=== PATIENT | female | born 1940 | race Caucasian/White ===

== ENCOUNTER 2016-07-09 13:35 | Emergency (ER) | payer MEDICARE, OTHER ==
--- NOTE | 2016-07-09 14:11 | ERPHSYRPT ---
- History of Present Illness Time Seen by Provider: 07/09/16 14:10 Source: patient, family Exam Limitations: no limitations Patient Subjective Stated Complaint: PT REPORTS HAVING THE FLU THIS WEEK-STATES IT HAS WENT INTO HER LUNGS-REPORTS PRODUCTIVE COUGH WITH WHITE SPUTUM-REPORTS FEVER AT HOME A FEW DAYS AGO Triage Nursing Assessment: PT PALE WARM ET [id number] IN COMPLETE SENTENCES WITHE ASE-NO RETRACTIONS NOTED-PERSISTANT COUGH NOTED DURING TRIAGE- LUNGS DIMINISHED Physician History: The patient is 76-year-old female with family complaining that one week ago she had flulike symptoms that included a sore throat cough and fever. Now for the last 2 days her cough has increased especially at night. She states that every time she has a problem with a flulike illness it ends up settling in her lungs. Her past medical history is significant for asthma, COPD, hypertension, and diabetes. Timing/Duration: week(s) (1) Cough Quality/Degree: moderate, productive cough, sputum Possible Cause: frequent episodes Modifying Factors: Improves With: albuterol inhaler, albuterol nebulizer, coughing Associated Symptoms: cough, shortness of breath Allergies/Adverse Reactions: Iodinated Contrast Media - Oral and Allergy (Intermediate, Verified 07/09/16 13: 48) Hives hives, rash, diff breathing belladonna alkaloids [From B & O 16-A Supprette] Allergy (Mild, Verified 13:48) CHILD ALLERGY cephalexin monohydrate [From Keflex] Allergy (Mild, Verified 07/09/16 13:48) Hives furosemide [From Lasix] Allergy (Mild, Verified 07/09/16 13:48) HEART ARTHYM prochlorperazine edisylate [From Compazine] Allergy (Mild, Verified 07/09/16 13: 48) HALLUCINATIONS prochlorperazine maleate [From Compazine] Allergy (Mild, Verified 07/09/16 13:48 ) HALLUCINATIONS Sulfa (Sulfonamide Antibiotics) [Sulfa(Sulfonamide Antibiotics)] Allergy (Mild, Verified 07/09/16 13:48) Hives codeine [Codeine] Adverse Reaction (Mild, Verified 07/09/16 13:48) Headache hydrocodone bitartrate [From Vicodin] Adverse Reaction (Mild, Verified 07/09/16 13:48) Headache ketorolac tromethamine [From Toradol] Adverse Reaction (Mild, Verified 07/09/16 13:48) Vomiting metformin HCl [From Glucophage] Adverse Reaction (Mild, Verified 07/09/16 13:48) Vomiting naproxen [From Naprosyn] Adverse Reaction (Mild, Verified 07/09/16 13:48) Headache opium *RETIRED-06/05/12 [From B & O 16-A Supprette] Adverse Reaction (Mild, Verified 07/09/16 13:48) DON'T LIKE THEM phenytoin sodium [From Dilantin] Adverse Reaction (Mild, Verified 07/09/16 13:48 ) FEEL DRUNK phenytoin sodium extended [From Dilantin] Adverse Reaction (Mild, Verified 07/09 13:48) FEEL DRUNK fluoxetine HCl [From Prozac] Adverse Reaction (Verified 07/09/16 13:48) Lactobacillus acidophilus [From Acidophilus] Adverse Reaction (Verified 13:48) diuretics Allergy (Intermediate, Uncoded 07/09/16 13:48) HEART ARRHYTHMIAS pt states she is allergic to all diuretics. pt has cardiac arrhythmias influenza vaccine Adverse Reaction (Uncoded 07/09/16 13:48) Home Medications: Levothyroxine Sodium 50 Mcg [Synthroid 50 Mcg] 25 mcg PO DAILY 09/03/11 [ History] Lisinopril 5 mg PO DAILY 09/03/11 [History] Omeprazole 20 MG [Prilosec 20 mg] 20 mg PO DAILY 09/03/11 [History] Insulin Detemir [Levemir] 45 unit SQ 1900 10/20/11 [History] Carvedilol 6.25 mg [Coreg 6.25 MG] 12.5 mg PO BID 09/30/13 [History] Potassium Chloride [K-Dur] 10 meq PO QID 09/30/13 [History] Albuterol Sulfate [Proair Hfa] 0 gm IH UD 06/27/15 [History] Hx Tetanus, Diphtheria Vaccination/Date Given: No Hx Influenza Vaccination/Date Given: No Hx Pneumococcal Vaccination/Date Given: No Immunizations Up to Date: Yes - Review of Systems Constitutional: No Fever, No Chills Eyes: No Symptoms Ears, Nose, & Throat: No Symptoms Respiratory: Cough, Dyspnea on Exertion (VILLEGAS), Wheezing Cardiac: No Chest Pain, No Edema, No Syncope Abdominal/Gastrointestinal: No Abdominal Pain, No Nausea, No Vomiting, No Diarrhea Genitourinary Symptoms: No Dysuria Musculoskeletal: No Back Pain, No Neck Pain Skin: No Rash Neurological: No Dizziness, No Focal Weakness, No Sensory Changes Psychological: No Symptoms Endocrine: No Symptoms Hematologic/Lymphatic: No Symptoms Immunological/Allergic: No Symptoms All Other Systems: Reviewed and Negative - Past Medical History Pertinent Past Medical History: Yes Neurological History: No Pertinent History ENT History: No Pertinent History Cardiac History: Congestive Heart Failure, Hypertension Respiratory History: Asthma, Bronchitis, Emphysema Endocrine Medical History: Diabetes Type II, Hypothyroidism Musculoskeletal History: Arthritis, Osteoarthritis GI Medical History: GERD History: No Pertinent History Psycho-Social History: Depression Female Reproductive Disorders: Breast Cancer, Cervical Cancer Other Medical History: CANCERS ALL IN REMISSION - Past Surgical History Past Surgical History: Yes Neuro Surgical History: No Pertinent History Cardiac: Cardiac Catheterization Respiratory: Lobectomy Gastrointestinal: Appendectomy, Cholecystectomy, Hemorrhoidectomy Genitourinary: No Pertinent History Musculoskeletal: Orthopedic Surgery Female Surgical History: Hysterectomy, Tubal Ligation, Other Other Surgical History: MASTECTOMY RT BREAST,BREAST CA,LUNG RT MIDDLE LOBE REMOVED,NISSON FLUNDOPLASTY,KNEE BACL SURG, shoulder surgery - Social History Smoking Status: Former smoker How long have you smoked: 5 Exposure to second hand smoke: No Drug Use: none Patient Lives Alone: Yes - Female History Hx Now: No - Nursing Vital Signs Nursing Vital Signs: Initial Vital Signs Temperature 97.7 F Temperature Source Oral Pulse Rate 89 Respiratory Rate 20 Blood Pressure [Left Arm] 137/82 Pain Intensity 0 - Physical Exam General Appearance: no apparent distress, alert Eye Exam: PERRL/EOMI, eyes nml inspection Ears, Nose, Throat Exam: normal ENT inspection Neck Exam: normal inspection, non-tender, supple, full range of motion Respiratory Exam: normal breath sounds, lungs clear, No respiratory distress, No prolonged expirations, No rhonchi, No wheezing Cardiovascular Exam: regular rate/rhythm, normal heart sounds Gastrointestinal/Abdomen Exam: soft, No tenderness Pelvic Exam: not done Rectal Exam: not done Back Exam: normal inspection, No CVA tenderness, No vertebral tenderness Extremity Exam: normal inspection, normal range of motion Neurologic Exam: alert, oriented x 3, cooperative, normal mood/affect, sensation nml, No motor deficits Skin Exam: normal color, warm, dry, No rash Lymphatic Exam: No adenopathy SpO2 Interpretation: normal SpO2: 98 Oxygen Delivery: Room Air - Radiology Exams Chest X-ray Interpretation: Interpreted by me, Negative (non acute CXR, unchanged comp CXR 06/27/15) Ordered Tests: Active Orders 24 hr Category Date Time Status CHEST 2 VIEWS (PA AND LAT) Stat Exams 07/09/16 14:14 Taken - Progress Progress: unchanged Blood Culture(s) Obtained: No Antibiotics given: Yes Counseled pt/family regarding: diagnosis, rad results - Departure Time of Disposition: 15:01 Departure Disposition: Home Clinical Impression: Bronchitis Condition: Stable Critical Care Time: No Additional Instructions: You have bronchitis. The chest x-ray did not show pneumonia. Take prednisone 60 mg daily for 5 days. Take levofloxacin 500 mg for 7 days. Continue to take your breathing treatments as needed. Follow-up in one to 2 days. Prescriptions: Levofloxacin [Levofloxacin 500 MG Tablet] 500 mg PO QAM #7 tablet Prednisone 10 mg [Deltasone 10 mg] 60 mg PO UD #30 tablet
[2016-07-09 14:51] VITALS: BP 137/82; PULSE 89
[2016-07-09 15:08] VITALS: O2SAT 98
--- NOTE | 2016-07-09 22:36 | XRAY ---
Indication: Cough. Comparison: June 27, 2015. PA/lateral chest again hyperinflated with right base pleural thickening and postsurgical changes in the right chest and epigastrium. Remaining lungs clear. Heart is not enlarged. Bony thorax intact again with mild osteopenia, degenerative changes, and scoliosis. Impression: Stable nonacute chest with chronic features.
== END 2016-07-09 15:17 | disposition home or self-care (01) ==
LOC: ED 13:35
DX: J40 Bronchitis, not specified as acute or chronic (principal); R05 Cough; R06.09 Other forms of dyspnea; R06.2 Wheezing; J45.909 Unspecified asthma, uncomplicated; J43.9 Emphysema, unspecified; Z79.899 Other long term (current) drug therapy
CPT/HCPCS: 71020; 99284

== ENCOUNTER 2016-10-14 15:24 | Emergency (ER) | payer MEDICARE, OTHER ==
[2016-10-14] MEDS ORDERED: ATARAX 25 MG PO ONE (15:51)
[2016-10-14] MEDS ORDERED: ATARAX 25 MG ONE (15:54)
--- NOTE | 2016-10-14 16:05 | ERPHSYRPT ---
- History of Present Illness Time Seen by Provider: 10/14/16 15:39 Source: patient, family (son) Patient Subjective Stated Complaint: PT REPORTS BP IS HIGH-STATES THAT DR PATEL RECENTLY CHANGED HER BP MED-DENIES HEADACHE-DENIES NUMBNESS OR TINLGING- REPORTS RECENT SURGERY TO SHOULDER Triage Nursing Assessment: PT PINK WARM ET [id number] REACTIVE-ANSWERING ALL QUESTIONS CORRECTLY-NO UNUSUAL PAIN OR SENSATION Physician History: CC: high blood pressure Hx: 76 y/o patient of Dr Escobar/Manjeet/Tj. She had left shoulder surgery 10 days ago. Has done very well. She is taking ultracet and meperidine for post op pain as she has several other allergies. She noted higher BP yesterday. Called Dr Patel and was told to increase amlodipine from 2.5mg to 5mg daily. She has had some headache. Some increased shoulder pain. No fever or chills. She called [facility] and was told to come to ER for BP check. No chest or abd pain. No swelling. No N/T/W. Timing/Duration: yesterday Severity: moderate Allergies/Adverse Reactions: doxycycline Allergy (Intermediate, Verified 10/14/16 15:37) Swelling Iodinated Contrast- Oral and IV Dye Allergy (Intermediate, Verified 10/14/16 15: 37) Hives hives, rash, diff breathing belladonna alkaloids [From B & O 16-A Supprette] Allergy (Mild, Verified 15:37) CHILD ALLERGY cephalexin monohydrate [From Keflex] Allergy (Mild, Verified 10/14/16 15:37) Hives furosemide [From Lasix] Allergy (Mild, Verified 10/14/16 15:37) HEART ARTHYM prochlorperazine edisylate [From Compazine] Allergy (Mild, Verified 10/14/16 15: 37) HALLUCINATIONS prochlorperazine maleate [From Compazine] Allergy (Mild, Verified 10/14/16 15:37 ) HALLUCINATIONS Sulfa (Sulfonamide Antibiotics) [Sulfa(Sulfonamide Antibiotics)] Allergy (Mild, Verified 10/14/16 15:37) Hives codeine [Codeine] Adverse Reaction (Mild, Verified 10/14/16 15:37) Headache hydrocodone bitartrate [From Vicodin] Adverse Reaction (Mild, Verified 10/14/16 15:37) Headache ketorolac tromethamine [From Toradol] Adverse Reaction (Mild, Verified 10/14/16 15:37) Vomiting metformin HCl [From Glucophage] Adverse Reaction (Mild, Verified 10/14/16 15:37) Vomiting naproxen [From Naprosyn] Adverse Reaction (Mild, Verified 10/14/16 15:37) Headache opium *RETIRED-06/05/12 [From B & O 16-A Supprette] Adverse Reaction (Mild, Verified 10/14/16 15:37) DON'T LIKE THEM phenytoin sodium [From Dilantin] Adverse Reaction (Mild, Verified 10/14/16 15:37 ) FEEL DRUNK phenytoin sodium extended [From Dilantin] Adverse Reaction (Mild, Verified 10/14 15:37) FEEL DRUNK fluoxetine HCl [From Prozac] Adverse Reaction (Verified 10/14/16 15:37) Lactobacillus acidophilus [From Acidophilus] Adverse Reaction (Verified 15:37) diuretics Allergy (Intermediate, Uncoded 10/14/16 15:37) HEART ARRHYTHMIAS pt states she is allergic to all diuretics. pt has cardiac arrhythmias influenza vaccine Adverse Reaction (Uncoded 10/14/16 15:37) Home Medications: Albuterol Sulfate [Ventolin Hfa] 8 gm IH UD 10/14/16 [History] Amlodipine Besylate 5 mg [Norvasc 5 mg] 5 mg PO DAILY 10/14/16 [History] Carvedilol 12.5 mg [Coreg 12.5 mg] 12.5 mg PO DAILY 10/14/16 [History] Fluoxetine HCl 20 mg [Prozac 20 MG] 20 mg PO DAILY 10/14/16 [History] Fluticasone/Salmeterol [Advair 250-50 Diskus] 1 each IH BID 10/14/16 [History] Glimepiride 2 mg [Amaryl 2 MG] 2 mg PO DAILY 10/14/16 [History] Insulin Detemir [Levemir] 45 unit SQ UD 10/14/16 [History] Levothyroxine Sodium 25 Mcg [Synthroid 25 Mcg] 25 mcg PO DAILY 10/14/16 [ History] Lisinopril 10 mg [Zestril 10 MG] 10 mg PO BID 10/14/16 [History] Loratadine 10 mg [Claritin 10 mg] 10 mg PO DAILY 10/14/16 [History] Lutein 10 mg PO DAILY 10/14/16 [History] Meperidine HCl 50 mg [Demerol 50 MG] 50 mg PO UD 10/14/16 [History] Metolazone 2.5 mg [Zaroxolyn 2.5 MG] 2.5 mg PO UD 10/14/16 [History] Omeprazole 20 MG [Prilosec 20 mg] 20 mg PO DAILY 10/14/16 [History] Potassium Chloride 10 Meq Tab* [Klor Con 10 MEQ] 10 meq PO BID 10/14/16 [ History] Tramadol HCl/Acetaminophen [Tramadol-Acetaminophn 37.5-325] 1 each PO UD [History] Hx Tetanus, Diphtheria Vaccination/Date Given: No Hx Influenza Vaccination/Date Given: No Hx Pneumococcal Vaccination/Date Given: No Immunizations Up to Date: Yes - Review of Systems Constitutional: No Fever, No Chills Eyes: No Symptoms Ears, Nose, & Throat: No Symptoms Respiratory: No Cough, No Dyspnea Cardiac: No Chest Pain Abdominal/Gastrointestinal: No Abdominal Pain, No Nausea, No Vomiting Skin: No Rash Neurological: Headache, No Focal Weakness, No Parasthesia All Other Systems: Reviewed and Negative - Past Medical History Pertinent Past Medical History: Yes Neurological History: No Pertinent History ENT History: No Pertinent History Cardiac History: Congestive Heart Failure, Hypertension Respiratory History: Asthma, Bronchitis, Emphysema Endocrine Medical History: Diabetes Type II, Hypothyroidism Musculoskeletal History: Arthritis, Osteoarthritis GI Medical History: GERD History: No Pertinent History Psycho-Social History: Depression Female Reproductive Disorders: Breast Cancer, Cervical Cancer Other Medical History: CANCERS ALL IN REMISSION - Past Surgical History Past Surgical History: Yes Neuro Surgical History: No Pertinent History Cardiac: Cardiac Catheterization Respiratory: Lobectomy Gastrointestinal: Appendectomy, Cholecystectomy, Hemorrhoidectomy Genitourinary: No Pertinent History Musculoskeletal: Orthopedic Surgery Female Surgical History: Hysterectomy, Tubal Ligation, Other Other Surgical History: MASTECTOMY RT BREAST,BREAST CA,LUNG RT MIDDLE LOBE REMOVED,NISSON FLUNDOPLASTY,KNEE BACL SURG, shoulder surgery - Social History Smoking Status: Former smoker How long have you smoked: 5 Exposure to second hand smoke: No Drug Use: none Patient Lives Alone: Yes - Female History Hx Now: No - Nursing Vital Signs Nursing Vital Signs: Initial Vital Signs Temperature 97.2 F 10/14/16 15:38 Pulse Rate 69 10/14/16 15:38 Respiratory Rate 18 10/14/16 15:38 Blood Pressure 188/82 10/14/16 15:38 O2 Sat by Pulse Oximetry 96 10/14/16 15:38 Pain Scale Pain Intensity 7 - Physical Exam General Appearance: alert Eye Exam: PERRL/EOMI Ears, Nose, Throat Exam: moist mucous membranes Neck Exam: normal inspection, non-tender, supple Respiratory Exam: normal breath sounds Cardiovascular Exam: regular rate/rhythm Gastrointestinal/Abdomen Exam: soft, No tenderness, No distention Extremity Exam: normal inspection, other (left shoulder has some bruising but appears well without erythema.) Neurologic Exam: alert, oriented x 3, cooperative Skin Exam: warm, dry SpO2 Interpretation: normal SpO2: 96 Oxygen Delivery: Room Air - Course Nursing assessment & vital signs reviewed: Yes Ordered Tests: Active Orders 24 hr Category Date Time Status CBC W DIFF Stat Lab 10/14/16 16:06 Completed CMP Stat Lab 10/14/16 16:06 Completed Medication Summary Discontinued Medications Generic Name Dose Route Start Last Admin Trade Name Freq PRN Reason Stop Dose Admin Hydroxyzine HCl 25 mg 10/14/16 15:51 10/14/16 15:55 Atarax 25 Mg PO 10/14/16 15:52 25 mg STAT ONE Administration Hydroxyzine HCl Confirm 10/14/16 15:54 Atarax 25 Mg Administered 10/14/16 15:55 Dose 25 mg .ROUTE .STK-MED ONE Lab/Rad Data: Laboratory Result Diagrams 10/14/16 16:06 10/14/16 16:06 Laboratory Results 10/14/16 10/14/16 Range/Units 16:06 16:06 WBC 7.3 (4.0-10.5) K/mm3 RBC 4.88 (4.1-5.4) M/mm3 Hgb 14.0 (12.0-16.0) gm/dl Hct 43.0 (35-47) % MCV 88.1 (78-100) fl MCH 28.7 (26-32) pg MCHC 32.6 (32-36) g/dl RDW 14.2 H (11.5-14.0) % Plt Count 195 (150-450) K/mm3 MPV 11.4 H (6-9.5) fl Gran % 45.5 (36.0-66.0) % Lymphocytes % 42.7 (24.0-44.0) % Monocytes % 7.0 (0.0-12.0) % Eosinophils % 4.1 (0.00-5.0) % Basophils % 0.7 (0.0-0.4) % Basophils # 0.05 (0-0.4) Sodium 141 (136-145) mEq/L Potassium 4.0 (3.5-5.1) mEq/L Chloride 103 (98-107) mEq/L Carbon Dioxide 31.8 (21-32) mEq/L Anion Gap 10.2 (5-15) MEQ/L BUN 11 (9-20) mg/dL Creatinine 0.93 (0.55-1.30) mg/dl Estimated GFR > 60 ML/MIN Glucose 209 H (70-110) MG/DL Calcium 9.1 (8.5-10.1) mg/dL Total Bilirubin 0.30 (0.2-1.0) mg/dL AST 13 L (15-37) U/L ALT 21 (12-78) U/L Alkaline Phosphatase 80 (46-116) U/L Serum Total Protein 6.2 L (6.4-8.2) gm/dL Albumin 3.1 L (3.4-5.0) g/dL - Progress Progress Note: 10/14/16 16:39 BP improving. Creat wnl. She feels about same or some better. Will release with instr. Counseled pt/family regarding: lab results, diagnosis, need for follow-up - Departure Time of Disposition: 16:40 Departure Disposition: Home Clinical Impression: Hypertension Condition: Stable Critical Care Time: No Referrals: SEAN BABB [Primary Care Provider] - Instructions: High Blood Pressure Additional Instructions: Continue increased dose of norvasc of 5mg daily. No driving today. Follow up next week with Dr Patel/Shawn. Return for problems or concerns.
[2016-10-14 16:11] LABS: BASOPHIL % 0.7 % (0.0-0.4); Eosinophil % 4.1 % (0.00-5.0); Granulocytes % 45.5 % (36.0-66.0); Lymphocytes % 42.7 % (24.0-44.0); Mean Cell Volume 88.1 fl (78-100); Mean Corpuscular Hemoglobin 28.7 pg (26-32); Mean Platelet Volume 11.4 fl (6-9.5); Platelet Count 195 K/mm3 (150-450); Red Blood Count 4.88 M/mm3 (4.1-5.4); Red Cell Distribution Width 14.2 % (11.5-14.0); White Blood Count 7.3 K/mm3 (4.0-10.5)
[2016-10-14 16:28] LABS: ALBUMIN 3.1 g/dL (3.4-5.0); ALKALINE PHOSPHATASE 80 U/L (46-116); ANION GAP 10.2 MEQ/L (5-15); BLOOD UREA NITROGEN 11 mg/dL (9-20); CHLORIDE 103 mEq/L (98-107); Carbon Dioxide 31.8 mEq/L (21-32); Glucose 209 MG/DL (70-110); SGOT/AST 13 U/L (15-37); SGPT/ALT 21 U/L (12-78); SODIUM 141 mEq/L (136-145); Total Protein 6.2 gm/dL (6.4-8.2)
[2016-10-14 16:47] VITALS: BP 163/80; PULSE 68; O2SAT 98
== END 2016-10-14 16:47 | disposition home or self-care (01) ==
LOC: ED 15:24
DX: I10 Essential (primary) hypertension (principal)
CPT/HCPCS: 36415; 80053; 85025; 99283; A9270-GY

== ENCOUNTER 2016-11-11 16:57 | Emergency (ER) | payer MEDICARE, OTHER ==
--- NOTE | 2016-11-11 17:36 | ERPHSYRPT ---
- History of Present Illness Time Seen by Provider: 11/11/16 17:01 Source: patient, family (son) Patient Subjective Stated Complaint: PT REPORTS HTN TODAY-STATES SHE HAD A BP OF 183/127 WITH A WRIST MONITOR-REPORTS HEADACHE UNSURE OF WHEN IT BEGAN-DENIES NUMBNESS OR TINLGING Triage Nursing Assessment: PT PALE WARM ET [id number] TO MOVE ALL EXTREMITIES EXCEPT LEFT SHOULDER DUE TO SURGERY ON OCT 03-RESP EASY ET NONLABORED-PUPILS REACTIVE Physician History: CC: high blood pressure Hx: 76 y/o patient of Dr Galvez/Tj with hx of HTN and diabetes. She had recent shoulder surgery and has been recuperating. The pillow splint is now off and she is doing better and only uses pain medication at night for sleep occasionally. She had low blood sugar two nights ago self treated with orange juice. Dr Patel has been adjusting her medications for BP. She had some swelling with norvasc. Today the BP was elevated 188 systolic by her wrist cuff. She check a few times and was concerned. She had a mild headache and felt woozy today. No focal weakness, numbness, chest pain, vomiting or other concerns. Timing/Duration: today Severity: mild Allergies/Adverse Reactions: doxycycline Allergy (Intermediate, Verified 11/11/16 17:09) Swelling Iodinated Contrast- Oral and IV Dye Allergy (Intermediate, Verified 11/11/16 17: 09) Hives hives, rash, diff breathing belladonna alkaloids [From B & O 16-A Supprette] Allergy (Mild, Verified 17:09) CHILD ALLERGY cephalexin monohydrate [From Keflex] Allergy (Mild, Verified 11/11/16 17:09) Hives furosemide [From Lasix] Allergy (Mild, Verified 11/11/16 17:09) HEART ARTHYM prochlorperazine edisylate [From Compazine] Allergy (Mild, Verified 11/11/16 17: 09) HALLUCINATIONS prochlorperazine maleate [From Compazine] Allergy (Mild, Verified 11/11/16 17:09 ) HALLUCINATIONS Sulfa (Sulfonamide Antibiotics) [Sulfa(Sulfonamide Antibiotics)] Allergy (Mild, Verified 11/11/16 17:09) Hives codeine [Codeine] Adverse Reaction (Mild, Verified 11/11/16 17:09) Headache hydrocodone bitartrate [From Vicodin] Adverse Reaction (Mild, Verified 11/11/16 17:09) Headache ketorolac tromethamine [From Toradol] Adverse Reaction (Mild, Verified 11/11/16 17:09) Vomiting metformin HCl [From Glucophage] Adverse Reaction (Mild, Verified 11/11/16 17:09) Vomiting naproxen [From Naprosyn] Adverse Reaction (Mild, Verified 11/11/16 17:09) Headache opium *RETIRED-06/05/12 [From B & O 16-A Supprette] Adverse Reaction (Mild, Verified 11/11/16 17:09) DON'T LIKE THEM phenytoin sodium [From Dilantin] Adverse Reaction (Mild, Verified 11/11/16 17:09 ) FEEL DRUNK phenytoin sodium extended [From Dilantin] Adverse Reaction (Mild, Verified 11/11 17:09) FEEL DRUNK fluoxetine HCl [From Prozac] Adverse Reaction (Verified 11/11/16 17:09) Lactobacillus acidophilus [From Acidophilus] Adverse Reaction (Verified 17:09) diuretics Allergy (Intermediate, Uncoded 11/11/16 17:09) HEART ARRHYTHMIAS pt states she is allergic to all diuretics. pt has cardiac arrhythmias influenza vaccine Adverse Reaction (Uncoded 11/11/16 17:09) Home Medications: Albuterol Sulfate [Ventolin Hfa] 8 gm IH UD 10/14/16 [History] Amlodipine Besylate 5 mg [Norvasc 5 mg] 5 mg PO DAILY 10/14/16 [History] Carvedilol 12.5 mg [Coreg 12.5 mg] 12.5 mg PO DAILY 10/14/16 [History] Fluoxetine HCl 20 mg [Prozac 20 MG] 20 mg PO DAILY 10/14/16 [History] Fluticasone/Salmeterol [Advair 250-50 Diskus] 1 each IH BID 10/14/16 [History] Glimepiride 2 mg [Amaryl 2 MG] 2 mg PO DAILY 10/14/16 [History] Insulin Detemir [Levemir] 45 unit SQ UD 10/14/16 [History] Levothyroxine Sodium 25 Mcg [Synthroid 25 Mcg] 25 mcg PO DAILY 10/14/16 [ History] Lisinopril 10 mg [Zestril 10 MG] 10 mg PO BID 10/14/16 [History] Loratadine 10 mg [Claritin 10 mg] 10 mg PO DAILY 10/14/16 [History] Lutein 10 mg PO DAILY 10/14/16 [History] Metolazone 2.5 mg [Zaroxolyn 2.5 MG] 2.5 mg PO UD 10/14/16 [History] Omeprazole 20 MG [Prilosec 20 mg] 20 mg PO DAILY 10/14/16 [History] Potassium Chloride 10 Meq Tab* [Klor Con 10 MEQ] 10 meq PO BID 10/14/16 [ History] Tramadol HCl/Acetaminophen [Tramadol-Acetaminophn 37.5-325] 1 each PO UD [History] Hx Tetanus, Diphtheria Vaccination/Date Given: No Hx Influenza Vaccination/Date Given: No Hx Pneumococcal Vaccination/Date Given: No Immunizations Up to Date: Yes - Review of Systems Constitutional: Malaise, No Fever, No Chills Eyes: No Symptoms, No Vision Changes Ears, Nose, & Throat: No Symptoms Respiratory: No Cough, No Dyspnea Cardiac: Edema, No Chest Pain, No Syncope Abdominal/Gastrointestinal: No Abdominal Pain, No Nausea, No Vomiting Skin: No Rash Neurological: Headache, No Dizziness, No Focal Weakness, No Parasthesia All Other Systems: Reviewed and Negative - Past Medical History Pertinent Past Medical History: Yes Neurological History: No Pertinent History ENT History: No Pertinent History Cardiac History: Congestive Heart Failure, Hypertension Respiratory History: Asthma, Bronchitis, Emphysema Endocrine Medical History: Diabetes Type II, Hypothyroidism Musculoskeletal History: Arthritis, Osteoarthritis GI Medical History: GERD History: No Pertinent History Psycho-Social History: Depression Female Reproductive Disorders: Breast Cancer, Cervical Cancer Other Medical History: CANCERS ALL IN REMISSION - Past Surgical History Past Surgical History: Yes Neuro Surgical History: No Pertinent History Cardiac: Cardiac Catheterization Respiratory: Lobectomy Gastrointestinal: Appendectomy, Cholecystectomy, Hemorrhoidectomy Genitourinary: No Pertinent History Musculoskeletal: Orthopedic Surgery Female Surgical History: Hysterectomy, Tubal Ligation, Other Other Surgical History: MASTECTOMY RT BREAST,BREAST CA,LUNG RT MIDDLE LOBE REMOVED,NISSON FLUNDOPLASTY,KNEE BACL SURG, shoulder surgery - Social History Smoking Status: Former smoker How long have you smoked: 5 Exposure to second hand smoke: No Drug Use: none Patient Lives Alone: Yes - Female History Hx Now: No - Nursing Vital Signs Nursing Vital Signs: Initial Vital Signs Temperature 98.5 F 11/11/16 17:05 Pulse Rate 67 11/11/16 17:05 Respiratory Rate 20 11/11/16 17:05 Blood Pressure 153/71 11/11/16 17:05 O2 Sat by Pulse Oximetry 97 11/11/16 17:05 Pain Scale Pain Intensity 4 - Physical Exam General Appearance: alert, other (pleasant lady accompanied by her son) Eye Exam: PERRL/EOMI Ears, Nose, Throat Exam: normal ENT inspection, moist mucous membranes Neck Exam: normal inspection, supple Respiratory Exam: normal breath sounds Cardiovascular Exam: regular rate/rhythm Gastrointestinal/Abdomen Exam: soft, No tenderness, No distention Extremity Exam: pedal edema (1-2 + both legs/ankles), other (sling on left arm) Neurologic Exam: alert, oriented x 3, 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, sensation nml, No motor deficits Skin Exam: warm, dry, No rash SpO2 Interpretation: normal SpO2: 97 Oxygen Delivery: Room Air - Course Nursing assessment & vital signs reviewed: Yes Ordered Tests: Active Orders 24 hr Category Date Time Status Clean Catch Urine Specimen STAT Care 11/11/16 17:25 Active BMP Stat Lab 11/11/16 17:40 Completed UA W/RFX UR CULTURE Stat Lab 11/11/16 17:30 Completed Lab/Rad Data: Laboratory Result Diagrams 11/11/16 17:40 Laboratory Results 11/11/16 11/11/16 Range/Units 17:40 17:30 Sodium 140 (136-145) mEq/L Potassium 3.7 (3.5-5.1) mEq/L Chloride 105 (98-107) mEq/L Carbon Dioxide 28.1 (21-32) mEq/L Anion Gap 10.6 (5-15) MEQ/L BUN 10 (9-20) mg/dL Creatinine 0.84 (0.55-1.30) mg/dl Estimated GFR > 60 ML/MIN Glucose 185 H (70-110) MG/DL Calcium 8.6 (8.5-10.1) mg/dL Ur Collection Type CLEAN CATCH Urine Color YELLOW (YELLOW) Urine Appearance CLEAR (CLEAR) Urine pH 5.0 (5-6) Ur Specific [place] 1.015 (1.005-1.025) Urine Protein NEGATIVE (Negative) Urine Ketones NEGATIVE (NEGATIVE) Urine Blood NEGATIVE (0-5) Michael/ul Urine Nitrite NEGATIVE (NEGATIVE) Urine Bilirubin NEGATIVE (NEGATIVE) Urine Urobilinogen NORMAL (0-1) mg/dL Ur Leukocyte Esterase NEGATIVE (NEGATIVE) Urine Glucose NEGATIVE (NEGATIVE) mg/dL Specimen Received 11/11/16:1730 - Progress Progress Note: 11/11/16 17:35 She is concerned about blood pressure. She has mild vague symptoms. Nonfocal neuro exam. Son is concerned about having adequate blood pressure machine at home. Current BP is 154/60 on two checks. 11/11/16 18:20 BP 150/69. UA and BMP reassuring. Paged Dr Patel at patient's request as she already spoke to him today. 11/11/16 18:[address] Patel. He advised medication same and follow up in office this week. Will release with instr. Son is going to take the wrist machine to get it correlated or calibrated. Counseled pt/family regarding: lab results, diagnosis, need for follow-up - Departure Time of Disposition: 18:54 Departure Disposition: Home Clinical Impression: Hypertension Qualifiers: Hypertension type: essential hypertension Qualified Code(s): I10 - Essential ( primary) hypertension Condition: Stable Critical Care Time: No Referrals: REBECCA GALVEZ MD [Primary Care Provider] - LUL PATEL [ACTIVE STAFF] - Instructions: High Blood Pressure Additional Instructions: Take your normal medications. Call Dr Patel Sunday to be seen this week. Check blood pressure twice a day and record for doctor. Return for problems or concerns.
[2016-11-11 17:45] LABS: ADD URINE CULTURE? NO (NO); Bilirubin NEGATIVE (NEGATIVE); Blood NEGATIVE Ery/ul (0-5); COMPLETE URINE MICROSCOPIC? NO; Collection Type CLEAN CATCH; Glucose NEGATIVE (NEGATIVE); Leukocyte Esterase NEGATIVE (NEGATIVE)
[2016-11-11 17:59] LABS: ANION GAP 10.6 MEQ/L (5-15); BLOOD UREA NITROGEN 10 mg/dL (9-20); CHLORIDE 105 mEq/L (98-107); Carbon Dioxide 28.1 mEq/L (21-32); Glucose 185 MG/DL (70-110); Potassium 3.7 mEq/L (3.5-5.1); SODIUM 140 mEq/L (136-145)
[2016-11-11 18:44] VITALS: BP 143/66; PULSE 61
[2016-11-11 18:56] VITALS: O2SAT 97
== END 2016-11-11 19:08 | disposition home or self-care (01) ==
LOC: ED 16:57
DX: I10 Essential (primary) hypertension (principal); E11.9 Type 2 diabetes mellitus without complications
CPT/HCPCS: 36415; 80048; 81002; 99282

== ENCOUNTER 2017-03-26 16:15 | Observation (INO) | payer MEDICARE, OTHER ==
--- NOTE | 2017-03-26 17:31 | XRAY ---
Indication: COPD exacerbation. Comparison: July 09, 2016. PA/lateral chest again hyperinflated with right costophrenic blunting. New right middle lobe infiltrate versus atelectasis. Also new left apical 2 cm nodularity and possibly similar right base 2.5 cm nodularity. Heart is not enlarged. Bony thorax intact again with mild degenerative changes and scoliosis. Stable right axillary negrito dissection, right breast surgical clips, and epigastric surgical clips. Impression: 1. New right middle lobe infiltrate/atelectasis. Correlate clinically. 2. New left apical and possibly right base nodularities that can be better evaluated with CT.
[2017-03-26 17:39] LABS: Hematocrit 44.8 % (35-47); Hemoglobin 14.7 gm/dl (12.0-16.0); Mean Cell Volume 87.7 fl (78-100); Mean Corpuscular Hemoglobin 28.8 pg (26-32); Mean Corpuscular Hgb Concent. 32.8 g/dl (32-36); Mean Platelet Volume 11.2 fl (6-9.5); Platelet Count 165 K/mm3 (150-450); Red Blood Count 5.11 M/mm3 (4.1-5.4); Red Cell Distribution Width 13.7 % (11.5-14.0); White Blood Count 9.2 K/mm3 (4.0-10.5)
[2017-03-26 18:00] LABS: ALBUMIN 3.2 g/dL (3.4-5.0); ALKALINE PHOSPHATASE 60 U/L (46-116); ANION GAP 12.2 MEQ/L (5-15); BLOOD UREA NITROGEN 15 mg/dL (9-20); CHLORIDE 104 mEq/L (98-107); Calcium 8.8 mg/dL (8.5-10.1); Carbon Dioxide 26.9 mEq/L (21-32); Creatinine 1 0.91 mg/dl (0.55-1.30); EST GLOMERULAR FILTRATION RATE > 60 ML/MIN; Glucose 162 MG/DL (70-110); Potassium 3.8 mEq/L (3.5-5.1); SGOT/AST 12 U/L (15-37); SGPT/ALT 14 U/L (12-78); SODIUM 139 mEq/L (136-145); Total Protein 6.5 gm/dL (6.4-8.2)
[2017-03-26 18:12] LABS: INFLUENZA A NEGATIVE (NEGATIVE); INFLUENZA B NEGATIVE (NEGATIVE); RESPIRATORY SYNCTIAL VIRUS NEGATIVE (Negative)
[2017-03-26] MEDS ORDERED: Levofloxacin 500MG/100ML D5W 500 MG/100 ML BAG IV SCH (18:30)
[2017-03-26] MEDS: Sodium Chloride 0.9% 1000 ML 1,000 ML IV SCH (20:02)
[2017-03-26] MEDS: DUONEB 0.5-3 MG/3 ml Neb IH SCH ×2 (20:09→23:17)
[2017-03-26] MEDS: Advair Hfa 115/21 Common canister IH SCH (20:14)
[2017-03-26] MEDS ORDERED: Ventolin Hfa MDI IH SCH (21:00)
[2017-03-26] MEDS: Klor Con 10 MEQ PO SCH (21:16)
[2017-03-26] MEDS: COREG 12.5 MG PO SCH (21:17)
[2017-03-26] MEDS ORDERED: TYLENOL EXTRA STRENGTH 500 MG PO SCH (22:00)
[2017-03-26] MEDS ORDERED: Lantus Insulin SQ SCH (22:00)
[2017-03-26] MEDS ORDERED: Zestril 20 MG PO SCH (22:00)
[2017-03-27] MEDS: DUONEB 0.5-3 MG/3 ml Neb IH SCH ×3 (03:21→10:37)
[2017-03-27] MEDS ORDERED: PROVENTIL COMMON CANISTER IH PRN (06:49)
[2017-03-27] MEDS ORDERED: ADVAIR 250-50 DISKUS 14 DOSE IH SCH (07:00)
[2017-03-27] MEDS ORDERED: DUONEB 0.5-3 MG/3 ml Neb IH SCH (07:00)
[2017-03-27] MEDS ORDERED: Nitrostat 0.4 MG Tablet SL PRN (07:00)
[2017-03-27] MEDS ORDERED: Zaroxolyn 2.5 MG PO PRN (07:00)
[2017-03-27] MEDS: Advair Hfa 115/21 Common canister IH SCH (07:30)
[2017-03-27] MEDS: Sodium Chloride 0.9% 1000 ML 1,000 ML IV SCH (07:59)
--- NOTE | 2017-03-27 08:54 | XRAY ---
Indication: Lung nodules on same-day chest radiograph. History right breast cancer and cervical cancer. Multiple contiguous axial images obtained through the chest without contrast as ordered. Comparison: July 30, 2015. New 2.3 cm noncalcified lobular mass in the left upper lobe with tiny surrounding micronodules and 2.5 cm noncalcified mass in the right posterior gutter all worrisome for metastasis. Stable right midlung postsurgical changes with minimal pleural calcifications and tiny left lower lobe calcified granuloma. Right midlung demonstrates new focus of minimal subsegmental atelectasis/scarring secondary to new right hilar 3.4 x 3.8 cm matted lymphadenopathy. Also new 1.5 x 2.7 cm subcarinal lymphadenopathy. No effusion. Heart is not enlarged. No pericardial effusion. Aorta remains minimally arteriosclerotic without aneurysmal dilatation. Stable bilateral hilar calcified nodes. Bony thorax intact again with mild scoliosis, right axillary negrito dissection, and right breast surgical clips. Limited upper abdomen again demonstrates epigastric surgical clips, cholecystectomy clips, fatty liver, calcified splenic granulomas, and 13 cm splenomegaly. Impression: 1. New left upper lobe/right base pulmonary masses and mediastinal/right hilar lymphadenopathy worrisome for metastasis. 2. Stable postsurgical changes, fatty liver, splenomegaly, and evidence for old granulomatous disease. CTDI 17.75
[2017-03-27] MEDS: Klor Con 10 MEQ PO SCH (09:56)
[2017-03-27] MEDS: COREG 12.5 MG PO SCH (09:57)
[2017-03-27] MEDS ORDERED: Zestril 10 MG PO SCH (10:00)
[2017-03-27] MEDS ORDERED: CLARITIN 10 MG PO SCH (10:00)
[2017-03-27] MEDS ORDERED: ENOXAPARIN SODIUM SQ SCH (10:00)
[2017-03-27] MEDS ORDERED: NON-FORMULARY ITEM (Omeprazole 20 Mg [Prilosec 20 Mg] 20 MG) PO SCH (10:00)
[2017-03-27] MEDS ORDERED: NORVASC 5 MG PO SCH (10:00)
[2017-03-27] MEDS ORDERED: Protonix 40MG Tablet PO SCH (10:00)
[2017-03-27] MEDS ORDERED: ECOTRIN 81 MG PO SCH (10:00)
[2017-03-27] MEDS ORDERED: SYNTHROID 25 MCG PO SCH (10:00)
[2017-03-27] MEDS ORDERED: Amaryl 2 MG PO SCH (10:00)
[2017-03-27] MEDS ORDERED: THERAGRAN MULTIVITAMIN PO SCH (10:00)
[2017-03-27] MEDS ORDERED: Prozac 20 MG PO SCH (10:00)
[2017-03-27] MEDS ORDERED: NON-FORMULARY ITEM (Multivitamin [Multivitamins] 1 EACH) PO SCH (10:00)
[2017-03-27 12:48] VITALS: BP 140/68; PULSE 78; O2SAT 96
--- NOTE | 2017-03-27 12:53 | PCM.DS ---
Discharge Summary Date of Admission: 03/26/17 16:16 Admitting Physician: REBECCA GALVEZ Primary Care Provider: REBECCA GALVEZ Allergies Allergies doxycycline Allergy (Intermediate, Verified 11/11/16 17:09) Swelling Iodinated Contrast- Oral and IV Dye Allergy (Intermediate, Verified 11/11/16 17: 09) Hives hives, rash, diff breathing belladonna alkaloids [From B & O 16-A Supprette] Allergy (Mild, Verified 17:09) CHILD ALLERGY cephalexin monohydrate [From Keflex] Allergy (Mild, Verified 11/11/16 17:09) Hives furosemide [From Lasix] Allergy (Mild, Verified 11/11/16 17:09) HEART ARTHYM prochlorperazine edisylate [From Compazine] Allergy (Mild, Verified 11/11/16 17: 09) HALLUCINATIONS prochlorperazine maleate [From Compazine] Allergy (Mild, Verified 11/11/16 17:09 ) HALLUCINATIONS Sulfa (Sulfonamide Antibiotics) [Sulfa(Sulfonamide Antibiotics)] Allergy (Mild, Verified 11/11/16 17:09) Hives codeine [Codeine] Adverse Reaction (Mild, Verified 11/11/16 17:09) Headache hydrocodone bitartrate [From Vicodin] Adverse Reaction (Mild, Verified 11/11/16 17:09) Headache ketorolac tromethamine [From Toradol] Adverse Reaction (Mild, Verified 11/11/16 17:09) Vomiting metformin HCl [From Glucophage] Adverse Reaction (Mild, Verified 11/11/16 17:09) Vomiting naproxen [From Naprosyn] Adverse Reaction (Mild, Verified 11/11/16 17:09) Headache opium *RETIRED-06/05/12 [From B & O 16-A Supprette] Adverse Reaction (Mild, Verified 11/11/16 17:09) DON'T LIKE THEM phenytoin sodium [From Dilantin] Adverse Reaction (Mild, Verified 11/11/16 17:09 ) FEEL DRUNK phenytoin sodium extended [From Dilantin] Adverse Reaction (Mild, Verified 11/11 17:09) FEEL DRUNK Lactobacillus acidophilus [From Acidophilus] Adverse Reaction (Verified 17:09) diuretics Allergy (Intermediate, Uncoded 11/11/16 17:09) HEART ARRHYTHMIAS pt states she is allergic to all diuretics. pt has cardiac arrhythmias influenza vaccine Adverse Reaction (Uncoded 11/11/16 17:09) Hospital Summary - Hospital Course Hospital Course: Chief Complaint Diagnosis Pneumonia,ae copd Allergies Allergy/AdvReac Type Severity Reaction Status Date / Time doxycycline Allergy Intermediate Swelling Verified 11/11/16 17:09 Iodinated Contrast- Oral and Allergy Intermediate Hives Verified 11/11/16 17:09 IV Dye belladonna alkaloids Allergy Mild CHILD Verified 11/11/16 17:09 [From B & O 16-A Supprette] ALLERGY cephalexin monohydrate Allergy Mild Hives Verified 11/11/16 17:09 [From Keflex] furosemide [From Lasix] Allergy Mild HEART Verified 11/11/16 17:09 ARTHYM prochlorperazine edisylate Allergy Mild HALLUCINATI Verified 11/11/16 17:09 [From Compazine] ONS prochlorperazine maleate Allergy Mild HALLUCINATI Verified 11/11/16 17:09 [From Compazine] ONS Sulfa (Sulfonamide Allergy Mild Hives Verified 11/11/16 17:09 Antibiotics) [Sulfa(Sulfonamide Antibiotics)] codeine [Codeine] AdvReac Mild Headache Verified 11/11/16 17:09 hydrocodone bitartrate AdvReac Mild Headache Verified 11/11/16 17:09 [From Vicodin] ketorolac tromethamine AdvReac Mild Vomiting Verified 11/11/16 17:09 [From Toradol] metformin HCl AdvReac Mild Vomiting Verified 11/11/16 17:09 [From Glucophage] naproxen [From Naprosyn] AdvReac Mild Headache Verified 11/11/16 17:09 opium *RETIRED-06/05/12 AdvReac Mild DON'T LIKE Verified 11/11/16 17:09 [From B & O 16-A Supprette] THEM phenytoin sodium AdvReac Mild FEEL DRUNK Verified 11/11/16 17:09 [From Dilantin] phenytoin sodium extended AdvReac Mild FEEL DRUNK Verified 11/11/16 17:09 [From Dilantin] Lactobacillus acidophilus AdvReac Verified 11/11/16 17:09 [From Acidophilus] diuretics Allergy Intermediate HEART Uncoded 11/11/16 17:09 ARRHYTHMIAS influenza vaccine AdvReac Uncoded 11/11/16 17:09 Vital Signs (Last 24 hours) Temp Pulse Resp BP Pulse Ox 03/27/17 12:47 97.3 F 78 20 140/68 96 03/27/17 12:00 17 03/27/17 10:37 70 18 99 03/27/17 08:00 16 03/27/17 07:30 60 16 98 03/27/17 07:15 97.8 F 62 18 148/66 96 03/27/17 04:00 98.2 F 64 18 168/76 90 L 03/27/17 03:50 18 03/27/17 03:00 66 18 96 03/27/17 00:00 97.8 F 67 18 161/72 92 L 03/26/17 23:20 64 18 96 03/26/17 21:22 69 20 96 03/26/17 20:00 97.5 F 72 18 173/121 96 03/26/17 18:03 97.8 F 67 20 175/74 96 Home Medications Medication Instructions Recorded Confirmed Last Taken Type Acetaminophen 500 mg [Tylenol 1,000 mg PO HS 03/26/17 03/26/17 03/25/17 History Extra Strength 500 mg] Albuterol/Ipratropium 3ml Neb* 3 ml IH QID 03/26/17 03/26/17 03/26/17 History [DUONEB 0.5-3 MG/3 ml Neb] Lisinopril 20 mg [Zestril 20 10 mg PO BID 03/26/17 03/26/17 03/26/17 History MG] Multivitamin [Multivitamins] 1 each PO DAILY 03/26/17 03/26/17 03/26/17 History Nitroglycerin 0.4 mg Tablet 0.4 mg SL UD 03/26/17 03/26/17 Unknown History [Nitrostat 0.4 MG Tablet] Current Medications Generic Name Dose Route Start Last Admin Trade Name Freq PRN Reason Stop Dose Admin Acetaminophen 1,000 mg 03/27/17 22:00 Tylenol Extra Strength 500 Mg PO 04/26/17 21:59 HS [facility] Albuterol Sulfate 2 puff 03/27/17 06:49 Proventil Common Canister IH 04/26/17 06:48 QID PRN PRN SHORTNESS OF BREATH Albuterol/Ipratropium 3 ml 03/26/17 19:00 03/27/17 10:37 Duoneb 0.5-3 Mg/3 Ml Neb IH 04/25/17 18:59 3 ml Q4HRT ANDREW Administration Amlodipine Besylate 5 mg 03/27/17 10:00 03/27/17 09:56 Norvasc 5 Mg PO 04/26/17 09:59 5 mg DAILY ANDREW Administration Carvedilol 12.5 mg 03/26/17 22:00 03/27/17 09:57 Coreg 12.5 Mg PO 04/25/17 21:59 12.5 mg BID ANDREW Administration Enoxaparin Sodium 40 mg 03/27/17 10:00 03/27/17 09:56 Enoxaparin Sodium SQ 04/26/17 09:59 40 mg DAILY ANDREW Administration Fluoxetine HCl 20 mg 03/27/17 10:00 03/27/17 09:56 Prozac 20 Mg PO 04/26/17 09:59 20 mg DAILY ANDERW Administration Glimepiride 2 mg 03/27/17 10:00 03/27/17 09:57 Amaryl 2 Mg PO 04/26/17 09:59 2 mg DAILY ANDREW Administration Sodium Chloride 1,000 mls @ 100 mls/hr 03/26/17 16:45 03/27/17 07:59 Sodium Chloride 0.9% 1000 Ml IV 04/25/17 16:44 100 mls/hr .Q10H ANDREW Administration Levofloxacin/Dextrose 500 mg in 100 mls @ 100 mls/hr 03/27/17 22:00 Levofloxacin 500mg/100ml D5w IV 04/26/17 21:59 Q24H22 ANDREW Insulin Glargine 30 unit 03/27/17 19:00 Lantus Insulin SQ 04/26/17 18:59 1900 ANDREW Levothyroxine Sodium 25 mcg 03/27/17 10:00 03/27/17 09:57 Synthroid 25 Mcg PO 04/26/17 09:59 25 mcg DAILY ANDREW Administration Lisinopril 10 mg 03/27/17 10:00 03/27/17 09:57 Zestril 10 Mg PO 04/26/17 09:59 10 mg BID ANDREW Administration Loratadine 10 mg 03/27/17 10:00 03/27/17 09:56 Claritin 10 Mg PO 04/26/17 09:59 10 mg DAILY ANDREW Administration Metolazone 2.5 mg 03/27/17 07:00 Zaroxolyn 2.5 Mg PO 04/26/17 06:59 DAILY PRN PRN Multivitamins 1 tab 03/27/17 10:00 03/27/17 09:56 Theragran Multivitamin PO 04/26/17 09:59 1 tab DAILY ANDREW Administration Nitroglycerin 0.4 mg 03/27/17 07:00 Nitrostat 0.4 Mg Tablet SL 04/26/17 06:59 UD PRN CHEST PAIN Pantoprazole Sodium 40 mg 03/27/17 10:00 03/27/17 09:57 Protonix 40mg Tablet PO 04/26/17 09:59 40 mg DAILY ANDREW Administration Potassium Chloride 20 meq 03/26/17 22:00 03/27/17 09:56 Klor Con 10 Meq PO 04/25/17 21:59 20 meq BID ANDREW Administration Fluticasone/Salmeterol 2 puff 03/26/17 19:00 03/27/17 07:30 Advair Hfa 115/21 Common Canister* IH 04/25/17 18:59 2 puff BIDRT ANDREW Administration Discontinued Medications Generic Name Dose Route Start Last Admin Trade Name Freq PRN Reason Stop Dose Admin Acetaminophen 500 mg 03/26/17 22:00 03/26/17 21:17 Tylenol Extra Strength 500 Mg PO 04/25/17 21:59 500 mg HS ANDREW Administration Albuterol/Ipratropium 3 ml 03/27/17 07:00 Duoneb 0.5-3 Mg/3 Ml Neb IH 04/26/17 06:59 QIDRT ANDREW Aspirin 81 mg 03/27/17 10:00 03/27/17 09:56 Ecotrin 81 Mg PO 04/26/17 09:59 Not Given DAILY ANDREW Levofloxacin/Dextrose 500 mg in 100 mls @ 100 mls/hr 03/26/17 18:30 03/26/17 20:02 Levofloxacin 500mg/100ml D5w IV 04/25/17 18:29 100 mls/hr Q24H10 ANDREW Administration Insulin Glargine 30 unit 03/26/17 22:00 03/26/17 21:32 Lantus Insulin SQ 04/25/17 21:59 30 unit HS ANDREW Administration Lisinopril 20 mg 03/26/17 22:00 03/26/17 21:18 Zestril 20 Mg PO 04/25/17 21:59 20 mg BID ANDREW Administration Fluticasone/Salmeterol 1 each 03/27/17 07:00 Advair 250-50 Diskus 14 Dose IH 04/26/17 06:59 BIDRT ANDREW Intake & Output (Last 24 hours) 03/25/17 03/26/17 03/27/17 03/28/17 11:59 11:59 11:59 11:59 Intake Total 2116 Output Total 200 Balance 1916 Weight 104.7 kg Microbiology Results (Last 24 hours) 03/26/17 19:35 Blood - Pending 03/26/17 19:35 Blood Blood Culture - Pending 03/26/17 19:00 Blood - Pending 03/26/17 19:00 Blood Blood Culture - Pending Laboratory Results (Last 24 hours) 03/26/17 03/26/17 03/26/17 18:00 17:38 17:38 WBC RBC Hgb Hct MCV MCH MCHC RDW Plt Count MPV Sodium 139 Potassium 3.8 Chloride 104 Carbon Dioxide 26.9 Anion Gap 12.2 BUN 15 Creatinine 0.91 Estimated GFR > 60 Glucose 162 H Hemoglobin A1c 7.5 H Calcium 8.8 Total Bilirubin 0.40 AST 12 L ALT 14 Alkaline Phosphatase 60 Serum Total Protein 6.5 Albumin 3.2 L Influenza Type A Ag NEGATIVE Influenza Type B Ag NEGATIVE RSV (PCR) NEGATIVE 03/26/17 17:38 WBC 9.2 RBC 5.11 Hgb 14.7 Hct 44.8 MCV 87.7 MCH 28.8 MCHC 32.8 RDW 13.7 Plt Count 165 MPV 11.2 H Sodium Potassium Chloride Carbon Dioxide Anion Gap BUN Creatinine Estimated GFR Glucose Hemoglobin A1c Calcium Total Bilirubin AST ALT Alkaline Phosphatase Serum Total Protein Albumin Influenza Type A Ag Influenza Type B Ag RSV (PCR) Orders (Last 24 hours) Category Date Time Status Bedrest with BRP/BSC TOLERATED Activity 03/26/17 18:16 Active ACCUCHECK [Accucheck] ACHS Care 03/26/17 17:58 Active Admission/Status Order ROUTINE Care 03/26/17 16:16 Active IV Insertion ROUTINE Care 03/26/17 18:16 Completed Implement Pneumonia Pathway ROUTINE Care 03/26/17 18:16 Active Cardio-Pulmonary Rehab .as ordered Cons 03/26/17 17:29 Active Devulcanizer Loader/Discharge Plan ROUTINE Cons 03/26/17 18:56 Active 1800 Calorie ADA Diet 03/26/17 Dinner Active Nutritional Admission Screen once Diet 03/26/17 18:56 Completed CHEST 2 VIEWS (PA AND LAT) Urgent Exams 03/26/17 17:17 Completed CHEST WITHOUT CONTRAST [CT] Urgent Exams 03/26/17 18:30 Completed BLOOD CULTURE Urgent Lab 03/26/17 19:35 Received CBC Urgent Lab 03/26/17 17:38 Completed CMP Urgent Lab 03/26/17 17:38 Completed HEMOGLOBIN A1C Urgent Lab 03/26/17 18:00 Completed Respiratory Panel Urgent Lab 03/26/17 17:38 Completed Acetaminophen 500 mg [Tylenol Extra Strength 500 mg* Med 03/27/17 22:00 Active ] 1,000 mg PO HS Acetaminophen 500 mg [Tylenol Extra Strength 500 mg* Med 03/26/17 22:00 Discontinued ] 500 mg PO HS Albuterol Common Canister [Proventil Common Canister Med 03/27/17 06:49 Active ] 2 puff IH QID PRN PRN Albuterol/Ipratropium 3ml Neb* [DUONEB 0.5-3 MG/3 ml Med 03/26/17 19:00 Active Neb] 3 ml IH Q4HRT Albuterol/Ipratropium 3ml Neb* [DUONEB 0.5-3 MG/3 ml Med 03/27/17 07:00 Discontinued Neb] 3 ml IH QIDRT Amlodipine Besylate 5 mg [Norvasc 5 mg] Med 03/27/17 10:00 Active 5 mg PO DAILY Aspirin EC 81 mg [Ecotrin 81 mg] Med 03/27/17 10:00 Discontinued 81 mg PO DAILY Carvedilol 12.5 mg [Coreg 12.5 mg] Med 03/26/17 22:00 Active 12.5 mg PO BID Enoxaparin Sodium [Enoxaparin Sodium] Med 03/27/17 10:00 Active 40 mg SQ DAILY Fluoxetine HCl 20 mg [Prozac 20 MG] Med 03/27/17 10:00 Active 20 mg PO DAILY Fluticasone/Salmeterol 115/21 [Advair Hfa 115/21 Common Med 03/26/17 19:00 Active canister*] 2 puff IH BIDRT Fluticasone/Salmeterol Disc [Advair 250-50 Diskus 14 Med 03/27/17 07:00 Discontinued Dose] 1 each IH BIDRT Glimepiride 2 mg [Amaryl 2 MG] Med 03/27/17 10:00 Active 2 mg PO DAILY Insulin Glargine [Lantus Insulin] Med 03/27/17 19:00 Active 30 unit SQ 1900 Insulin Glargine [Lantus Insulin] Med 03/26/17 22:00 Discontinued 30 unit SQ HS Levofloxacin [Levofloxacin 500MG/100ML D5W] Med 03/26/17 18:30 Discontinued 500 mg in 100 ml IV Q24H10 Levofloxacin [Levofloxacin 500MG/100ML D5W] Med 03/27/17 22:00 Active 500 mg in 100 ml IV Q24H22 Levothyroxine Sodium 25 Mcg [Synthroid 25 Mcg] Med 03/27/17 10:00 Active 25 mcg PO DAILY Lisinopril 10 mg [Zestril 10 MG] Med 03/27/17 10:00 Active 10 mg PO BID Lisinopril 20 mg [Zestril 20 MG] Med 03/26/17 22:00 Discontinued 20 mg PO BID Loratadine 10 mg [Claritin 10 mg] Med 03/27/17 10:00 Active 10 mg PO DAILY Metolazone 2.5 mg [Zaroxolyn 2.5 MG] Med 03/27/17 07:00 Active 2.5 mg PO DAILY PRN PRN Multivitamins,Therapeutic Tab* [Theragran Multivitamin* Med 03/27/17 10:00 Active ] 1 tab PO DAILY NaCl 0.9% 1000 ml [Sodium Chloride 0.9% 1000 ML] 1,000 Med 03/26/17 16:45 Active ml IV 100 mls/hr Nitroglycerin 0.4 mg Tablet [Nitrostat 0.4 MG Tablet Med 03/27/17 07:00 Active ] 0.4 mg SL UD PRN PANTOPRAZOLE 40 mg Tablet [Protonix 40MG Tablet] Med 03/27/17 10:00 Active 40 mg PO DAILY Potassium Chloride 10 Meq Tab* [Klor Con 10 MEQ] Med 03/26/17 22:00 Active 20 meq PO BID RT Screen per Nursing Assess ONCE RT 03/26/17 18:56 Completed Respiratory MDI BID RT 03/26/17 19:00 Active Respiratory Nebulizer Q4H RT 03/26/17 19:00 Active Respiratory Therapy Consult ROUTINE RT 03/26/17 18:30 Completed - Vitals & Intake/Output Vital Signs: Vital Signs Temperature 97.3 F 03/27/17 12:47 Pulse Rate 78 03/27/17 12:47 Respiratory Rate 20 03/27/17 12:47 Blood Pressure 140/68 03/27/17 12:47 O2 Sat by Pulse Oximetry 96 03/27/17 12:47 Intake & Output: Intake & Output 03/25/17 03/26/17 03/27/17 03/28/17 11:59 11:59 11:59 11:59 Intake Total 2116 Output Total 200 Balance 1916 Weight 104.7 kg - Lab Result Diagrams: 03/26/17 17:38 03/26/17 17:38 Lab Results-Last 24 Hrs: Accuchecks Date 03/27/17 Date 03/27/17 Date 03/26/17 Time 10:57 Time 08:00 Time 21:35 Accucheck Value: 195 Accucheck Value: 109 Accucheck Value: 186 Lab Results-Last 24 Hours 03/26/17 03/26/17 03/26/17 Range/Units 17:38 17:38 17:38 WBC 9.2 (4.0-10.5) K/mm3 RBC 5.11 (4.1-5.4) M/mm3 Hgb 14.7 (12.0-16.0) gm/dl Hct 44.8 (35-47) % MCV 87.7 (78-100) fl MCH 28.8 (26-32) pg MCHC 32.8 (32-36) g/dl RDW 13.7 (11.5-14.0) % Plt Count 165 (150-450) K/mm3 MPV 11.2 H (6-9.5) fl Sodium 139 (136-145) mEq/L Potassium 3.8 (3.5-5.1) mEq/L Chloride 104 (98-107) mEq/L Carbon Dioxide 26.9 (21-32) mEq/L Anion Gap 12.2 (5-15) MEQ/L BUN 15 (9-20) mg/dL Creatinine 0.91 (0.55-1.30) mg/dl Estimated GFR > 60 ML/MIN Glucose 162 H (70-110) MG/DL Hemoglobin A1c (4.5-6.2) Calcium 8.8 (8.5-10.1) mg/dL Total Bilirubin 0.40 (0.2-1.0) mg/dL AST 12 L (15-37) U/L ALT 14 (12-78) U/L Alkaline Phosphatase 60 (46-116) U/L Serum Total Protein 6.5 (6.4-8.2) gm/dL Albumin 3.2 L (3.4-5.0) g/dL Influenza Type A Ag NEGATIVE (NEGATIVE) Influenza Type B Ag NEGATIVE (NEGATIVE) RSV (PCR) NEGATIVE (Negative) 03/26/17 Range/Units 18:00 WBC (4.0-10.5) K/mm3 RBC (4.1-5.4) M/mm3 Hgb (12.0-16.0) gm/dl Hct (35-47) % MCV (78-100) fl MCH (26-32) pg MCHC (32-36) g/dl RDW (11.5-14.0) % Plt Count (150-450) K/mm3 MPV (6-9.5) fl Sodium (136-145) mEq/L Potassium (3.5-5.1) mEq/L Chloride (98-107) mEq/L Carbon Dioxide (21-32) mEq/L Anion Gap (5-15) MEQ/L BUN (9-20) mg/dL Creatinine (0.55-1.30) mg/dl Estimated GFR ML/MIN Glucose (70-110) MG/DL Hemoglobin A1c 7.5 H (4.5-6.2) Calcium (8.5-10.1) mg/dL Total Bilirubin (0.2-1.0) mg/dL AST (15-37) U/L ALT (12-78) U/L Alkaline Phosphatase (46-116) U/L Serum Total Protein (6.4-8.2) gm/dL Albumin (3.4-5.0) g/dL Influenza Type A Ag (NEGATIVE) Influenza Type B Ag (NEGATIVE) RSV (PCR) (Negative) Micro Results-Entire Visit: Accuchecks Date 03/27/17 Date 03/27/17 Date 03/26/17 Time 10:57 Time 08:00 Time 21:35 Accucheck Value: 195 Accucheck Value: 109 Accucheck Value: 186 - Radiology Exams Ordered Rad Exams-Entire Visit: Radiology Procedures Category Date Time Status CHEST 2 VIEWS (PA AND LAT) Urgent Exams 03/26/17 17:17 Completed CHEST WITHOUT CONTRAST [CT] Urgent Exams 03/26/17 18:30 Completed Impression: 1. New left upper lobe/right base pulmonary masses and mediastinal/right hilar lymphadenopathy worrisome for metastasis. 2. Stable postsurgical changes, fatty liver, splenomegaly, and evidence for old granulomatous disease - Procedures and Test Procedures and Tests throughout Hospitalization: Therapy Orders & Screens 03/26/17 18:30 Respiratory Therapy Consult ROUTINE Comment: Reason For Exam: Diagnosis: Pneumonia,ae copd 03/26/17 18:56 RT Screen per Nursing Assess ONCE Comment: Protocol Order Physician Instructions: Greater than 3 points order RT Admission Screen Reason For Exam: Triggered on Admission Diagnosis: Pneumonia,ae copd Diagnosis: Pneumonia,ae copd Pneumonia: Yes Home O2: No Asthma: Yes CHF: Yes Home CPAP/BIPAP: No Home Nebs/MDI: Yes Total Points: 15 03/26/17 19:00 Respiratory MDI BID Comment: Diagnosis: Pneumonia,ae copd Respiratory Nebulizer Q4H Comment: Diagnosis: Pneumonia,ae copd Discharge Exam General Appearance: no apparent distress, alert Neurologic Exam: alert, oriented x 3, cooperative, normal mood/affect, nml cerebellar function, sensation nml, No motor deficits Skin Exam: normal color, warm, dry Eye Exam: PERRL, EOMI, eyes nml inspection Ears, Nose, Throat Exam: normal ENT inspection, pharynx normal, moist mucous membranes Neck Exam: normal inspection, non-tender, supple, full range of motion Respiratory Exam: diminished breath sounds, prolonged expirations, crackles/ rales, rhonchi, No respiratory distress Cardiovascular Exam: regular rate/rhythm, normal heart sounds Gastrointestinal/Abdomen Exam: soft, No tenderness, No mass Extremity Exam: normal inspection, normal range of motion Back Exam: normal inspection, normal range of motion, No CVA tenderness, No vertebral tenderness Pelvic Exam: deferred Rectal Exam: deferred Final Diagnosis/Problem List - Final Discharge Diagnosis/Problem (1) Pneumonia Current Visit: Yes Status: Acute Assessment & Plan: Chief Complaint Diagnosis Pneumonia,ae copd Allergies Allergy/AdvReac Type Severity Reaction Status Date / Time doxycycline Allergy Intermediate Swelling Verified 11/11/16 17:09 Iodinated Contrast- Oral and Allergy Intermediate Hives Verified 11/11/16 17:09 IV Dye belladonna alkaloids Allergy Mild CHILD Verified 11/11/16 17:09 [From B & O 16-A Supprette] ALLERGY cephalexin monohydrate Allergy Mild Hives Verified 11/11/16 17:09 [From Keflex] furosemide [From Lasix] Allergy Mild HEART Verified 11/11/16 17:09 ARTHYM prochlorperazine edisylate Allergy Mild HALLUCINATI Verified 11/11/16 17:09 [From Compazine] ONS prochlorperazine maleate Allergy Mild HALLUCINATI Verified 11/11/16 17:09 [From Compazine] ONS Sulfa (Sulfonamide Allergy Mild Hives Verified 11/11/16 17:09 Antibiotics) [Sulfa(Sulfonamide Antibiotics)] codeine [Codeine] AdvReac Mild Headache Verified 11/11/16 17:09 hydrocodone bitartrate AdvReac Mild Headache Verified 11/11/16 17:09 [From Vicodin] ketorolac tromethamine AdvReac Mild Vomiting Verified 11/11/16 17:09 [From Toradol] metformin HCl AdvReac Mild Vomiting Verified 11/11/16 17:09 [From Glucophage] naproxen [From Naprosyn] AdvReac Mild Headache Verified 11/11/16 17:09 opium *RETIRED-06/05/12 AdvReac Mild DON'T LIKE Verified 11/11/16 17:09 [From B & O 16-A Supprette] THEM phenytoin sodium AdvReac Mild FEEL DRUNK Verified 11/11/16 17:09 [From Dilantin] phenytoin sodium extended AdvReac Mild FEEL DRUNK Verified 11/11/16 17:09 [From Dilantin] Lactobacillus acidophilus AdvReac Verified 11/11/16 17:09 [From Acidophilus] diuretics Allergy Intermediate HEART Uncoded 11/11/16 17:09 ARRHYTHMIAS influenza vaccine AdvReac Uncoded 11/11/16 17:09 Vital Signs (Last 24 hours) Temp Pulse Resp BP Pulse Ox 03/27/17 12:47 97.3 F 78 20 140/68 96 03/27/17 12:00 17 03/27/17 10:37 70 18 99 03/27/17 08:00 16 03/27/17 07:30 60 16 98 03/27/17 07:15 97.8 F 62 18 148/66 96 03/27/17 04:00 98.2 F 64 18 168/76 90 L 03/27/17 03:50 18 03/27/17 03:00 66 18 96 03/27/17 00:00 97.8 F 67 18 161/72 92 L 03/26/17 23:20 64 18 96 03/26/17 21:22 69 20 96 03/26/17 20:00 97.5 F 72 18 173/121 96 03/26/17 18:03 97.8 F 67 20 175/74 96 Home Medications Medication Instructions Recorded Confirmed Last Taken Type Acetaminophen 500 mg [Tylenol 1,000 mg PO HS 03/26/17 03/26/17 03/25/17 History Extra Strength 500 mg] Albuterol/Ipratropium 3ml Neb* 3 ml IH QID 03/26/17 03/26/17 03/26/17 History [DUONEB 0.5-3 MG/3 ml Neb] Lisinopril 20 mg [Zestril 20 10 mg PO BID 03/26/17 03/26/17 03/26/17 History MG] Multivitamin [Multivitamins] 1 each PO DAILY 03/26/17 03/26/17 03/26/17 History Nitroglycerin 0.4 mg Tablet 0.4 mg SL UD 03/26/17 03/26/17 Unknown History [Nitrostat 0.4 MG Tablet] Current Medications Generic Name Dose Route Start Last Admin Trade Name Freq PRN Reason Stop Dose Admin Acetaminophen 1,000 mg 03/27/17 22:00 Tylenol Extra Strength 500 Mg PO 04/26/17 21:59 HS ANDREW Albuterol Sulfate 2 puff 03/27/17 06:49 Proventil Common Canister IH 04/26/17 06:48 QID PRN PRN SHORTNESS OF BREATH Albuterol/Ipratropium 3 ml 03/26/17 19:00 03/27/17 10:37 Duoneb 0.5-3 Mg/3 Ml Neb IH 04/25/17 18:59 3 ml Q4HRT ANDREW Administration Amlodipine Besylate 5 mg 03/27/17 10:00 03/27/17 09:56 Norvasc 5 Mg PO 04/26/17 09:59 5 mg DAILY ANDREW Administration Carvedilol 12.5 mg 03/26/17 22:00 03/27/17 09:57 Coreg 12.5 Mg PO 04/25/17 21:59 12.5 mg BID ANDREW Administration Enoxaparin Sodium 40 mg 03/27/17 10:00 03/27/17 09:56 Enoxaparin Sodium SQ 04/26/17 09:59 40 mg DAILY ANDREW Administration Fluoxetine HCl 20 mg 03/27/17 10:00 03/27/17 09:56 Prozac 20 Mg PO 04/26/17 09:59 20 mg DAILY ANDREW Administration Glimepiride 2 mg 03/27/17 10:00 03/27/17 09:57 Amaryl 2 Mg PO 04/26/17 09:59 2 mg DAILY ANDREW Administration Sodium Chloride 1,000 mls @ 100 mls/hr 03/26/17 16:45 03/27/17 07:59 Sodium Chloride 0.9% 1000 Ml IV 04/25/17 16:44 100 mls/hr .Q10H ANDREW Administration Levofloxacin/Dextrose 500 mg in 100 mls @ 100 mls/hr 03/27/17 22:00 Levofloxacin 500mg/100ml D5w IV 04/26/17 21:59 Q24H22 ANDREW Insulin Glargine 30 unit 03/27/17 19:00 Lantus Insulin SQ 04/26/17 18:59 1900 ANDREW Levothyroxine Sodium 25 mcg 03/27/17 10:00 03/27/17 09:57 Synthroid 25 Mcg PO 04/26/17 09:59 25 mcg DAILY ANDREW Administration Lisinopril 10 mg 03/27/17 10:00 03/27/17 09:57 Zestril 10 Mg PO 04/26/17 09:59 10 mg BID ANDREW Administration Loratadine 10 mg 03/27/17 10:00 03/27/17 09:56 Claritin 10 Mg PO 04/26/17 09:59 10 mg DAILY ANDREW Administration Metolazone 2.5 mg 03/27/17 07:00 Zaroxolyn 2.5 Mg PO 04/26/17 06:59 DAILY PRN PRN Multivitamins 1 tab 03/27/17 10:00 03/27/17 09:56 Theragran Multivitamin PO 04/26/17 09:59 1 tab DAILY ANDREW Administration Nitroglycerin 0.4 mg 03/27/17 07:00 Nitrostat 0.4 Mg Tablet SL 04/26/17 06:59 UD PRN CHEST PAIN Pantoprazole Sodium 40 mg 03/27/17 10:00 03/27/17 09:57 Protonix 40mg Tablet PO 04/26/17 09:59 40 mg DAILY ANDREW Administration Potassium Chloride 20 meq 03/26/17 22:00 03/27/17 09:56 Klor Con 10 Meq PO 04/25/17 21:59 20 meq BID ANDREW Administration Fluticasone/Salmeterol 2 puff 03/26/17 19:00 03/27/17 07:30 Advair Hfa 115/21 Common Canister* IH 04/25/17 18:59 2 puff BIDRT ANDREW Administration Discontinued Medications Generic Name Dose Route Start Last Admin Trade Name [place] PRN Reason Stop Dose Admin Acetaminophen 500 mg 03/26/17 22:00 03/26/17 21:17 Tylenol Extra Strength 500 Mg PO 04/25/17 21:59 500 mg HS ANDREW Administration Albuterol/Ipratropium 3 ml 03/27/17 07:00 Duoneb 0.5-3 Mg/3 Ml Neb IH 04/26/17 06:59 QIDRT ANDREW Aspirin 81 mg 03/27/17 10:00 03/27/17 09:56 Ecotrin 81 Mg PO 04/26/17 09:59 Not Given DAILY ANDREW Levofloxacin/Dextrose 500 mg in 100 mls @ 100 mls/hr 03/26/17 18:30 03/26/17 20:02 Levofloxacin 500mg/100ml D5w IV 04/25/17 18:29 100 mls/hr Q24H10 ANDREW Administration Insulin Glargine 30 unit 03/26/17 22:00 03/26/17 21:32 Lantus Insulin SQ 04/25/17 21:59 30 unit HS ANDREW Administration Lisinopril 20 mg 03/26/17 22:00 03/26/17 21:18 Zestril 20 Mg PO 04/25/17 21:59 20 mg BID ANDREW Administration Fluticasone/Salmeterol 1 each 03/27/17 07:00 Advair 250-50 Diskus 14 Dose IH 04/26/17 06:59 BIDRT ANDREW Intake & Output (Last 24 hours) 03/25/17 03/26/17 03/27/17 03/28/17 11:59 11:59 11:59 11:59 Intake Total 2116 Output Total 200 Balance 1916 Weight 104.7 kg Microbiology Results (Last 24 hours) 03/26/17 19:35 Blood - Pending 03/26/17 19:35 Blood Blood Culture - Pending 03/26/17 19:00 Blood - Pending 03/26/17 19:00 Blood Blood Culture - Pending Laboratory Results (Last 24 hours) 03/26/17 03/26/17 03/26/17 18:00 17:38 17:38 WBC RBC Hgb Hct MCV MCH MCHC RDW Plt Count MPV Sodium 139 Potassium 3.8 Chloride 104 Carbon Dioxide 26.9 Anion Gap 12.2 BUN 15 Creatinine 0.91 Estimated GFR > 60 Glucose 162 H Hemoglobin A1c 7.5 H Calcium 8.8 Total Bilirubin 0.40 AST 12 L ALT 14 Alkaline Phosphatase 60 Serum Total Protein 6.5 Albumin 3.2 L Influenza Type A Ag NEGATIVE Influenza Type B Ag NEGATIVE RSV (PCR) NEGATIVE 03/26/17 17:38 WBC 9.2 RBC 5.11 Hgb 14.7 Hct 44.8 MCV 87.7 MCH 28.8 MCHC 32.8 RDW 13.7 Plt Count 165 MPV 11.2 H Sodium Potassium Chloride Carbon Dioxide Anion Gap BUN Creatinine Estimated GFR Glucose Hemoglobin A1c Calcium Total Bilirubin AST ALT Alkaline Phosphatase Serum Total Protein Albumin Influenza Type A Ag Influenza Type B Ag RSV (PCR) Orders (Last 24 hours) Category Date Time Status Bedrest with BRP/BSC TOLERATED Activity 03/26/17 18:16 Active ACCUCHECK [Accucheck] ACHS Care 03/26/17 17:58 Active Admission/Status Order ROUTINE Care 03/26/17 16:16 Active IV Insertion ROUTINE Care 03/26/17 18:16 Completed Implement Pneumonia Pathway ROUTINE Care 03/26/17 18:16 Active Cardio-Pulmonary Rehab .as ordered Cons 03/26/17 17:29 Active Devulcanizer Loader/Discharge Plan ROUTINE Cons 03/26/17 18:56 Active 1800 Calorie ADA Diet 03/26/17 Dinner Active Nutritional Admission Screen once Diet 03/26/17 18:56 Completed CHEST 2 VIEWS (PA AND LAT) Urgent Exams 03/26/17 17:17 Completed CHEST WITHOUT CONTRAST [CT] Urgent Exams 03/26/17 18:30 Completed BLOOD CULTURE Urgent Lab 03/26/17 19:35 Received CBC Urgent Lab 03/26/17 17:38 Completed CMP Urgent Lab 03/26/17 17:38 Completed HEMOGLOBIN A1C Urgent Lab 03/26/17 18:00 Completed Respiratory Panel Urgent Lab 03/26/17 17:38 Completed Acetaminophen 500 mg [Tylenol Extra Strength 500 mg* Med 03/27/17 22:00 Active ] 1,000 mg PO HS Acetaminophen 500 mg [Tylenol Extra Strength 500 mg* Med 03/26/17 22:00 Discontinued ] 500 mg PO HS Albuterol Common Canister [Proventil Common Canister Med 03/27/17 06:49 Active ] 2 puff IH QID PRN PRN Albuterol/Ipratropium 3ml Neb* [DUONEB 0.5-3 MG/3 ml Med 03/26/17 19:00 Active Neb] 3 ml IH Q4HRT Albuterol/Ipratropium 3ml Neb* [DUONEB 0.5-3 MG/3 ml Med 03/27/17 07:00 Discontinued Neb] 3 ml IH QIDRT Amlodipine Besylate 5 mg [Norvasc 5 mg] Med 03/27/17 10:00 Active 5 mg PO DAILY Aspirin EC 81 mg [Ecotrin 81 mg] Med 03/27/17 10:00 Discontinued 81 mg PO DAILY Carvedilol 12.5 mg [Coreg 12.5 mg] Med 03/26/17 22:00 Active 12.5 mg PO BID Enoxaparin Sodium [Enoxaparin Sodium] Med 03/27/17 10:00 Active 40 mg SQ DAILY Fluoxetine HCl 20 mg [Prozac 20 MG] Med 03/27/17 10:00 Active 20 mg PO DAILY Fluticasone/Salmeterol 115/21 [Advair Hfa 115/21 Common Med 03/26/17 19:00 Active canister*] 2 puff IH BIDRT Fluticasone/Salmeterol Disc [Advair 250-50 Diskus 14 Med 03/27/17 07:00 Discontinued Dose] 1 each IH BIDRT Glimepiride 2 mg [Amaryl 2 MG] Med 03/27/17 10:00 Active 2 mg PO DAILY Insulin Glargine [Lantus Insulin] Med 03/27/17 19:00 Active 30 unit SQ 1900 Insulin Glargine [Lantus Insulin] Med 03/26/17 22:00 Discontinued 30 unit SQ HS Levofloxacin [Levofloxacin 500MG/100ML D5W] Med 03/26/17 18:30 Discontinued 500 mg in 100 ml IV Q24H10 Levofloxacin [Levofloxacin 500MG/100ML D5W] Med 03/27/17 22:00 Active 500 mg in 100 ml IV Q24H22 Levothyroxine Sodium 25 Mcg [Synthroid 25 Mcg] Med 03/27/17 10:00 Active 25 mcg PO DAILY Lisinopril 10 mg [Zestril 10 MG] Med 03/27/17 10:00 Active 10 mg PO BID Lisinopril 20 mg [Zestril 20 MG] Med 03/26/17 22:00 Discontinued 20 mg PO BID Loratadine 10 mg [Claritin 10 mg] Med 03/27/17 10:00 Active 10 mg PO DAILY Metolazone 2.5 mg [Zaroxolyn 2.5 MG] Med 03/27/17 07:00 Active 2.5 mg PO DAILY PRN PRN Multivitamins,Therapeutic Tab* [Theragran Multivitamin* Med 03/27/17 10:00 Active ] 1 tab PO DAILY NaCl 0.9% 1000 ml [Sodium Chloride 0.9% 1000 ML] 1,000 Med 03/26/17 16:45 Active ml IV 100 mls/hr Nitroglycerin 0.4 mg Tablet [Nitrostat 0.4 MG Tablet Med 03/27/17 07:00 Active ] 0.4 mg SL UD PRN PANTOPRAZOLE 40 mg Tablet [Protonix 40MG Tablet] Med 03/27/17 10:00 Active 40 mg PO DAILY Potassium Chloride 10 Meq Tab* [Klor Con 10 MEQ] Med 03/26/17 22:00 Active 20 meq PO BID RT Screen per Nursing Assess ONCE RT 03/26/17 18:56 Completed Respiratory MDI BID RT 03/26/17 19:00 Active Respiratory Nebulizer Q4H RT 03/26/17 19:00 Active Respiratory Therapy Consult ROUTINE RT 03/26/17 18:30 Completed (2) Lung mass Current Visit: Yes Status: Acute Assessment & Plan: will transfer patient to [facility] for further high skilled care (3) Bronchitis Current Visit: Yes Status: Acute - Discharge Discharge Date: 03/27/17 [facility]position[facility] Condition: Stable Prescriptions: No Action Glimepiride 2 mg [Amaryl 2 MG] 2 mg PO DAILY Fluoxetine HCl 20 mg [Prozac 20 MG] 20 mg PO DAILY Carvedilol 12.5 mg [Coreg 12.5 mg] 12.5 mg PO BID Levothyroxine Sodium 25 Mcg [Synthroid 25 Mcg] 25 mcg PO DAILY Lutein 10 mg PO DAILY Loratadine 10 mg [Claritin 10 mg] 10 mg PO DAILY Metolazone 2.5 mg [Zaroxolyn 2.5 MG] 2.5 mg PO DAILY PRN PRN PRN Reason: edema Insulin Detemir [Levemir] 30 unit SQ DAILY Albuterol Sulfate [Ventolin Hfa] 8 gm IH QIDPRN PRN PRN Reason: sob Potassium Chloride 10 Meq Tab* [Klor Con 10 MEQ] 20 meq PO BID Omeprazole 20 MG [Prilosec 20 mg] 20 mg PO DAILY Fluticasone/Salmeterol [Advair 250-50 Diskus] 1 each IH BID Amlodipine Besylate 5 mg [Norvasc 5 mg] 5 mg PO DAILY Acetaminophen 500 mg [Tylenol Extra Strength 500 mg] 1,000 mg PO HS Albuterol/Ipratropium 3ml Neb* [DUONEB 0.5-3 MG/3 ml Neb] 3 ml IH QID Multivitamin [Multivitamins] 1 each PO DAILY Nitroglycerin 0.4 mg Tablet [Nitrostat 0.4 MG Tablet] 0.4 mg SL UD Lisinopril 20 mg [Zestril 20 MG] 10 mg PO BID Follow up with: REBECCA GALVEZ MD [Primary Care Provider] - 1 Week
[2017-03-27] MEDS ORDERED: Lantus Insulin SQ SCH (19:00)
[2017-03-27] MEDS ORDERED: Levofloxacin 500MG/100ML D5W 500 MG/100 ML BAG IV SCH (22:00)
[2017-03-27] MEDS ORDERED: TYLENOL EXTRA STRENGTH 500 MG PO SCH (22:00)
== END 2017-03-27 13:45 | disposition short-term general hospital (02) ==
LOC: MED SURG 16:16
PROVIDERS: ADMIT General Practice; ATTEND General Practice
DX: J18.9 Pneumonia, unspecified organism (principal); R91.8 Other nonspecific abnormal finding of lung field; J40 Bronchitis, not specified as acute or chronic; E11.9 Type 2 diabetes mellitus without complications; M19.90 Unspecified osteoarthritis, unspecified site; F32.9 Major depressive disorder, single episode, unspecified; E78.00 Pure hypercholesterolemia, unspecified; J44.1 Chronic obstructive pulmonary disease with (acute) exacerbation; G47.30 Sleep apnea, unspecified; Z87.891 Personal history of nicotine dependence; Z79.899 Other long term (current) drug therapy
CPT/HCPCS: 36415; 71046; 71250; 80053; 82962; 83036; 85027; 87040; 87631; 94150; 94640; 94760; G0378; J1650; J1956; A9270-GY

== ENCOUNTER 2017-06-06 01:18 | Emergency (ER) | payer MEDICARE, OTHER ==
[2017-06-06] MEDS ORDERED: Pepcid 20 MG VIAL IV ONE ×2 (01:49→01:54)
[2017-06-06] MEDS ORDERED: MORPHINE SULFATE 2 MG INJ IV ONE (01:49)
[2017-06-06] MEDS ORDERED: Zofran 4 MG/2 ML VIAL IV ONE (01:49)
[2017-06-06] MEDS ORDERED: Zofran 4 MG/2 ML VIAL ONE (01:54)
[2017-06-06] MEDS ORDERED: MORPHINE SULFATE 2 MG INJ ONE ×2 (01:54→03:41)
--- NOTE | 2017-06-06 01:57 | ERPHSYRPT ---
- History of Present Illness Time Seen by Provider: 06/06/17 01:51 Historian: patient, family Exam Limitations: no limitations Patient Subjective Stated Complaint: pt states she has been having rt sided abd pain and nausea. states she took her keytruda on sunday and was told it could cause abd pain and liver problems Triage Nursing Assessment: pt alert and oriented, asnwers questions approp. pt ambulatre from wheelchair to stretcher in room, slow steady gait noted. respirations nonlabored with lungs cta. swelling noted to bilat lower ext, worse on lt- pt states normal for her. abd soft, tender to rt side with light palpation. hypo bowel sounds. Physician History: patient was recently diagnosed with small cell lung CA in 03/2017. Patient had 10 radiation doses and is currently taking iminosuppressant therapy. patient presents with right upper abdominal pain that began at approximately 8 PM last night, while she was lying. The patient did have some sausage and sauerkraut for dinner. Patient described pain as sharp, constant, and right upper quadrant without radiation and associated with nausea/dry heaving. Patient denies any vomiting, fever, cough, chest pain, shortness of breath, back pain or any urinary symptoms. Patient did have one episode of diarrhea, which was normal for her from taking her meds. Patient denies taking any meds for her discomfort. Denies any activity that worsens or improve symptoms. Timing/Duration: yesterday (8PM), constant, sudden, worse Activities at Onset: rest Quality: sharpness Abdominal Pain Onset Location: RUQ Pain Radiation: no radiation Severity of Pain-Max: moderate Severity of Pain-Current: moderate Modifying Factors: Improves With: nothing Associated Symptoms: nausea, weakness, No diaphoresis, No diarrhea, No fever/ chills, No headache, No heartburn, No loss of appetite, No neck pain, No shortness of breath, No syncope, No vomiting Previous symptoms: same symptoms as today Allergies/Adverse Reactions: doxycycline Allergy (Intermediate, Verified 06/06/17 01:52) Swelling Iodinated Contrast- Oral and IV Dye Allergy (Intermediate, Verified 06/06/17 01: 52) Hives hives, rash, diff breathing belladonna alkaloids [From B & O 16-A Supprette] Allergy (Mild, Verified 01:52) CHILD ALLERGY cephalexin monohydrate [From Keflex] Allergy (Mild, Verified 06/06/17 01:52) Hives furosemide [From Lasix] Allergy (Mild, Verified 06/06/17 01:52) HEART ARTHYM prochlorperazine edisylate [From Compazine] Allergy (Mild, Verified 06/06/17 01: 52) HALLUCINATIONS prochlorperazine maleate [From Compazine] Allergy (Mild, Verified 06/06/17 01:52 ) HALLUCINATIONS Sulfa (Sulfonamide Antibiotics) [Sulfa(Sulfonamide Antibiotics)] Allergy (Mild, Verified 06/06/17 01:52) Hives codeine [Codeine] Adverse Reaction (Mild, Verified 06/06/17 01:52) Headache hydrocodone bitartrate [From Vicodin] Adverse Reaction (Mild, Verified 06/06/17 01:52) Headache ketorolac tromethamine [From Toradol] Adverse Reaction (Mild, Verified 06/06/17 01:52) Vomiting metformin HCl [From Glucophage] Adverse Reaction (Mild, Verified 06/06/17 01:52) Vomiting naproxen [From Naprosyn] Adverse Reaction (Mild, Verified 06/06/17 01:52) Headache opium *RETIRED-06/05/12 [From B & O 16-A Supprette] Adverse Reaction (Mild, Verified 11/11/16 17:09) DON'T LIKE THEM phenytoin sodium [From Dilantin] Adverse Reaction (Mild, Verified 06/06/17 01:52 ) FEEL DRUNK phenytoin sodium extended [From Dilantin] Adverse Reaction (Mild, Verified 06/06 01:52) FEEL DRUNK Lactobacillus acidophilus [From Acidophilus] Adverse Reaction (Verified 01:52) diuretics Allergy (Intermediate, Uncoded 06/06/17 01:52) HEART ARRHYTHMIAS pt states she is allergic to all diuretics. pt has cardiac arrhythmias influenza vaccine Adverse Reaction (Uncoded 06/06/17 01:52) Home Medications: Amlodipine Besylate 5 mg [Norvasc 5 mg] 2.5 mg PO DAILY 10/14/16 [History] Carvedilol 12.5 mg [Coreg 12.5 mg] 12.5 mg PO BID 10/14/16 [History] Fluoxetine HCl 20 mg [Prozac 20 MG] 20 mg PO DAILY 10/14/16 [History] Fluticasone/Salmeterol [Advair 250-50 Diskus] 1 each IH DAILY 10/14/16 [History] Insulin Detemir [Levemir] 45 unit SQ DAILY 10/14/16 [History] Levothyroxine Sodium 25 Mcg [Synthroid 25 Mcg] 25 mcg PO DAILY 10/14/16 [ History] Loratadine 10 mg [Claritin 10 mg] 10 mg PO DAILY 10/14/16 [History] Lutein 10 mg PO DAILY 10/14/16 [History] Metolazone 2.5 mg [Zaroxolyn 2.5 MG] 2.5 mg PO DAILY PRN PRN 10/14/16 [ History] Omeprazole 20 MG [Prilosec 20 mg] 20 mg PO DAILY 10/14/16 [History] Potassium Chloride 10 Meq Tab* [Klor Con 10 MEQ] 20 meq PO BID 10/14/16 [ History] Lisinopril 20 mg [Zestril 20 MG] 10 mg PO BID 03/26/17 [History] Multivitamin [Multivitamins] 1 each PO DAILY 03/26/17 [History] Nitroglycerin 0.4 mg Tablet [Nitrostat 0.4 MG Tablet] 0.4 mg SL UD [History] Brevitol 1 neb .ROUTE 06/06/17 [History] Fluticasone Propionate [Flonase Allergy Relief] 2 spray NS DAILY 06/06/17 [ History] Hx Tetanus, Diphtheria Vaccination/Date Given: No Hx Influenza Vaccination/Date Given: No Hx Pneumococcal Vaccination/Date Given: No Immunizations Up to Date: No - Review of Systems Constitutional: Weakness, No Fever, No Chills Eyes: No Symptoms Ears, Nose, & Throat: No Symptoms Respiratory: No Cough, No Dyspnea Cardiac: No Symptoms, No Chest Pain, No Edema, No Syncope Abdominal/Gastrointestinal: Abdominal Pain, Nausea, No Vomiting, No Diarrhea, No Constipation, No Hematemesis, No Hematochezia, No Melena Genitourinary Symptoms: No Symptoms, No Dysuria Musculoskeletal: No Symptoms, No Back Pain, No Neck Pain Skin: No Symptoms, No Rash Neurological: No Symptoms, No Dizziness, No Focal Weakness, No Sensory Changes Psychological: No Symptoms Endocrine: No Symptoms All Other Systems: Reviewed and Negative - Past Medical History Pertinent Past Medical History: Yes Neurological History: No Pertinent History ENT History: Macular Degeneration Cardiac History: Congestive Heart Failure, Hypertension Respiratory History: Asthma, Bronchitis, COPD, Emphysema, Lung Cancer Endocrine Medical History: Diabetes Type II, Hypothyroidism Musculoskeletal History: Arthritis, Osteoarthritis GI Medical History: GERD History: No Pertinent History Psycho-Social History: Depression Female Reproductive Disorders: Breast Cancer, Cervical Cancer Other Medical History: CANCERS ALL IN REMISSION - Past Surgical History Past Surgical History: Yes Neuro Surgical History: No Pertinent History Cardiac: Cardiac Catheterization Respiratory: Lobectomy Gastrointestinal: Appendectomy, Cholecystectomy, Hemorrhoidectomy Genitourinary: No Pertinent History Musculoskeletal: Orthopedic Surgery Female Surgical History: Hysterectomy, Tubal Ligation, Other Other Surgical History: MASTECTOMY RT BREAST,BREAST CA,LUNG RT MIDDLE LOBE REMOVED,NISSON FLUNDOPLASTY,KNEE BACL SURG, shoulder surgery - Social History Smoking Status: Former smoker How long have you smoked: 5 Exposure to second hand smoke: No Drug Use: none Patient Lives Alone: No - Nursing Vital Signs Nursing Vital Signs: Initial Vital Signs Temperature 99.0 F 06/06/17 01:24 Pulse Rate 95 H 06/06/17 01:24 Respiratory Rate 18 06/06/17 01:24 Blood Pressure 128/90 06/06/17 01:24 O2 Sat by Pulse Oximetry 97 06/06/17 01:24 Pain Scale Pain Intensity 4 - Physical Exam General Appearance: no apparent distress, alert Eye Exam: PERRL/EOMI, eyes nml inspection Ears, Nose, Throat Exam: normal ENT inspection, pharynx normal, moist mucous membranes Neck Exam: normal inspection, non-tender, supple, full range of motion Respiratory Exam: normal breath sounds, lungs clear, No respiratory distress Cardiovascular Exam: regular rate/rhythm, normal heart sounds Gastrointestinal/Abdomen Exam: soft, normal bowel sounds, tenderness (epigastric /RUQ area with mild tenderness), No mass Pelvic Exam: not done Rectal Exam: deferred Back Exam: normal inspection, normal range of motion, No CVA tenderness, No vertebral tenderness Extremity Exam: normal inspection, normal range of motion, pelvis stable Neurologic Exam: alert, oriented x 3, cooperative, normal mood/affect, nml cerebellar function, sensation nml, No motor deficits Skin Exam: normal color, warm, dry SpO2: 97 Oxygen Delivery: Room Air - Course Nursing assessment & vital signs reviewed: Yes EKG Interpreted by Me: RATE (79), Sinus Rhythm, NORMAL AXIS, NORMAL INTERVALS, NORMAL QRS, Non-specific ST Changes - CT Exams Abdomen/Pelvis CT Interpretation: Tele-radiologist Report, Other (new small right pulmonary nodule, diverticulosis, fatty infiltration of liver and 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) Ordered Tests: Active Orders 24 hr Category Date Time Status Clean Catch Urine Specimen STAT Care 06/06/17 01:49 Active EKG-ER Only STAT Care 06/06/17 01:49 Active IV Insertion STAT Care 06/06/17 01:49 Active ABDOMEN AND PELVIS W/0 CONTRAS [CT] Stat Exams 06/06/17 01:50 Taken AMYLASE Stat Lab 06/06/17 02:07 Completed CBC W DIFF Stat Lab 06/06/17 02:07 Completed CMP Stat Lab 06/06/17 02:07 Completed CULTURE,URINE Stat Lab 06/06/17 03:15 Received LIPASE Stat Lab 06/06/17 02:07 Completed UA W/ MICROSCOPIC Stat Lab 06/06/17 03:15 Completed Medication Summary Discontinued Medications Generic Name Dose Route Start Last Admin Trade Name Odinq PRN Reason Stop Dose Admin Famotidine 20 mg 06/06/17 01:49 06/06/17 02:00 Pepcid 20 Mg Vial IV 06/06/17 01:50 20 mg STAT ONE Administration Famotidine Confirm 06/06/17 01:54 Pepcid 20 Mg Vial Administered 06/06/17 01:55 Dose 20 mg IV .STK-MED ONE Morphine Sulfate 2 mg 06/06/17 01:49 06/06/17 01:59 Morphine Sulfate 2 Mg Inj IV 06/06/17 01:50 2 mg STAT ONE Administration Morphine Sulfate Confirm 06/06/17 01:54 Morphine Sulfate 2 Mg Inj Administered 06/06/17 01:55 Dose 2 mg .ROUTE .STK-MED ONE Ondansetron HCl 4 mg 06/06/17 01:49 06/06/17 01:59 Zofran 4 Mg/2 Ml Vial IV 06/06/17 01:50 4 mg STAT ONE Administration Ondansetron HCl Confirm 06/06/17 01:54 Zofran 4 Mg/2 Ml Vial Administered 06/06/17 01:55 Dose 4 mg .ROUTE .STK-MED ONE Lab/Rad Data: Laboratory Result Diagrams 06/06/17 02:07 06/06/17 02:07 Laboratory Results 06/06/17 06/06/17 06/06/17 Range/Units 03:15 02:07 02:07 WBC 8.2 (4.0-10.5) K/mm3 RBC 5.28 (4.1-5.4) M/mm3 Hgb 15.2 (12.0-16.0) gm/dl Hct 45.3 (35-47) % MCV 85.8 (78-100) fl MCH 28.8 (26-32) pg MCHC 33.6 (32-36) g/dl RDW 13.6 (11.5-14.0) % Plt Count 131 L (150-450) K/mm3 MPV 11.0 H (6-9.5) fl Gran % 75.4 H (36.0-66.0) % Eos # (Auto) 0.28 (0-0.5) Absolute Lymphs (auto) 1.04 (1.0-4.6) Absolute Monos (auto) 0.66 (0.0-1.3) Lymphocytes % 12.7 L (24.0-44.0) % Monocytes % 8.1 (0.0-12.0) % Eosinophils % 3.4 (0.00-5.0) % Basophils % 0.4 (0.0-0.4) % Absolute Granulocytes 6.16 (1.4-6.9) Basophils # 0.03 (0-0.4) Sodium 134 L (137-145) mmol/L Potassium 3.5 (3.5-5.1) mmol/L Chloride 98 (98-107) mmol/L Carbon Dioxide 29 (22-30) mmol/L Anion Gap 9.6 (5-15) MEQ/L BUN 8 (7-17) mg/dL Creatinine 0.60 (0.52-1.04) mg/dL Estimated GFR > 60.0 ML/MIN Glucose 108 H (74-106) mg/dL Calcium 9.9 (8.4-10.2) mg/dL Total Bilirubin 0.80 (0.2-1.3) mg/dL AST 12 L (14-36) U/L ALT 15 (0-35) U/L Alkaline Phosphatase 65 (38-126) U/L Serum Total Protein 6.1 L (6.3-8.2) g/dL Albumin 3.4 L (3.5-5.0) g/dL Amylase 70 (30-110) U/L Lipase 35 (23-300) U/L Ur Collection Type VOID Urine Color YELLOW (YELLOW) Urine Appearance CLEAR (CLEAR) Urine pH 8.0 (5-6) Ur Specific [place] 1.010 (1.005-1.025) Urine Protein NEGATIVE (Negative) Urine Ketones NEGATIVE (NEGATIVE) Urine Blood TRACE NON-HEM (0-5) Michael/ul Urine Nitrite NEGATIVE (NEGATIVE) Urine Bilirubin NEGATIVE (NEGATIVE) Urine Urobilinogen NORMAL (0-1) mg/dL Ur Leukocyte Esterase 1+ (NEGATIVE) Urine Microscopic RBC 2-5 (0-2) /HPF Urine Microscopic WBC 5-10 (0-5) /HPF Ur Epithelial Cells MODERATE (FEW) /HPF Urine Bacteria FEW (NEGATIVE) /HPF Urine Mucus SLIGHT (NEGATIVE) /HPF Urine Culture Reflexed YES (NO) Urine Glucose NEGATIVE (NEGATIVE) mg/dL Specimen Received 06/06/175 - Progress Progress: improved Progress Note: 06/06/17 01:58 review of patient IV Pepcid, Zofran and morphine for discomfort 06/06/17 03:28 States she feels better and wants to go home. Patient instructed to follow-up with her oncologist Dr. Turcios 06/06/17 03:29 Counseled pt/family regarding: lab results, diagnosis, need for follow-up, rad results - Departure Time of Disposition: 03:29 Departure Disposition: Home Clinical Impression: Abdominal pain, UTI (urinary tract infection) Condition: Stable Critical Care Time: No Referrals: REBECCA GALVEZ MD [Primary Care Provider] - Instructions: Acute Abdomen (Belly Pain), Adult (DC), Urinary Tract Infection, Adult (DC) Additional Instructions: RX: Zofran/Levaquin Call Dr. Turcios for appointment to be seen in 1-2 days. Drink plenty of fluids Return for worse abdominal pain, vomiting, fever, diarrhea, dizziness, weakness or any problems Prescriptions: Levofloxacin [Levaquin] 500 mg PO DAILY 4 Days #4 tablet Ondansetron [Zofran Odt] 4 mg PO Q6-8HPRN PRN #10 tab.rapdis PRN Reason: Nausea/Vomiting
[2017-06-06 02:10] LABS: BASOPHIL % 0.4 % (0.0-0.4); Basophil (Absolute #) 0.03 (0-0.4); Eosinophil % 3.4 % (0.00-5.0); Eosinophil (Absolute #) 0.28 (0-0.5); Granulocyte Absolute (ANC) 6.16 (1.4-6.9); Granulocytes % 75.4 % (36.0-66.0); Hematocrit 45.3 % (35-47); Hemoglobin 15.2 gm/dl (12.0-16.0); Lymphocyte (Absolute #) 1.04 (1.0-4.6); Lymphocytes % 12.7 % (24.0-44.0); Mean Cell Volume 85.8 fl (78-100); Mean Corpuscular Hemoglobin 28.8 pg (26-32); Mean Corpuscular Hgb Concent. 33.6 g/dl (32-36); Monocyte (Absolute #) 0.66 (0.0-1.3); Monocytes % 8.1 % (0.0-12.0); Platelet Count 131 K/mm3 (150-450); Red Blood Count 5.28 M/mm3 (4.1-5.4); Red Cell Distribution Width 13.6 % (11.5-14.0); White Blood Count 8.2 K/mm3 (4.0-10.5)
[2017-06-06 02:16] LABS: ALBUMIN 3.4 g/dL (3.5-5.0); ALKALINE PHOSPHATASE 65 U/L (38-126); AMYLASE 70 U/L (30-110); ANION GAP 9.6 MEQ/L (5-15); BLOOD UREA NITROGEN 8 mg/dL (7-17); CHLORIDE 98 mmol/L (98-107); Calcium 9.9 mg/dL (8.4-10.2); Carbon Dioxide 29 mmol/L (22-30); Glucose 108 mg/dL (74-106); LIPASE 35 U/L (23-300); Potassium 3.5 mmol/L (3.5-5.1); SGOT/AST 12 U/L (14-36); SGPT/ALT 15 U/L (0-35); SODIUM 134 mmol/L (137-145); Total Protein 6.1 g/dL (6.3-8.2)
[2017-06-06 03:29] LABS: Appearance CLEAR (CLEAR); Leukocyte Esterase 1+ (NEGATIVE); Nitrite NEGATIVE (NEGATIVE); Protein,Urine Dip NEGATIVE (Negative)
[2017-06-06 03:30] LABS: Bacteria FEW /HPF (NEGATIVE); Bilirubin NEGATIVE (NEGATIVE); Blood TRACE NON-HEM Ery/ul (0-5); Epithelial Cells MODERATE /HPF (FEW); Glucose NEGATIVE (NEGATIVE); Ketones NEGATIVE (NEGATIVE); Mucus SLIGHT /HPF (NEGATIVE); Urobilinogen NORMAL mg/dL (0-1)
[2017-06-06] MEDS ORDERED: MORPHINE SULFATE 4 MG INJ IV ONE (03:38)
[2017-06-06] MEDS ORDERED: Levofloxacin 250MG Tablet PO ONE (03:38)
[2017-06-06] MEDS ORDERED: Levofloxacin 250MG Tablet ONE (03:41)
[2017-06-06 04:26] VITALS: BP 168/92; PULSE 65; O2SAT 98
--- NOTE | 2017-06-06 09:06 | XRAY ---
Indication: Right abdominal pain. Nausea and vomiting. Multiple contiguous axial images obtained through the abdomen and pelvis without contrast as ordered. Comparison: September 10, 2014. Lung bases again demonstrate minimal bilateral pleural parenchymal fibrosis/scarring. New right base 1.0 x 1.4 cm irregular noncalcified nodule. Heart is not enlarged. Stable postsurgical changes at the gastroesophageal junction. Noncontrasted stomach and bowel loops appear nonobstructed. Stable lipoma in the transverse duodenum. Again mild diffuse scattered colonic fecal debris throughout and mild colonic diverticulosis. Previous appendectomy, cholecystectomy, and hysterectomy. No free fluid/air. Spleen remains enlarged today measuring 13.5 cm in greatest axial dimension again with calcified splenic granulomas. Remaining liver, pancreas, spleen, adrenal glands, kidneys, ureters, and bladder appear unremarkable for noncontrast exam. Again mild aortoiliac calcifications without AAA. Osseous structures again demonstrate degenerative changes throughout the spine, scoliosis, and posterior L3-L4 fusion. Impression: 1. Again mild fecal stasis without obstruction and colonic diverticulosis. Stable duodenal lipoma. 2 Again incidental splenomegaly with calcified granulomas. 3. No acute intra-abdominal/pelvic abnormalities on this noncontrast exam. 4. New finding right lung base irregular noncalcified nodule. Nodule is smaller with respect to more recent CT chest exam March 26, 2017. Comment: Preliminary interpretation was made by C. No critical discrepancy. CT DI 27.88
== END 2017-06-06 04:24 | disposition home or self-care (01) ==
LOC: ED 01:18
DX: R10.11 Right upper quadrant pain (principal); N39.0 Urinary tract infection, site not specified; R11.0 Nausea; R53.1 Weakness; Z79.899 Other long term (current) drug therapy; C34.90 Malignant neoplasm of unspecified part of unspecified bronchus or lung; Z85.3 Personal history of malignant neoplasm of breast; Z85.41 Personal history of malignant neoplasm of cervix uteri; Z85.118 Personal history of other malignant neoplasm of bronchus and lung
CPT/HCPCS: 36000; 36415; 74176; 80053; 81000; 82150; 83690; 85025; 87086; 93005; 96374; 96375; 96376; 99284; J2270; J2405; A9270-GY

== ENCOUNTER 2017-08-02 14:25 | Inpatient (IN) | payer MEDICARE, OTHER ==
[2017-08-02] MEDS ORDERED: Sodium Chloride 0.9% 1000 ML 1,000 ML IV STA (14:40)
[2017-08-02] MEDS ORDERED: PROTONIX 40 MG IV IV ONE ×2 (14:40→14:50)
[2017-08-02] MEDS ORDERED: Zofran 4 MG/2 ML VIAL IV ONE (14:40)
[2017-08-02] MEDS ORDERED: Sodium Chloride 0.9% 1000 ML 1,000 ML ONE (14:50)
[2017-08-02] MEDS ORDERED: Zofran 4 MG/2 ML VIAL ONE (14:50)
--- NOTE | 2017-08-02 14:57 | ERPHSYRPT ---
- History of Present Illness Time Seen by Provider: 08/02/17 14:29 Historian: patient Exam Limitations: no limitations Patient Subjective Stated Complaint: pt arrived per ambulance from home for n/v for 10 days now, with pain all over, having loose stools as well. pt has hx of stage 4 lung cancer Triage Nursing Assessment: pt alert, resp easy, appears weak, skin w/d/p.abd soft, has pain all over, moves all ext well Physician History: patient with history of terminal stage IV lung CA, presents with abdominal pain , vomiting and diarrhea. Patient's lung CA was diagnosed in March 2017 inpatient has been through 10 radiation and 2 chemotherapies. Patient's currently on hospice. Patient was brought by EMS to ED today due to crampy generalized abdominal pain, intermittent and localized for the past 6-10 days. Patient also with vomiting and diarrhea episodes, approximately 5-7 times a day. Patient unable to keep down any meds, solids or liquids. Patient states that there is some blood in diarrhea stools. Patient also with dizziness and weakness. Patient still with chronic cough with hemoptysis at times. Patient denies any recent fever, chills, chest/back pain or urinary symptoms. Patient did take some morphine prior to arrival to ED Timing/Duration: day(s) (6-10), intermittent Activities at Onset: none Quality: cramping Abdominal Pain Onset Location: generalized abdomen Pain Radiation: no radiation Severity of Pain-Max: moderate Severity of Pain-Current: mild Modifying Factors: Improves With: eating (worsens), vomiting (improves) Associated Symptoms: diarrhea, loss of appetite, nausea, shortness of breath, vomiting, weakness, No chest pain, No diaphoresis, No fever/chills, No syncope Previous symptoms: same symptoms as today Allergies/Adverse Reactions: doxycycline Allergy (Intermediate, Verified 08/02/17 14:33) Swelling Iodinated Contrast- Oral and IV Dye Allergy (Intermediate, Verified 08/02/17 14: 33) Hives hives, rash, diff breathing belladonna alkaloids [From B & O 16-A Supprette] Allergy (Mild, Verified 14:33) CHILD ALLERGY cephalexin monohydrate [From Keflex] Allergy (Mild, Verified 08/02/17 14:33) Hives furosemide [From Lasix] Allergy (Mild, Verified 08/02/17 14:33) HEART ARTHYM prochlorperazine edisylate [From Compazine] Allergy (Mild, Verified 08/02/17 14: 33) HALLUCINATIONS prochlorperazine maleate [From Compazine] Allergy (Mild, Verified 08/02/17 14:33 ) HALLUCINATIONS Sulfa (Sulfonamide Antibiotics) [Sulfa(Sulfonamide Antibiotics)] Allergy (Mild, Verified 08/02/17 14:33) Hives codeine [Codeine] Adverse Reaction (Mild, Verified 08/02/17 14:33) Headache hydrocodone bitartrate [From Vicodin] Adverse Reaction (Mild, Verified 08/02/17 14:33) Headache ketorolac tromethamine [From Toradol] Adverse Reaction (Mild, Verified 08/02/17 14:33) Vomiting metformin HCl [From Glucophage] Adverse Reaction (Mild, Verified 08/02/17 14:33) Vomiting naproxen [From Naprosyn] Adverse Reaction (Mild, Verified 08/02/17 14:33) Headache opium *RETIRED-06/05/12 [From B & O 16-A Supprette] Adverse Reaction (Mild, Verified 08/02/17 14:33) DON'T LIKE THEM phenytoin sodium [From Dilantin] Adverse Reaction (Mild, Verified 08/02/17 14:33 ) FEEL DRUNK phenytoin sodium extended [From Dilantin] Adverse Reaction (Mild, Verified 08/02 14:33) FEEL DRUNK Lactobacillus acidophilus [From Acidophilus] Adverse Reaction (Verified 14:33) diuretics Allergy (Intermediate, Uncoded 08/02/17 14:33) HEART ARRHYTHMIAS pt states she is allergic to all diuretics. pt has cardiac arrhythmias influenza vaccine Adverse Reaction (Uncoded 08/02/17 14:33) Home Medications: Amlodipine Besylate 5 mg [Norvasc 5 mg] 2.5 mg PO DAILY 10/14/16 [History] Carvedilol 12.5 mg [Coreg 12.5 mg] 12.5 mg PO BID 10/14/16 [History] Fluoxetine HCl 20 mg [Prozac 20 MG] 20 mg PO DAILY 10/14/16 [History] Fluticasone/Salmeterol [Advair 250-50 Diskus] 1 each IH DAILY 10/14/16 [History] Insulin Detemir [Levemir] 45 unit SQ DAILY 10/14/16 [History] Levothyroxine Sodium 25 Mcg [Synthroid 25 Mcg] 25 mcg PO DAILY 10/14/16 [ History] Loratadine 10 mg [Claritin 10 mg] 10 mg PO DAILY 10/14/16 [History] Lutein 10 mg PO DAILY 10/14/16 [History] Metolazone 2.5 mg [Zaroxolyn 2.5 MG] 2.5 mg PO DAILY PRN PRN 10/14/16 [ History] Omeprazole 20 MG [Prilosec 20 mg] 20 mg PO DAILY 10/14/16 [History] Potassium Chloride 10 Meq Tab* [Klor Con 10 MEQ] 20 meq PO BID 10/14/16 [ History] Lisinopril 20 mg [Zestril 20 MG] 10 mg PO BID 03/26/17 [History] Multivitamin [Multivitamins] 1 each PO DAILY 03/26/17 [History] Nitroglycerin 0.4 mg Tablet [Nitrostat 0.4 MG Tablet] 0.4 mg SL UD [History] Brevitol 1 neb .ROUTE 06/06/17 [History] Fluticasone Propionate [Flonase Allergy Relief] 2 spray NS DAILY 06/06/17 [ History] Hx Tetanus, Diphtheria Vaccination/Date Given: No Hx Influenza Vaccination/Date Given: No Hx Pneumococcal Vaccination/Date Given: Yes Immunizations Up to Date: Yes - Review of Systems Constitutional: Fatigue, Lethargy, Weakness, No Fever, No Chills Eyes: No Symptoms Ears, Nose, & Throat: No Symptoms Respiratory: Cough (chronic due to lung CA), Dyspnea, Dyspnea on Exertion ([place]) Cardiac: No Symptoms, No Chest Pain, No Edema, No Palpitations, No Syncope Abdominal/Gastrointestinal: Abdominal Pain, Nausea, Vomiting, Diarrhea, Appetite Changes (decrease), No Hematochezia, No Melena Genitourinary Symptoms: No Symptoms, No Dysuria Musculoskeletal: No Symptoms, No Back Pain, No Neck Pain Skin: No Symptoms, No Rash Neurological: No Symptoms, No Dizziness, No Focal Weakness, No Sensory Changes Psychological: No Symptoms Endocrine: No Symptoms Hematologic/Lymphatic: No Symptoms All Other Systems: Reviewed and Negative - Past Medical History Pertinent Past Medical History: Yes Neurological History: No Pertinent History ENT History: Macular Degeneration Cardiac History: Congestive Heart Failure, Hypertension Respiratory History: Asthma, Bronchitis, COPD, Emphysema, Lung Cancer Endocrine Medical History: Diabetes Type II, Hypothyroidism Musculoskeletal History: Arthritis, Osteoarthritis GI Medical History: GERD History: No Pertinent History Psycho-Social History: Depression Female Reproductive Disorders: Breast Cancer, Cervical Cancer Other Medical History: CANCERS ALL IN REMISSION - Past Surgical History Past Surgical History: Yes Neuro Surgical History: No Pertinent History Cardiac: Cardiac Catheterization Respiratory: Lobectomy Gastrointestinal: Appendectomy, Cholecystectomy, Hemorrhoidectomy Genitourinary: No Pertinent History Musculoskeletal: Orthopedic Surgery Female Surgical History: Hysterectomy, Tubal Ligation, Other Other Surgical History: MASTECTOMY RT BREAST,BREAST CA,LUNG RT MIDDLE LOBE REMOVED,NISSON FLUNDOPLASTY,KNEE BACL SURG, shoulder surgery - Social History Smoking Status: Former smoker How long have you smoked: 5 Exposure to second hand smoke: No Drug Use: none Patient Lives Alone: Yes - Female History Hx Last Menstrual Period: post Hx Now: No - Nursing Vital Signs Nursing Vital Signs: Initial Vital Signs Temperature 100.8 F 08/02/17 14:26 Pulse Rate 109 H 08/02/17 14:26 Respiratory Rate 18 08/02/17 14:26 Blood Pressure 163/83 08/02/17 14:26 O2 Sat by Pulse Oximetry 91 L 08/02/17 14:26 Pain Scale Pain Intensity 0 - Physical Exam General Appearance: no apparent distress, alert Eye Exam: PERRL/EOMI, eyes nml inspection Ears, Nose, Throat Exam: normal ENT inspection, pharynx normal, dry mucous membranes Neck Exam: normal inspection, non-tender, supple, full range of motion Respiratory Exam: diminished breath sounds, rhonchi, No respiratory distress Cardiovascular Exam: regular rate/rhythm, normal heart sounds Gastrointestinal/Abdomen Exam: soft, normal bowel sounds, distention, No tenderness, No mass, No guarding, No pulsatile mass, No rebound Pelvic Exam: not done Back Exam: normal inspection, normal range of motion, No CVA tenderness, No vertebral tenderness Extremity Exam: normal inspection, normal range of motion, pelvis stable Neurologic Exam: alert, oriented x 3, cooperative, normal mood/affect, nml cerebellar function, sensation nml, No motor deficits Skin Exam: normal color, warm, dry SpO2 Interpretation: borderline oxygenation SpO2: 91 - Course Nursing assessment & vital signs reviewed: Yes - Radiology Exams Abdomen X-ray Interpretation: Interpreted by me, Infiltrates (no free air noted with dilated loops of bowel), Pneumonia Ordered Tests: Active Orders 24 hr Category Date Time Status OBSTR/ACUTE ABDOMEN SERIES Stat Exams 08/02/17 14:40 Completed AMYLASE Stat Lab 08/02/17 14:45 Completed CBC W DIFF Stat Lab 08/02/17 14:45 Completed CMP Stat Lab 08/02/17 14:45 Completed CULTURE,URINE Stat Lab 08/02/17 15:29 Received Manual Differential NC Stat Lab 08/02/17 14:45 Completed Occult Blood,Stool Other Stat Lab 08/02/17 16:12 Uncollected UA W/ MICROSCOPIC Stat Lab 08/02/17 15:29 Completed Medication Summary Generic Name Dose Route Start Last Admin Trade Name Freq PRN Reason Stop Dose Admin Sodium Chloride 1,000 mls @ 250 mls/hr 08/02/17 14:40 08/02/17 14:52 Sodium Chloride 0.9% 1000 Ml IV 08/02/17 18:39 250 mls/hr .Q4H STA Administration Potassium Chloride/Sodium Chloride 1,000 mls @ 100 mls/hr 08/02/17 15:45 15:43 Sodium Chloride 0.9% W/ 20 Meq Kcl/Liter IV 09/01/17 15:44 100 mls/hr .Q10H ANDREW Administration Discontinued Medications Generic Name Dose Route Start Last Admin Trade Name Freq PRN Reason Stop Dose Admin Acetaminophen 650 mg 08/02/17 15:02 08/02/17 15:10 Tylenol 325 Mg PO 08/02/17 15:03 650 mg STAT STA Administration Acetaminophen Confirm 08/02/17 15:03 Tylenol 325 Mg Administered 08/02/17 15:04 Dose 650 mg .ROUTE .STK-MED ONE Sodium Chloride Confirm 08/02/17 14:50 Sodium Chloride 0.9% 1000 Ml Administered 08/02/17 14:51 Dose 1,000 mls @ ud .ROUTE .STK-MED ONE Potassium Chloride/Sodium Chloride Confirm 08/02/17 15:30 Sodium Chloride 0.9% W/ 20 Meq Kcl/Liter Administered 08/02/17 15:31 Dose 1,000 mls @ ud IV .STK-MED ONE Ondansetron HCl 4 mg 08/02/17 14:40 08/02/17 14:51 Zofran 4 Mg/2 Ml Vial IV 08/02/17 14:41 4 mg STAT ONE Administration Ondansetron HCl Confirm 08/02/17 14:50 Zofran 4 Mg/2 Ml Vial Administered 08/02/17 14:51 Dose 4 mg .ROUTE .STK-MED ONE Pantoprazole Sodium 40 mg 08/02/17 14:40 08/02/17 14:51 Protonix 40 Mg Iv IV 08/02/17 14:41 40 mg STAT ONE Administration Pantoprazole Sodium Confirm 08/02/17 14:50 Protonix 40 Mg Iv Administered 08/02/17 14:51 Dose 40 mg IV .STK-MED ONE Lab/Rad Data: Laboratory Result Diagrams 08/02/17 14:45 08/02/17 14:45 Laboratory Results 08/02/17 08/02/17 08/02/17 Range/Units 15:29 14:45 14:45 WBC 19.9 H (4.0-10.5) K/mm3 RBC 4.78 (4.1-5.4) M/mm3 Hgb 14.3 (12.0-16.0) gm/dl Hct 40.8 (35-47) % MCV 85.4 (78-100) fl MCH 29.9 (26-32) pg MCHC 35.0 (32-36) g/dl RDW 13.8 (11.5-14.0) % Plt Count 253 (150-450) K/mm3 MPV 11.0 H (6-9.5) fl Gran % 86.4 H (36.0-66.0) % Eos # (Auto) 0.02 (0-0.5) Absolute Lymphs (auto) 1.16 (1.0-4.6) Absolute Monos (auto) 1.50 H (0.0-1.3) Lymphocytes % 5.8 L (24.0-44.0) % Monocytes % 7.6 (0.0-12.0) % Eosinophils % 0.1 (0.00-5.0) % Basophils % 0.1 (0.0-0.4) % Absolute Granulocytes 17.15 H (1.4-6.9) Segmented Neutrophils 86 H (36.0-66.0) % Band Neutrophils 1 (0.0-2.0) % Lymphocytes (Manual) 9 L (24-44) % Monocytes (Manual) 4 (0.0-12.0) % Basophils # 0.02 (0-0.4) Platelet Estimate NORMAL (NORMAL) RBC Morphology NORMAL Sodium 134 L (137-145) mmol/L Potassium 3.0 L (3.5-5.1) mmol/L Chloride 97 L (98-107) mmol/L Carbon Dioxide 27 (22-30) mmol/L Anion Gap 13.3 (5-15) MEQ/L BUN 12 (7-17) mg/dL Creatinine 0.59 (0.52-1.04) mg/dL Estimated GFR > 60.0 ML/MIN Glucose 108 H (74-106) mg/dL Calcium 8.2 L (8.4-10.2) mg/dL Total Bilirubin 1.20 (0.2-1.3) mg/dL AST 67 H (14-36) U/L ALT 50 H (0-35) U/L Alkaline Phosphatase 114 (38-126) U/L Serum Total Protein 5.9 L (6.3-8.2) g/dL Albumin 3.1 L (3.5-5.0) g/dL Amylase < 30 L (30-110) U/L Ur Collection Type VOID Urine Color YELLOW (YELLOW) Urine Appearance CLEAR (CLEAR) Urine pH 6.0 (5-6) Ur Specific [place] 1.010 (1.005-1.025) Urine Protein 1+ (Negative) Urine Ketones MODERATE (NEGATIVE) Urine Blood 250 (0-5) Michael/ul Urine Nitrite NEGATIVE (NEGATIVE) Urine Bilirubin SMALL (NEGATIVE) Urine Urobilinogen 4 (0-1) mg/dL Ur Leukocyte Esterase TRACE (NEGATIVE) Urine Microscopic RBC 0-2 (0-2) /HPF Urine Microscopic WBC 5-10 (0-5) /HPF Ur Epithelial Cells RARE (FEW) /HPF Urine Bacteria FEW (NEGATIVE) /HPF Urine Culture Reflexed YES (NO) Urine Glucose NEGATIVE (NEGATIVE) mg/dL Specimen Received 6/21/18 1529 - Progress Progress: improved Progress Note: 08/02/17 15:00 Pt. given IVF's, Protonix and Zofran. We will also obtain blood, UA and AAS for evaluation. 08/02/17 16:23 patient does feel somewhat better. We will admit and treat patient with Rocephin/Zithromax for pneumonia Discussed with Dr.: Shawn (notified about patient and agreed to accept for further care) Will see patient in: hospital (observation), hospital (full admit) - Departure Time of Disposition: 16:22 Departure Disposition: Observation Clinical Impression: Pneumonia, Hypokalemia, Vomiting and diarrhea Condition: Stable Critical Care Time: No Referrals: REBECCA GALVEZ MD [Primary Care Provider] -
[2017-08-02 14:59] LABS: BASOPHIL % 0.1 % (0.0-0.4); Basophil (Absolute #) 0.02 (0-0.4); Eosinophil % 0.1 % (0.00-5.0); Eosinophil (Absolute #) 0.02 (0-0.5); Granulocyte Absolute (ANC) 17.15 (1.4-6.9); Granulocytes % 86.4 % (36.0-66.0); Hematocrit 40.8 % (35-47); Hemoglobin 14.3 gm/dl (12.0-16.0); Lymphocyte (Absolute #) 1.16 (1.0-4.6); Lymphocytes % 5.8 % (24.0-44.0); Mean Cell Volume 85.4 fl (78-100); Mean Corpuscular Hemoglobin 29.9 pg (26-32); Monocytes % 7.6 % (0.0-12.0); Platelet Count 253 K/mm3 (150-450); Red Blood Count 4.78 M/mm3 (4.1-5.4); Red Cell Distribution Width 13.8 % (11.5-14.0); White Blood Count 19.9 K/mm3 (4.0-10.5)
[2017-08-02] MEDS ORDERED: TYLENOL 325 MG PO STA (15:02)
[2017-08-02] MEDS ORDERED: TYLENOL 325 MG ONE (15:03)
[2017-08-02 15:20] LABS: ALBUMIN 3.1 g/dL (3.5-5.0); ALKALINE PHOSPHATASE 114 U/L (38-126); AMYLASE < 30 U/L (30-110); ANION GAP 13.3 MEQ/L (5-15); BLOOD UREA NITROGEN 12 mg/dL (7-17); CHLORIDE 97 mmol/L (98-107); Calcium 8.2 mg/dL (8.4-10.2); Carbon Dioxide 27 mmol/L (22-30); Creatinine 1 0.59 mg/dL (0.52-1.04); Glucose 108 mg/dL (74-106); SGOT/AST 67 U/L (14-36); SGPT/ALT 50 U/L (0-35); SODIUM 134 mmol/L (137-145); Total Protein 5.9 g/dL (6.3-8.2)
[2017-08-02] MEDS ORDERED: Sodium Chloride 0.9% W/ 20 mEq KCl/LITER 1,000 ML IV ONE (15:30)
[2017-08-02 15:38] LABS: BAND 1 % (0.0-2.0); Lymphocytes 9 % (24-44); Monocyte 4 % (0.0-12.0); Neutrophils 86 % (36.0-66.0); Platelet Estimate NORMAL (NORMAL); Total Cells Counted 100
[2017-08-02] MEDS: Sodium Chloride 0.9% W/ 20 mEq KCl/LITER 1,000 ML IV SCH (15:43)
[2017-08-02 15:45] LABS: Appearance CLEAR (CLEAR); Bilirubin SMALL (NEGATIVE); Blood 250 Ery/ul (0-5); Glucose NEGATIVE (NEGATIVE); Ketones MODERATE (NEGATIVE); Leukocyte Esterase TRACE (NEGATIVE); Nitrite NEGATIVE (NEGATIVE); Protein,Urine Dip 1+ (Negative); Urobilinogen 4 mg/dL (0-1)
[2017-08-02 16:08] LABS: Bacteria FEW /HPF (NEGATIVE); Epithelial Cells RARE /HPF (FEW); RBC 0-2 /HPF (0-2)
--- NOTE | 2017-08-02 16:17 | XRAY ---
Indication: Lower abdominal pain. History lung cancer, cervical cancer, and right breast cancer. Comparison: Chest exam March 26, 2017. Nonacute CT abdomen/pelvis June 06, 2017. 2 views of the abdomen demonstrates nonspecific nonobstructed bowel gas pattern with epigastric and right upper quadrant surgical clips. No focal bowel dilatation or free air. Solid organs unremarkable. Osseous structures intact with multilevel degenerative spondylosis, levorotoscoliosis, and L3-L4 posterior fusion. Single AP chest demonstrates new diffuse right lung and left upper lung infiltrates without consolidation or large effusion. Heart is not enlarged. Bony thorax intact again with mild dextroscoliosis and right axillary negrito dissection. New left Port-A-Cath. Impression: 1. Nonacute nonobstructed abdomen with chronic features. 2. New bilateral infiltrates as detailed. Rule out pneumonia/pneumonitis. 3. New left Port-A-Cath without complications.
[2017-08-02] MEDS ORDERED: Zithromax 500 MG/ 250 ML NaCl Premix 500 MG/250 ML IVPB IV STA (16:25)
[2017-08-02] MEDS ORDERED: Zithromax 500 MG/ 250 ML NaCl Premix 500 MG/250 ML IVPB IV ONE (17:02)
--- NOTE | 2017-08-02 18:27 | PCM.HP ---
History of Present Illness - Chief Complaint Chief Complaint: abdominal pain, nausea vomiting History of Present Illness: is a 77 year old female.patient with history of terminal stage IV lung CA, presents with abdominal pain, vomiting and diarrhea. Patient's lung CA was diagnosed in March 2017 inpatient has been through 10 radiation and 2 chemotherapies. Patient's currently on hospice. Patient was brought by EMS to ED today due to crampy generalized abdominal pain, intermittent and localized for the past 6-10 days. Patient also with vomiting and diarrhea episodes, approximately 5-7 times a day. Patient unable to keep down any meds, solids or liquids. Patient states that there is some blood in diarrhea stools. Patient also with dizziness and weakness. Patient still with chronic cough with hemoptysis at times. Patient denies any recent fever, chills, chest/back pain or urinary symptoms. Patient did take some morphine prior to arrival to ED Timing/Duration: day(s) (6-10), intermittent Activities at Onset: none Quality: cramping Abdominal Pain Onset Location: generalized abdomen Pain Radiation: no radiation Severity of Pain-Max: moderate Severity of Pain-Current: mild Modifying Factors: Improves With: eating (worsens), vomiting (improves) Associated Symptoms: diarrhea, loss of appetite, nausea, shortness of breath, vomiting, weakness, No chest pain, No diaphoresis, No fever/chills, No syncope Previous symptoms: same symptoms as toda - Review of Systems Constitutional: Fever, Chills, Malaise, Weakness Eyes: No Symptoms Ears, Nose, & Throat: No Symptoms Respiratory: Cough, Short Of Breath, Wheezing Cardiac: No Chest Pain, No Edema, No Syncope Abdominal/Gastrointestinal: Abdominal Pain, Vomiting, Diarrhea, No Nausea Genitourinary Symptoms: No Dysuria Musculoskeletal: No Back Pain, No Neck Pain Skin: No Rash Neurological: No Dizziness, No Focal Weakness, No Sensory Changes Psychological: No Symptoms Endocrine: No Symptoms Hematologic/Lymphatic: No Symptoms Immunological/Allergic: No Symptoms Medications & Allergies Home Medications: Home Medication List Amlodipine Besylate 5 mg [Norvasc 5 mg] 2.5 mg PO DAILY 10/14/16 [History Confirmed 08/02/17] Carvedilol 12.5 mg [Coreg 12.5 mg] 12.5 mg PO BID 10/14/16 [History Confirmed 08/02/17] Fluoxetine HCl 20 mg [Prozac 20 MG] 20 mg PO DAILY 10/14/16 [History Confirmed 08/02/17] Insulin Detemir [Levemir] 35 unit SQ HS 10/14/16 [History Confirmed 08/02/17] Levothyroxine Sodium 25 Mcg [Synthroid 25 Mcg] 25 mcg PO DAILY 10/14/16 [ History Confirmed 08/02/17] Loratadine 10 mg [Claritin 10 mg] 10 mg PO DAILY 10/14/16 [History Confirmed 08/02/17] Lutein 10 mg PO DAILY 10/14/16 [History Confirmed 08/02/17] Omeprazole 20 MG [Prilosec 20 mg] 20 mg PO DAILY 10/14/16 [History Confirmed ] Potassium Chloride 10 Meq Tab* [Klor Con 10 MEQ] 20 meq PO BID 10/14/16 [ History Confirmed 08/02/17] Lisinopril 20 mg [Zestril 20 MG] 10 mg PO BID 03/26/17 [History Confirmed 08/02/17] Nitroglycerin 0.4 mg Tablet [Nitrostat 0.4 MG Tablet] 0.4 mg SL UD [History Confirmed 08/02/17] Fluticasone Propionate [Flonase Allergy Relief] 2 spray NS DAILY 06/06/17 [ History Confirmed 08/02/17] Ondansetron [Zofran Odt] 4 mg PO Q6-8HPRN PRN #10 tab.rapdis 06/06/17 [Rx Confirmed 08/02/17] Clindamycin HCl [Cleocin HCl] 150 mg PO QID 08/02/17 [History Confirmed 08/02/17 ] Morphine Sulfate 5 mg PO Q2H/PRN PRN 08/02/17 [History Confirmed 08/02/17] Oxycodone HCl/Acetaminophen [Oxycodone-Acetaminophen 5-325] 1 each PO Q4HPRN PRN 08/02/17 [History Confirmed 08/02/17] Allergies/Adverse Reactions: Allergies Allergy/AdvReac Type Severity Reaction Status Date / Time doxycycline Allergy Intermediate Swelling Verified 08/02/17 14:33 Iodinated Contrast- Oral and Allergy Intermediate Hives Verified 08/02/17 14:33 IV Dye belladonna alkaloids Allergy Mild CHILD Verified 08/02/17 14:33 [From B & O 16-A Supprette] ALLERGY cephalexin monohydrate Allergy Mild Hives Verified 08/02/17 14:33 [From Keflex] furosemide [From Lasix] Allergy Mild HEART Verified 08/02/17 14:33 ARTHYM prochlorperazine edisylate Allergy Mild HALLUCINATI Verified 08/02/17 14:33 [From Compazine] ONS prochlorperazine maleate Allergy Mild HALLUCINATI Verified 08/02/17 14:33 [From Compazine] ONS Sulfa (Sulfonamide Allergy Mild Hives Verified 08/02/17 14:33 Antibiotics) [Sulfa(Sulfonamide Antibiotics)] codeine [Codeine] AdvReac Mild Headache Verified 08/02/17 14:33 hydrocodone bitartrate AdvReac Mild Headache Verified 08/02/17 14:33 [From Vicodin] ketorolac tromethamine AdvReac Mild Vomiting Verified 08/02/17 14:33 [From Toradol] metformin HCl AdvReac Mild Vomiting Verified 08/02/17 14:33 [From Glucophage] naproxen [From Naprosyn] AdvReac Mild Headache Verified 08/02/17 14:33 opium *RETIRED-06/05/12 AdvReac Mild DON'T LIKE Verified 08/02/17 14:33 [From B & O 16-A Supprette] THEM phenytoin sodium AdvReac Mild FEEL DRUNK Verified 08/02/17 14:33 [From Dilantin] phenytoin sodium extended AdvReac Mild FEEL DRUNK Verified 08/02/17 14:33 [From Dilantin] Lactobacillus acidophilus AdvReac Verified 08/02/17 14:33 [From Acidophilus] diuretics Allergy Intermediate HEART Uncoded 08/02/17 14:33 ARRHYTHMIAS influenza vaccine AdvReac Uncoded 08/02/17 14:33 - Past Medical History Past Medical History: Yes Neurological History: No Pertinent History ENT History: Macular Degeneration Cardiac History: Congestive Heart Failure, Hypertension Respiratory History: Asthma, Bronchitis, COPD, Emphysema, Lung Cancer Endocrine Medical History: Diabetes Type II, Hypothyroidism Musculoskelatal History: Arthritis, Osteoarthritis GI Medical History: GERD History: No Pertinent History Pyscho-Social History: Depression Reproductive Disorders: Breast Cancer, Cervical Cancer Comment: CANCERS ALL IN REMISSION - Female History Hx Last Menstrual Period: post Are you now?: No - Past Surgical History Past Surgical History: Yes Neuro Surgical History: No Pertinent History Cardiac History: Cardiac Catheterization Respiratory Surgery: Lobectomy GI Surgical History: Appendectomy, Cholecystectomy, Hemorrhoidectomy Genitourinary Surgical Hx: No Pertinent History Musculskeletal Surgical Hx: Orthopedic Surgery Female Surgical History: Hysterectomy, Tubal Ligation, Other Other Surgical History: MASTECTOMY RT BREAST,BREAST CA,LUNG RT MIDDLE LOBE REMOVED,NISSON FLUNDOPLASTY,KNEE BACL SURG, shoulder surgery - Social History Smoking Status: Former smoker How long have you smoked: 5 Exposure to second hand smoke: No Alcohol: None Drug Use: none - Physical Exam Vital Signs: Vital Signs - 24 hr Temp Pulse Resp BP Pulse Ox 08/02/17 17:40 98.6 F 96 H 20 139/73 95 08/02/17 16:57 95 H 18 153/75 95 08/02/17 16:24 91 L 08/02/17 15:55 102 F 101 H 18 105/87 96 08/02/17 14:26 100.8 F 109 H 18 163/83 91 L Oxygen-Last 24 hours O2 Percentage 2 Liters = 28% O2 Percentage 2 Liters = 28% O2 Percentage 2 Liters = 28% O2 Percentage 2 Liters = 28% General Appearance: mild distress, alert Neurologic Exam: alert, oriented x 3, cooperative, normal mood/affect, nml cerebellar function, nml station & gait, sensation nml, No motor deficits Eye Exam: PERRL/EOMI, eyes nml inspection Ears, Nose, Throat Exam: normal ENT inspection, TMs normal, pharynx normal, moist mucous membranes Neck Exam: normal inspection, non-tender, supple, full range of motion Respiratory Exam: crackles/rales, rhonchi, wheezing, No respiratory distress Cardiovascular Exam: regular rate/rhythm, normal heart sounds, normal peripheral pulses Gastrointestinal/Abdomen Exam: soft, tenderness, No mass Back Exam: normal inspection, normal range of motion, No CVA tenderness, No vertebral tenderness Extremity Exam: normal inspection, normal range of motion, pelvis stable Skin Exam: normal color, warm, dry, No rash Lymphatic Exam: No adenopathy Results - Labs Lab/Micro Results: Lab Results-Last 24 Hours 08/02/17 08/02/17 08/02/17 Range/Units 14:45 14:45 15:29 WBC 19.9 H (4.0-10.5) K/mm3 RBC 4.78 (4.1-5.4) M/mm3 Hgb 14.3 (12.0-16.0) gm/dl Hct 40.8 (35-47) % MCV 85.4 (78-100) fl MCH 29.9 (26-32) pg MCHC 35.0 (32-36) g/dl RDW 13.8 (11.5-14.0) % Plt Count 253 (150-450) K/mm3 MPV 11.0 H (6-9.5) fl Gran % 86.4 H (36.0-66.0) % Eos # (Auto) 0.02 (0-0.5) Absolute Lymphs (auto) 1.16 (1.0-4.6) Absolute Monos (auto) 1.50 H (0.0-1.3) Lymphocytes % 5.8 L (24.0-44.0) % Monocytes % 7.6 (0.0-12.0) % Eosinophils % 0.1 (0.00-5.0) % Basophils % 0.1 (0.0-0.4) % Absolute Granulocytes 17.15 H (1.4-6.9) Segmented Neutrophils 86 H (36.0-66.0) % Band Neutrophils 1 (0.0-2.0) % Lymphocytes (Manual) 9 L (24-44) % Monocytes (Manual) 4 (0.0-12.0) % Basophils # 0.02 (0-0.4) Platelet Estimate NORMAL (NORMAL) RBC Morphology NORMAL Sodium 134 L (137-145) mmol/L Potassium 3.0 L (3.5-5.1) mmol/L Chloride 97 L (98-107) mmol/L Carbon Dioxide 27 (22-30) mmol/L Anion Gap 13.3 (5-15) MEQ/L BUN 12 (7-17) mg/dL Creatinine 0.59 (0.52-1.04) mg/dL Estimated GFR > 60.0 ML/MIN Glucose 108 H (74-106) mg/dL Calcium 8.2 L (8.4-10.2) mg/dL Total Bilirubin 1.20 (0.2-1.3) mg/dL AST 67 H (14-36) U/L ALT 50 H (0-35) U/L Alkaline Phosphatase 114 (38-126) U/L Serum Total Protein 5.9 L (6.3-8.2) g/dL Albumin 3.1 L (3.5-5.0) g/dL Amylase < 30 L (30-110) U/L Ur Collection Type VOID Urine Color YELLOW (YELLOW) Urine Appearance CLEAR (CLEAR) Urine pH 6.0 (5-6) Ur Specific [place] 1.010 (1.005-1.025) Urine Protein 1+ (Negative) Urine Ketones MODERATE (NEGATIVE) Urine Blood 250 (0-5) Michael/ul Urine Nitrite NEGATIVE (NEGATIVE) Urine Bilirubin SMALL (NEGATIVE) Urine Urobilinogen 4 (0-1) mg/dL Ur Leukocyte Esterase TRACE (NEGATIVE) Urine Microscopic RBC 0-2 (0-2) /HPF Urine Microscopic WBC 5-10 (0-5) /HPF Ur Epithelial Cells RARE (FEW) /HPF Urine Bacteria FEW (NEGATIVE) /HPF Urine Culture Reflexed YES (NO) Urine Glucose NEGATIVE (NEGATIVE) mg/dL Stool Occult Blood (Negative) Specimen Received 08/02/17 1529 08/02/17 Range/Units Unknown WBC (4.0-10.5) K/mm3 RBC (4.1-5.4) M/mm3 Hgb (12.0-16.0) gm/dl Hct (35-47) % MCV (78-100) fl MCH (26-32) pg MCHC (32-36) g/dl RDW (11.5-14.0) % Plt Count (150-450) K/mm3 MPV (6-9.5) fl Gran % (36.0-66.0) % Eos # (Auto) (0-0.5) Absolute Lymphs (auto) (1.0-4.6) Absolute Monos (auto) (0.0-1.3) Lymphocytes % (24.0-44.0) % Monocytes % (0.0-12.0) % Eosinophils % (0.00-5.0) % Basophils % (0.0-0.4) % Absolute Granulocytes (1.4-6.9) Segmented Neutrophils (36.0-66.0) % Band Neutrophils (0.0-2.0) % Lymphocytes (Manual) (24-44) % Monocytes (Manual) (0.0-12.0) % Basophils # (0-0.4) Platelet Estimate (NORMAL) RBC Morphology Sodium (137-145) mmol/L Potassium (3.5-5.1) mmol/L Chloride (98-107) mmol/L Carbon Dioxide (22-30) mmol/L Anion Gap (5-15) MEQ/L BUN (7-17) mg/dL Creatinine (0.52-1.04) mg/dL Estimated GFR ML/MIN Glucose (74-106) mg/dL Calcium (8.4-10.2) mg/dL Total Bilirubin (0.2-1.3) mg/dL AST (14-36) U/L ALT (0-35) U/L Alkaline Phosphatase (38-126) U/L Serum Total Protein (6.3-8.2) g/dL Albumin (3.5-5.0) g/dL Amylase (30-110) U/L Ur Collection Type Urine Color (YELLOW) Urine Appearance (CLEAR) Urine pH (5-6) Ur Specific [place] (1.005-1.025) Urine Protein (Negative) Urine Ketones (NEGATIVE) Urine Blood (0-5) Michael/ul Urine Nitrite (NEGATIVE) Urine Bilirubin (NEGATIVE) Urine Urobilinogen (0-1) mg/dL Ur Leukocyte Esterase (NEGATIVE) Urine Microscopic RBC (0-2) /HPF Urine Microscopic WBC (0-5) /HPF Ur Epithelial Cells (FEW) /HPF Urine Bacteria (NEGATIVE) /HPF Urine Culture Reflexed (NO) Urine Glucose (NEGATIVE) mg/dL Stool Occult Blood NEGATIVE (Negative) Specimen Received - Radiology Impressions Radiology Exams & Impressions: Radiology Procedures Category Date Time Status OBSTR/ACUTE ABDOMEN SERIES Stat Exams 08/02/17 14:40 Completed Assessment/Plan (1) Pneumonia Current Visit: Yes Status: Acute Qualifiers: Pneumonia type: due to unspecified organism Laterality: unspecified laterality Lung location: unspecified part of lung Qualified Code(s): J18.9 - Pneumonia, unspecified organism Code(s): J18.9 - PNEUMONIA, UNSPECIFIED ORGANISM (2) Hypokalemia Current Visit: Yes Status: Acute Code(s): E87.6 - HYPOKALEMIA (3) Vomiting and diarrhea Current Visit: Yes Status: Acute Code(s): R11.10 - VOMITING, UNSPECIFIED; R19.7 - DIARRHEA, UNSPECIFIED (4) Abdominal pain Current Visit: No Status: Acute Qualifiers: Abdominal location: generalized Qualified Code(s): R10.84 - Generalized abdominal pain Code(s): R10.9 - UNSPECIFIED ABDOMINAL PAIN (5) Diabetes mellitus type 2 Current Visit: Yes Status: Chronic Code(s): E11.9 - TYPE 2 DIABETES MELLITUS WITHOUT COMPLICATIONS (6) Hypertension Current Visit: Yes Status: Chronic Qualifiers: Hypertension type: essential hypertension Qualified Code(s): I10 - Essential (primary) hypertension Code(s): I10 - ESSENTIAL (PRIMARY) HYPERTENSION
[2017-08-02] MEDS: Advair Hfa 115/21 Common canister IH SCH (19:43)
[2017-08-02] MEDS: DUONEB 0.5-3 MG/3 ml Neb IH SCH (19:43)
[2017-08-02] MEDS: Zofran 4 MG/2 ML VIAL IV PRN (22:15)
[2017-08-02] MEDS: PERCOCET TABLET 5/325MG PO PRN (22:16)
[2017-08-02] MEDS ORDERED: Nitrostat 0.4 MG Tablet SL PRN (22:23)
[2017-08-02] MEDS ORDERED: ZOFRAN ODT 4 MG PO PRN (22:23)
[2017-08-02] MEDS: COREG 12.5 MG PO SCH (23:32)
[2017-08-02] MEDS: Klor Con 10 MEQ PO SCH (23:33)
[2017-08-02] MEDS: Lantus Insulin SQ SCH (23:33)
[2017-08-02] MEDS: CLEOCIN 150 MG CAPSULE PO SCH (23:34)
[2017-08-02] MEDS: Zestril 10 MG PO SCH (23:34)
[2017-08-03] MEDS: DUONEB 0.5-3 MG/3 ml Neb IH SCH ×3 (00:51→12:25)
[2017-08-03] MEDS: Sodium Chloride 0.9% W/ 20 mEq KCl/LITER 1,000 ML IV SCH ×2 (01:45→21:36)
[2017-08-03] MEDS: PERCOCET TABLET 5/325MG PO PRN ×4 (06:14→21:04)
[2017-08-03] MEDS: Zofran 4 MG/2 ML VIAL IV PRN ×3 (06:14→23:23)
[2017-08-03] MEDS: Advair Hfa 115/21 Common canister IH SCH ×2 (06:45→18:55)
[2017-08-03] MEDS ORDERED: MORPHINE SULFATE 5 MG PO PRN (07:05)
[2017-08-03] MEDS ORDERED: MEDICATION INTERVENTION MC SCH (07:15)
[2017-08-03] MEDS: Klor Con 10 MEQ PO SCH ×2 (08:10→21:05)
[2017-08-03] MEDS: COREG 12.5 MG PO SCH ×2 (08:10→21:05)
[2017-08-03] MEDS: Zestril 10 MG PO SCH ×2 (08:10→21:05)
[2017-08-03] MEDS: SYNTHROID 25 MCG PO SCH (08:14)
[2017-08-03] MEDS: NORVASC 5 MG PO SCH (08:14)
[2017-08-03] MEDS: Protonix 40MG Tablet PO SCH (08:14)
[2017-08-03] MEDS: CLARITIN 10 MG PO SCH (08:14)
[2017-08-03] MEDS: Prozac 20 MG PO SCH (08:15)
[2017-08-03] MEDS: Zithromax 500 MG/ 250 ML NaCl Premix 500 MG/250 ML IVPB IV SCH (08:15)
[2017-08-03] MEDS: Flonase NASAL NS SCH (08:18)
[2017-08-03] MEDS: CLEOCIN 150 MG CAPSULE PO SCH (08:30)
[2017-08-03] MEDS: Phenergan 25 MG INJ IV PRN (09:00)
[2017-08-03] MEDS ORDERED: [UNRECOGNIZED DRUG - REMARK] NS SCH (10:00)
[2017-08-03] MEDS ORDERED: NON-FORMULARY ITEM (Omeprazole 20 Mg [Prilosec 20 Mg] 20 MG) PO SCH (10:00)
--- NOTE | 2017-08-03 10:51 | PCM.NOTE ---
Date and Time: 08/03/17 1050 Subjective Assessment: still short of breath - Review of Systems Constitutional: No Fever, No Chills Eyes: No Symptoms Ears, Nose, & Throat: No Symptoms Respiratory: Cough, Orthopnea, Short Of Breath Cardiac: No Chest Pain, No Edema, No Syncope Abdominal/Gastrointestinal: Abdominal Pain, Nausea, Vomiting, No Diarrhea Genitourinary Symptoms: No Dysuria Musculoskeletal: No Back Pain, No Neck Pain Skin: No Rash Neurological: No Dizziness, No Focal Weakness, No Sensory Changes Psychological: No Symptoms Endocrine: No Symptoms Hematologic/Lymphatic: No Symptoms Immunological/Allergic: No Symptoms Objective Exam General Appearance: no apparent distress, alert Neurologic Exam: alert, oriented x 3, cooperative, normal mood/affect, nml cerebellar function, sensation nml, No motor deficits Skin Exam: normal color, warm, dry Eye Exam: PERRL, EOMI, eyes nml inspection Ears, Nose, Throat Exam: normal ENT inspection, pharynx normal, moist mucous membranes Neck Exam: normal inspection, non-tender, supple, full range of motion Respiratory Exam: crackles/rales, rhonchi, wheezing, No respiratory distress Cardiovascular Exam: regular rate/rhythm, normal heart sounds Gastrointestinal/Abdomen Exam: soft, No tenderness, No mass Extremity Exam: normal inspection, normal range of motion Back Exam: normal inspection, normal range of motion, No CVA tenderness, No vertebral tenderness Pelvic Exam: deferred Rectal Exam: deferred OBJECTIVE DATA Vital Signs: Vital Signs - 24 hr Temp Pulse Resp BP Pulse Ox 08/03/17 08:00 99.8 F 108 H 20 135/62 94 L 08/03/17 06:50 105 H 20 97 08/03/17 04:00 97.9 F 106 H 18 176/74 94 L 08/03/17 00:51 107 H 24 94 L 08/03/17 00:00 99.1 F 108 H 18 138/63 94 L 08/02/17 20:29 98.6 F 96 H 20 139/73 95 08/02/17 20:00 98.6 F 96 H 20 139/73 95 08/02/17 19:43 98 H 24 95 08/02/17 17:40 98.6 F 96 H 20 139/73 95 08/02/17 16:57 95 H 18 153/75 95 08/02/17 16:24 91 L 08/02/17 15:55 102 F 101 H 18 105/87 96 08/02/17 14:26 100.8 F 109 H 18 163/83 91 L Oxygen-Last 24 hours O2 Percentage 2 Liters = 28% O2 Percentage 2 Liters = 28% O2 Percentage 2 Liters = 28% O2 Percentage 2 Liters = 28% O2 Percentage 2 Liters = 28% O2 Percentage 2 Liters = 28% O2 Percentage 2 Liters = 28% Oxygen Flowrate (L/min)-RT 2 Pain Assessment - Last Documented Pain Intensity 7 Pain Scale Used 0-10 Pain Scale Intake and Output: Intake & Output 07/31/17 08/01/17 08/02/17 08/03/17 11:59 11:59 11:59 11:59 Intake Total 1955 Output Total 500 Balance 1455 Weight 100 kg Lab Results: Accuchecks Accucheck Value: 92 Lab Results-Last 24 Hours 08/02/17 08/02/17 08/02/17 Range/Units 14:45 14:45 15:29 WBC 19.9 H (4.0-10.5) K/mm3 RBC 4.78 (4.1-5.4) M/mm3 Hgb 14.3 (12.0-16.0) gm/dl Hct 40.8 (35-47) % MCV 85.4 (78-100) fl MCH 29.9 (26-32) pg MCHC 35.0 (32-36) g/dl RDW 13.8 (11.5-14.0) % Plt Count 253 (150-450) K/mm3 MPV 11.0 H (6-9.5) fl Gran % 86.4 H (36.0-66.0) % Eos # (Auto) 0.02 (0-0.5) Absolute Lymphs (auto) 1.16 (1.0-4.6) Absolute Monos (auto) 1.50 H (0.0-1.3) Lymphocytes % 5.8 L (24.0-44.0) % Monocytes % 7.6 (0.0-12.0) % Eosinophils % 0.1 (0.00-5.0) % Basophils % 0.1 (0.0-0.4) % Absolute Granulocytes 17.15 H (1.4-6.9) Segmented Neutrophils 86 H (36.0-66.0) % Band Neutrophils 1 (0.0-2.0) % Lymphocytes (Manual) 9 L (24-44) % Monocytes (Manual) 4 (0.0-12.0) % Basophils # 0.02 (0-0.4) Platelet Estimate NORMAL (NORMAL) RBC Morphology NORMAL Sodium 134 L (137-145) mmol/L Potassium 3.0 L (3.5-5.1) mmol/L Chloride 97 L (98-107) mmol/L Carbon Dioxide 27 (22-30) mmol/L Anion Gap 13.3 (5-15) MEQ/L BUN 12 (7-17) mg/dL Creatinine 0.59 (0.52-1.04) mg/dL Estimated GFR > 60.0 ML/MIN Glucose 108 H (74-106) mg/dL Calcium 8.2 L (8.4-10.2) mg/dL Total Bilirubin 1.20 (0.2-1.3) mg/dL AST 67 H (14-36) U/L ALT 50 H (0-35) U/L Alkaline Phosphatase 114 (38-126) U/L Serum Total Protein 5.9 L (6.3-8.2) g/dL Albumin 3.1 L (3.5-5.0) g/dL Amylase < 30 L (30-110) U/L Ur Collection Type VOID Urine Color YELLOW (YELLOW) Urine Appearance CLEAR (CLEAR) Urine pH 6.0 (5-6) Ur Specific [place] 1.010 (1.005-1.025) Urine Protein 1+ (Negative) Urine Ketones MODERATE (NEGATIVE) Urine Blood 250 (0-5) Michael/ul Urine Nitrite NEGATIVE (NEGATIVE) Urine Bilirubin SMALL (NEGATIVE) Urine Urobilinogen 4 (0-1) mg/dL Ur Leukocyte Esterase TRACE (NEGATIVE) Urine Microscopic RBC 0-2 (0-2) /HPF Urine Microscopic WBC 5-10 (0-5) /HPF Ur Epithelial Cells RARE (FEW) /HPF Urine Bacteria FEW (NEGATIVE) /HPF Urine Culture Reflexed YES (NO) Urine Glucose NEGATIVE (NEGATIVE) mg/dL Stool Occult Blood (Negative) Specimen Received 08/02/17 1529 08/02/17 Range/Units Unknown WBC (4.0-10.5) K/mm3 RBC (4.1-5.4) M/mm3 Hgb (12.0-16.0) gm/dl Hct (35-47) % MCV (78-100) fl MCH (26-32) pg MCHC (32-36) g/dl RDW (11.5-14.0) % Plt Count (150-450) K/mm3 MPV (6-9.5) fl Gran % (36.0-66.0) % Eos # (Auto) (0-0.5) Absolute Lymphs (auto) (1.0-4.6) Absolute Monos (auto) (0.0-1.3) Lymphocytes % (24.0-44.0) % Monocytes % (0.0-12.0) % Eosinophils % (0.00-5.0) % Basophils % (0.0-0.4) % Absolute Granulocytes (1.4-6.9) Segmented Neutrophils (36.0-66.0) % Band Neutrophils (0.0-2.0) % Lymphocytes (Manual) (24-44) % Monocytes (Manual) (0.0-12.0) % Basophils # (0-0.4) Platelet Estimate (NORMAL) RBC Morphology Sodium (137-145) mmol/L Potassium (3.5-5.1) mmol/L Chloride (98-107) mmol/L Carbon Dioxide (22-30) mmol/L Anion Gap (5-15) MEQ/L BUN (7-17) mg/dL Creatinine (0.52-1.04) mg/dL Estimated GFR ML/MIN Glucose (74-106) mg/dL Calcium (8.4-10.2) mg/dL Total Bilirubin (0.2-1.3) mg/dL AST (14-36) U/L ALT (0-35) U/L Alkaline Phosphatase (38-126) U/L Serum Total Protein (6.3-8.2) g/dL Albumin (3.5-5.0) g/dL Amylase (30-110) U/L Ur Collection Type Urine Color (YELLOW) Urine Appearance (CLEAR) Urine pH (5-6) Ur Specific [place] (1.005-1.025) Urine Protein (Negative) Urine Ketones (NEGATIVE) Urine Blood (0-5) Michael/ul Urine Nitrite (NEGATIVE) Urine Bilirubin (NEGATIVE) Urine Urobilinogen (0-1) mg/dL Ur Leukocyte Esterase (NEGATIVE) Urine Microscopic RBC (0-2) /HPF Urine Microscopic WBC (0-5) /HPF Ur Epithelial Cells (FEW) /HPF Urine Bacteria (NEGATIVE) /HPF Urine Culture Reflexed (NO) Urine Glucose (NEGATIVE) mg/dL Stool Occult Blood NEGATIVE (Negative) Specimen Received Radiology Exams: Radiology Procedures Category Date Time Status CHEST 1 VIEW (PORTABLE) Urgent Exams 08/03/17 10:11 Taken OBSTR/ACUTE ABDOMEN SERIES Stat Exams 08/02/17 14:40 Completed Multi-Disciplinary Progress Notes: Multi-Disciplinary Progress Notes 08/03/17 10:27 Case Management Note by Kami Ordaz REFERRAL CALLED TO [facility] [place]. FAXED INFORMATION . Initialized on 08/03/17 10:27 - END OF NOTE 08/03/17 09:25 (created 08/03/17 10:25) Case Management Note by Kami Ordaz DISCHARGE PLAN REVIEWED WITH PT. REPORTS THAT SHE IS PLANNING TO GO FOR A REHAB STAY ON DISCHARGE. REPORTS THAT HER PREFERENCE WOULD BE TO GO TO [facility] [place]. THIS FACILITY IS CLOSER TO HER HOME, FRIENDS, AND FAMILY. DENIES ADDNL NEEDS AT PRESENT. WILL FOLLOW. Initialized on 08/03/17 10:25 - END OF NOTE Assessment/Plan (1) Pneumonia Current Visit: Yes Status: Acute Onset Date: ~08/03/17 Qualifiers: Pneumonia type: due to unspecified organism Laterality: unspecified laterality Lung location: unspecified part of lung Qualified Code(s): J18.9 - Pneumonia, unspecified organism Code(s): J18.9 - PNEUMONIA, UNSPECIFIED ORGANISM (2) Hypokalemia Current Visit: Yes Status: Acute Onset Date: ~08/03/17 Code(s): E87.6 - HYPOKALEMIA (3) Vomiting and diarrhea Current Visit: Yes Status: Resolved Onset Date: ~08/03/17 Code(s): R11.10 - VOMITING, UNSPECIFIED; R19.7 - DIARRHEA, UNSPECIFIED (4) Abdominal pain Current Visit: Yes Status: Resolved Onset Date: ~08/03/17 Qualifiers: Abdominal location: generalized Qualified Code(s): R10.84 - Generalized abdominal pain Code(s): R10.9 - UNSPECIFIED ABDOMINAL PAIN (5) Diabetes mellitus type 2 Current Visit: Yes Status: Chronic Code(s): E11.9 - TYPE 2 DIABETES MELLITUS WITHOUT COMPLICATIONS (6) Hypertension Current Visit: Yes Status: Chronic Qualifiers: Hypertension type: essential hypertension Qualified Code(s): I10 - Essential (primary) hypertension Code(s): I10 - ESSENTIAL (PRIMARY) HYPERTENSION
--- NOTE | 2017-08-03 10:51 | XRAY ---
Indication: Short of breath. Pneumonia. Comparison: One day earlier. Portable chest demonstrates slight worsening diffuse right lung and left upper lung interstitial alveolar opacities that can be better evaluated with CT. Heart is not enlarged with stable left Port-A-Cath. Stable postsurgical changes.
[2017-08-03] MEDS: Miralax Powder 17GM PACKET PO SCH (16:28)
[2017-08-03] MEDS: Lantus Insulin SQ SCH (22:01)
[2017-08-04] MEDS: DUONEB 0.5-3 MG/3 ml Neb IH SCH ×4 (04:54→18:46)
[2017-08-04] MEDS: Zofran 4 MG/2 ML VIAL IV PRN ×2 (05:26→11:00)
[2017-08-04] MEDS: PERCOCET TABLET 5/325MG PO PRN ×2 (05:26→19:40)
[2017-08-04] MEDS: Advair Hfa 115/21 Common canister IH SCH ×2 (07:31→18:47)
[2017-08-04] MEDS: Phenergan 25 MG INJ IV PRN (07:51)
[2017-08-04] MEDS: Sodium Chloride 0.9% W/ 20 mEq KCl/LITER 1,000 ML IV SCH (07:51)
--- NOTE | 2017-08-04 09:02 | PCM.NOTE ---
Date and Time: 08/04/17 0859 Subjective Assessment: c/o abdominal pain, shortness of breath - Review of Systems Constitutional: No Fever, No Chills Eyes: No Symptoms Ears, Nose, & Throat: No Symptoms Respiratory: Short Of Breath, No Cough Cardiac: No Chest Pain, No Edema, No Syncope Abdominal/Gastrointestinal: Abdominal Pain, No Nausea, No Vomiting, No Diarrhea Genitourinary Symptoms: No Dysuria Musculoskeletal: No Back Pain, No Neck Pain Skin: No Rash Neurological: No Dizziness, No Focal Weakness, No Sensory Changes Psychological: No Symptoms Endocrine: No Symptoms Hematologic/Lymphatic: No Symptoms Immunological/Allergic: No Symptoms Objective Exam General Appearance: no apparent distress, alert Neurologic Exam: alert, oriented x 3, cooperative, normal mood/affect, nml cerebellar function, sensation nml, No motor deficits Skin Exam: normal color, warm, dry Eye Exam: PERRL, EOMI, eyes nml inspection Ears, Nose, Throat Exam: normal ENT inspection, pharynx normal, moist mucous membranes Neck Exam: normal inspection, non-tender, supple, full range of motion Respiratory Exam: normal breath sounds, lungs clear, No respiratory distress Cardiovascular Exam: regular rate/rhythm, normal heart sounds Gastrointestinal/Abdomen Exam: soft, tenderness, No mass Extremity Exam: normal inspection, normal range of motion Back Exam: normal inspection, normal range of motion, No CVA tenderness, No vertebral tenderness Pelvic Exam: deferred Rectal Exam: deferred OBJECTIVE DATA Vital Signs: Vital Signs - 24 hr Temp Pulse Resp BP Pulse Ox 08/04/17 07:31 88 22 84 L 08/04/17 07:09 98.1 F 89 20 145/67 95 08/04/17 04:15 98.2 F 91 H 24 121/58 91 L 08/03/17 23:32 99.8 F 88 18 130/61 93 L 08/03/17 20:10 98.1 F 92 H 20 140/65 96 08/03/17 19:00 90 22 93 L 08/03/17 16:00 98.6 F 88 21 128/58 94 L 08/03/17 12:30 92 H 22 92 L 08/03/17 12:00 97.5 F 93 H 20 140/66 91 L Oxygen-Last 24 hours O2 Percentage 2 Liters = 28% O2 Percentage 2 Liters = 28% O2 Percentage 2 Liters = 28% O2 Percentage 2 Liters = 28% O2 Percentage 2 Liters = 28% O2 Percentage 2 Liters = 28% Pain Assessment - Last Documented Pain Intensity 6 Pain Scale Used 0-10 Pain Scale Intake and Output: Intake & Output 08/01/17 08/02/17 08/03/17 08/04/17 11:59 11:59 11:59 11:59 Intake Total 1985 3826 Output Total 500 500 Balance 1485 3326 Weight 100 kg Lab Results: Accuchecks Date 08/04/17 Date 08/03/17 Date 08/03/17 Time 08:23 Time 16:30 Time 11:30 Accucheck Value: 105 Accucheck Value: 135 Accucheck Value: 118 Accucheck Value: 115 Radiology Exams: Radiology Procedures Category Date Time Status CHEST 1 VIEW (PORTABLE) Urgent Exams 08/03/17 10:11 Completed OBSTR/ACUTE ABDOMEN SERIES Stat Exams 08/02/17 14:40 Completed Multi-Disciplinary Progress Notes: Multi-Disciplinary Progress Notes 08/03/17 13:00 (created 08/03/17 14:38) Case Management Note by Stormy Dickens PASRR PAPERS COMPLETED AT THIS TIME, NO LEVEL11 REQUIRED. PASRR PAPERS FAXED TO [facility] AND PLACED ON CHART. Initialized on 08/03/17 14:38 - END OF NOTE 08/03/17 10:27 Case Management Note by Kami Ordaz REFERRAL CALLED TO [facility]. FAXED INFORMATION [phone]. Initialized on 08/03/17 10:27 - END OF NOTE 08/03/17 09:25 (created 08/03/17 10:25) Case Management Note by Kami Ordaz DISCHARGE PLAN REVIEWED WITH PT. REPORTS THAT SHE IS PLANNING TO GO FOR A REHAB STAY ON DISCHARGE. REPORTS THAT HER PREFERENCE WOULD BE TO GO TO [facility]. THIS FACILITY IS CLOSER TO HER HOME, FRIENDS, AND FAMILY. DENIES ADDNL NEEDS AT PRESENT. WILL FOLLOW. Initialized on 08/03/17 10:25 - END OF NOTE Assessment/Plan (1) Abdominal pain Current Visit: Yes Status: Resolved Onset Date: ~08/03/17 Qualifiers: Abdominal location: generalized Qualified Code(s): R10.84 - Generalized abdominal pain Code(s): R10.9 - UNSPECIFIED ABDOMINAL PAIN (2) Pneumonia Current Visit: Yes Status: Acute Onset Date: ~08/03/17 Qualifiers: Pneumonia type: due to unspecified organism Laterality: unspecified laterality Lung location: unspecified part of lung Qualified Code(s): J18.9 - Pneumonia, unspecified organism Code(s): J18.9 - PNEUMONIA, UNSPECIFIED ORGANISM (3) Hypokalemia Current Visit: Yes Status: Resolved Onset Date: ~08/03/17 Code(s): E87.6 - HYPOKALEMIA (4) Vomiting and diarrhea Current Visit: Yes Status: Resolved Onset Date: ~08/03/17 Code(s): R11.10 - VOMITING, UNSPECIFIED; R19.7 - DIARRHEA, UNSPECIFIED (5) Diabetes mellitus type 2 Current Visit: Yes Status: Chronic Code(s): E11.9 - TYPE 2 DIABETES MELLITUS WITHOUT COMPLICATIONS (6) Hypertension Current Visit: Yes Status: Chronic Qualifiers: Hypertension type: essential hypertension Qualified Code(s): I10 - Essential (primary) hypertension Code(s): I10 - ESSENTIAL (PRIMARY) HYPERTENSION
[2017-08-04] MEDS: Zithromax 500 MG/ 250 ML NaCl Premix 500 MG/250 ML IVPB IV SCH (09:37)
[2017-08-04 10:46] LABS: Hematocrit 38.9 % (35-47); Hemoglobin 13.2 gm/dl (12.0-16.0); Mean Cell Volume 88.2 fl (78-100); Mean Corpuscular Hemoglobin 29.9 pg (26-32); Mean Corpuscular Hgb Concent. 33.9 g/dl (32-36); Mean Platelet Volume 10.7 fl (6-9.5); Platelet Count 275 K/mm3 (150-450); Red Blood Count 4.41 M/mm3 (4.1-5.4); Red Cell Distribution Width 14.4 % (11.5-14.0); White Blood Count 15.7 K/mm3 (4.0-10.5)
[2017-08-04] MEDS: Klor Con 10 MEQ PO SCH ×2 (10:53→22:03)
[2017-08-04] MEDS: Prozac 20 MG PO SCH (10:53)
[2017-08-04] MEDS: COREG 12.5 MG PO SCH ×2 (10:53→22:03)
[2017-08-04] MEDS: NORVASC 5 MG PO SCH (10:53)
[2017-08-04] MEDS: Zestril 10 MG PO SCH ×2 (10:53→22:03)
[2017-08-04] MEDS: CLARITIN 10 MG PO SCH (10:54)
[2017-08-04] MEDS: Protonix 40MG Tablet PO SCH (10:54)
[2017-08-04] MEDS: SYNTHROID 25 MCG PO SCH (10:54)
[2017-08-04] MEDS: Flonase NASAL NS SCH (10:54)
[2017-08-04] MEDS: Miralax Powder 17GM PACKET PO SCH (10:55)
[2017-08-04 11:00] LABS: ALBUMIN 2.5 g/dL (3.5-5.0); ALKALINE PHOSPHATASE 130 U/L (38-126); ANION GAP 10.1 MEQ/L (5-15); BLOOD UREA NITROGEN 9 mg/dL (7-17); CHLORIDE 104 mmol/L (98-107); Calcium 7.5 mg/dL (8.4-10.2); Carbon Dioxide 25 mmol/L (22-30); Creatinine 1 0.75 mg/dL (0.52-1.04); Glucose 152 mg/dL (74-106); SGOT/AST 67 U/L (14-36); SGPT/ALT 46 U/L (0-35); SODIUM 136 mmol/L (137-145); Total Protein 5.2 g/dL (6.3-8.2)
[2017-08-04] MEDS ORDERED: PROTONIX 40 MG IV IV SCH (16:30)
[2017-08-04] MEDS: Pepcid 20 MG VIAL IV SCH (16:38)
[2017-08-04] MEDS ORDERED: Pepcid 20 MG VIAL IV ONE (18:02)
[2017-08-04] MEDS: Lantus Insulin SQ SCH (22:00)
[2017-08-04] MEDS ORDERED: Pepcid 20 MG VIAL IV SCH (22:00)
[2017-08-05] MEDS: PERCOCET TABLET 5/325MG PO PRN (03:50)
[2017-08-05] MEDS: DUONEB 0.5-3 MG/3 ml Neb IH SCH ×3 (04:01→12:42)
[2017-08-05] MEDS: Advair Hfa 115/21 Common canister IH SCH (07:17)
[2017-08-05] MEDS: Zithromax 500 MG/ 250 ML NaCl Premix 500 MG/250 ML IVPB IV SCH (09:08)
[2017-08-05] MEDS: Miralax Powder 17GM PACKET PO SCH (09:08)
[2017-08-05] MEDS: Sodium Chloride 0.9% W/ 20 mEq KCl/LITER 1,000 ML IV SCH (09:08)
[2017-08-05] MEDS: Prozac 20 MG PO SCH (09:09)
[2017-08-05] MEDS: Zestril 10 MG PO SCH (09:09)
[2017-08-05] MEDS: Pepcid 20 MG VIAL IV SCH (09:09)
[2017-08-05] MEDS: NORVASC 5 MG PO SCH (09:09)
[2017-08-05] MEDS: SYNTHROID 25 MCG PO SCH (09:09)
[2017-08-05] MEDS: CLARITIN 10 MG PO SCH (09:09)
[2017-08-05] MEDS: Flonase NASAL NS SCH (09:10)
[2017-08-05] MEDS: COREG 12.5 MG PO SCH (09:10)
[2017-08-05] MEDS: Klor Con 10 MEQ PO SCH (09:10)
--- NOTE | 2017-08-05 09:24 | PCM.NOTE ---
Date and Time: 08/05/17922 Subjective Assessment: doing ok - Review of Systems Constitutional: No Fever, No Chills Eyes: No Symptoms Ears, Nose, & Throat: No Symptoms Respiratory: Cough, Orthopnea, Short Of Breath Cardiac: No Chest Pain, No Edema, No Syncope Abdominal/Gastrointestinal: No Abdominal Pain, No Nausea, No Vomiting, No Diarrhea Genitourinary Symptoms: No Dysuria Musculoskeletal: No Back Pain, No Neck Pain Skin: No Rash Neurological: No Dizziness, No Focal Weakness, No Sensory Changes Psychological: No Symptoms Endocrine: No Symptoms Hematologic/Lymphatic: No Symptoms Immunological/Allergic: No Symptoms Objective Exam General Appearance: no apparent distress, alert Neurologic Exam: alert, oriented x 3, cooperative, normal mood/affect, nml cerebellar function, sensation nml, No motor deficits Skin Exam: normal color, warm, dry Eye Exam: PERRL, EOMI, eyes nml inspection Ears, Nose, Throat Exam: normal ENT inspection, pharynx normal, moist mucous membranes Neck Exam: normal inspection, non-tender, supple, full range of motion Respiratory Exam: normal breath sounds, diminished breath sounds, crackles/rales , rhonchi, wheezing, No respiratory distress Cardiovascular Exam: regular rate/rhythm, normal heart sounds Gastrointestinal/Abdomen Exam: soft, No tenderness, No mass Extremity Exam: normal inspection, normal range of motion Back Exam: normal inspection, normal range of motion, No CVA tenderness, No vertebral tenderness Pelvic Exam: deferred Rectal Exam: deferred OBJECTIVE DATA Vital Signs: Vital Signs - 24 hr Temp Pulse Resp BP Pulse Ox 08/05/17 07:15 86 20 95 08/05/17 07:04 98.7 F 87 20 137/65 95 08/05/17 04:17 99.4 F 91 H 18 145/68 93 L 08/05/17 04:00 20 08/05/17 01:00 90 22 94 L 08/05/17 00:00 20 08/04/17 23:47 98.5 F 92 H 24 131/61 93 L 08/04/17 20:11 98.9 F 90 22 150/70 94 L 08/04/17 19:54 22 08/04/17 18:51 92 H 24 91 L 08/04/17 16:00 100.4 F 93 H 17 144/69 90 L 08/04/17 15:01 20 08/04/17 13:21 91 H 22 92 L 08/04/17 12:49 98.4 F 08/04/17 12:00 18 08/04/17 11:04 98 F 90 20 148/70 95 Oxygen-Last 24 hours O2 Percentage 2 Liters = 28% O2 Percentage 2 Liters = 28% O2 Percentage 2 Liters = 28% O2 Percentage 2 Liters = 28% O2 Percentage 2 Liters = 28% O2 Percentage 2 Liters = 28% O2 Percentage 2 Liters = 28% Pain Assessment - Last Documented Pain Intensity 0 Pain Scale Used 0-10 Pain Scale Intake and Output: Intake & Output 08/02/17 08/03/17 08/04/17 08/05/17 11:59 11:59 11:59 11:59 Intake Total 1985 3826 919 Output Total 500 900 900 Balance 5530 2926 19 Weight 100 kg Lab Results: Accuchecks Date 08/04/17 Date 08/04/17 Date 08/04/17 Time 22:33 Time 16:30 Time 11:30 Accucheck Value: 93 Accucheck Value: 111 Accucheck Value: 122 Accucheck Value: 131 Lab Results-Last 24 Hours 08/04/17 08/04/17 Range/Units 10:34 10:34 WBC 15.7 H (4.0-10.5) K/mm3 RBC 4.41 (4.1-5.4) M/mm3 Hgb 13.2 (12.0-16.0) gm/dl Hct 38.9 (35-47) % MCV 88.2 (78-100) fl MCH 29.9 (26-32) pg MCHC 33.9 (32-36) g/dl RDW 14.4 H (11.5-14.0) % Plt Count 275 (150-450) K/mm3 MPV 10.7 H (6-9.5) fl Sodium 136 L (137-145) mmol/L Potassium 4.0 (3.5-5.1) mmol/L Chloride 104 (98-107) mmol/L Carbon Dioxide 25 (22-30) mmol/L Anion Gap 10.1 (5-15) MEQ/L BUN 9 (7-17) mg/dL Creatinine 0.75 (0.52-1.04) mg/dL Estimated GFR > 60.0 ML/MIN Glucose 152 H (74-106) mg/dL Calcium 7.5 L (8.4-10.2) mg/dL Total Bilirubin 0.80 (0.2-1.3) mg/dL AST 67 H (14-36) U/L ALT 46 H (0-35) U/L Alkaline Phosphatase 130 H (38-126) U/L Serum Total Protein 5.2 L (6.3-8.2) g/dL Albumin 2.5 L (3.5-5.0) g/dL Radiology Exams: Radiology Procedures Category Date Time Status CHEST 1 VIEW (PORTABLE) Urgent Exams 08/03/17 10:11 Completed Assessment/Plan (1) Abdominal pain Current Visit: Yes Status: Resolved Onset Date: ~08/03/17 Qualifiers: Abdominal location: generalized Qualified Code(s): R10.84 - Generalized abdominal pain Code(s): R10.9 - UNSPECIFIED ABDOMINAL PAIN (2) Pneumonia Current Visit: Yes Status: Acute Onset Date: ~08/03/17 Qualifiers: Pneumonia type: due to unspecified organism Laterality: unspecified laterality Lung location: unspecified part of lung Qualified Code(s): J18.9 - Pneumonia, unspecified organism Code(s): J18.9 - PNEUMONIA, UNSPECIFIED ORGANISM (3) Hypokalemia Current Visit: Yes Status: Resolved Onset Date: ~08/03/17 Code(s): E87.6 - HYPOKALEMIA (4) Vomiting and diarrhea Current Visit: Yes Status: Resolved Onset Date: ~08/03/17 Code(s): R11.10 - VOMITING, UNSPECIFIED; R19.7 - DIARRHEA, UNSPECIFIED (5) Diabetes mellitus type 2 Current Visit: Yes Status: Chronic Code(s): E11.9 - TYPE 2 DIABETES MELLITUS WITHOUT COMPLICATIONS (6) Hypertension Current Visit: Yes Status: Chronic Qualifiers: Hypertension type: essential hypertension Qualified Code(s): I10 - Essential (primary) hypertension Code(s): I10 - ESSENTIAL (PRIMARY) HYPERTENSION
--- NOTE | 2017-08-05 09:58 | PCM.DS ---
Discharge Summary Date of Admission: 08/02/17 18:00 Admitting Physician: REBECCA GALVEZ Primary Care Provider: REBECCA GALVEZ Allergies Allergies doxycycline Allergy (Intermediate, Verified 08/02/17 14:33) Swelling Iodinated Contrast- Oral and IV Dye Allergy (Intermediate, Verified 08/02/17 14: 33) Hives hives, rash, diff breathing belladonna alkaloids [From B & O 16-A Supprette] Allergy (Mild, Verified 14:33) CHILD ALLERGY cephalexin monohydrate [From Keflex] Allergy (Mild, Verified 08/02/17 14:33) Hives furosemide [From Lasix] Allergy (Mild, Verified 08/02/17 14:33) HEART ARTHYM prochlorperazine edisylate [From Compazine] Allergy (Mild, Verified 08/02/17 14: 33) HALLUCINATIONS prochlorperazine maleate [From Compazine] Allergy (Mild, Verified 08/02/17 14:33 ) HALLUCINATIONS Sulfa (Sulfonamide Antibiotics) [Sulfa(Sulfonamide Antibiotics)] Allergy (Mild, Verified 08/02/17 14:33) Hives codeine [Codeine] Adverse Reaction (Mild, Verified 08/02/17 14:33) Headache hydrocodone bitartrate [From Vicodin] Adverse Reaction (Mild, Verified 08/02/17 14:33) Headache ketorolac tromethamine [From Toradol] Adverse Reaction (Mild, Verified 08/02/17 14:33) Vomiting metformin HCl [From Glucophage] Adverse Reaction (Mild, Verified 08/02/17 14:33) Vomiting naproxen [From Naprosyn] Adverse Reaction (Mild, Verified 08/02/17 14:33) Headache opium *RETIRED-06/05/12 [From B & O 16-A Supprette] Adverse Reaction (Mild, Verified 08/02/17 14:33) DON'T LIKE THEM phenytoin sodium [From Dilantin] Adverse Reaction (Mild, Verified 08/02/17 14:33 ) FEEL DRUNK phenytoin sodium extended [From Dilantin] Adverse Reaction (Mild, Verified 08/02 14:33) FEEL DRUNK Lactobacillus acidophilus [From Acidophilus] Adverse Reaction (Verified 14:33) diuretics Allergy (Intermediate, Uncoded 08/02/17 14:33) HEART ARRHYTHMIAS pt states she is allergic to all diuretics. pt has cardiac arrhythmias influenza vaccine Adverse Reaction (Uncoded 08/02/17 14:33) Hospital Summary - Hospital Course Hospital Course: Chief Complaint Diagnosis Pneumonia, hypokalemia, abd pain, vomiting, diarrhea Allergies Allergy/AdvReac Type Severity Reaction Status Date / Time doxycycline Allergy Intermediate Swelling Verified 08/02/17 14:33 Iodinated Contrast- Oral and Allergy Intermediate Hives Verified 08/02/17 14:33 IV Dye belladonna alkaloids Allergy Mild CHILD Verified 08/02/17 14:33 [From B & O 16-A Supprette] ALLERGY cephalexin monohydrate Allergy Mild Hives Verified 08/02/17 14:33 [From Keflex] furosemide [From Lasix] Allergy Mild HEART Verified 08/02/17 14:33 ARTHYM prochlorperazine edisylate Allergy Mild HALLUCINATI Verified 08/02/17 14:33 [From Compazine] ONS prochlorperazine maleate Allergy Mild HALLUCINATI Verified 08/02/17 14:33 [From Compazine] ONS Sulfa (Sulfonamide Allergy Mild Hives Verified 08/02/17 14:33 Antibiotics) [Sulfa(Sulfonamide Antibiotics)] codeine [Codeine] AdvReac Mild Headache Verified 08/02/17 14:33 hydrocodone bitartrate AdvReac Mild Headache Verified 08/02/17 14:33 [From Vicodin] ketorolac tromethamine AdvReac Mild Vomiting Verified 08/02/17 14:33 [From Toradol] metformin HCl AdvReac Mild Vomiting Verified 08/02/17 14:33 [From Glucophage] naproxen [From Naprosyn] AdvReac Mild Headache Verified 08/02/17 14:33 opium *RETIRED-06/05/12 AdvReac Mild DON'T LIKE Verified 08/02/17 14:33 [From B & O 16-A Supprette] THEM phenytoin sodium AdvReac Mild FEEL DRUNK Verified 08/02/17 14:33 [From Dilantin] phenytoin sodium extended AdvReac Mild FEEL DRUNK Verified 08/02/17 14:33 [From Dilantin] Lactobacillus acidophilus AdvReac Verified 08/02/17 14:33 [From Acidophilus] diuretics Allergy Intermediate HEART Uncoded 08/02/17 14:33 ARRHYTHMIAS influenza vaccine AdvReac Uncoded 08/02/17 14:33 Vital Signs (Last 24 hours) Temp Pulse Resp BP Pulse Ox 08/05/17 07:15 86 20 95 08/05/17 07:04 98.7 F 87 20 137/65 95 08/05/17 04:17 99.4 F 91 H 18 145/68 93 L 08/05/17 04:00 20 08/05/17 01:00 90 22 94 L 08/05/17 00:00 20 08/04/17 23:47 98.5 F 92 H 24 131/61 93 L 08/04/17 20:11 98.9 F 90 22 150/70 94 L 08/04/17 19:54 22 08/04/17 18:51 92 H 24 91 L 08/04/17 16:00 100.4 F 93 H 17 144/69 90 L 08/04/17 15:01 20 08/04/17 13:21 91 H 22 92 L 08/04/17 12:49 98.4 F 08/04/17 12:00 18 08/04/17 11:04 98 F 90 20 148/70 95 Home Medications Medication Instructions Recorded Confirmed Last Taken Type Clindamycin HCl [Cleocin HCl] 150 mg PO QID 08/02/17 08/02/17 07/31/17 History Morphine Sulfate 5 mg PO Q2H/PRN PRN 08/02/17 08/02/17 07/28/17 History Oxycodone HCl/Acetaminophen 1 each PO Q4HPRN PRN 08/02/17 08/02/17 07/28/17 History [Oxycodone-Acetaminophen 5-325] Current Medications Generic Name Dose Route Start Last Admin Trade Name Freq PRN Reason Stop Dose Admin Albuterol/Ipratropium 3 ml 08/02/17 19:00 08/05/17 07:15 Duoneb 0.5-3 Mg/3 Ml Neb IH 09/01/17 18:59 3 ml Q6HRT ANDREW Administration Amlodipine Besylate 2.5 mg 08/03/17 10:00 08/05/17 09:09 Norvasc 5 Mg PO 09/02/17 09:59 2.5 mg DAILY ANDREW Administration Carvedilol 12.5 mg 08/02/17 22:30 08/05/17 09:10 Coreg 12.5 Mg PO 09/01/17 22:29 12.5 mg BID ANDREW Administration Famotidine 20 mg 08/04/17 19:38 08/05/17 09:09 Pepcid 20 Mg Vial IV 09/03/17 15:59 20 mg Q12HT ANDREW Administration Fluoxetine HCl 20 mg 08/03/17 10:00 08/05/17 09:09 Prozac 20 Mg PO 09/02/17 09:59 20 mg DAILY ANDREW Administration Fluticasone Propionate 0 gm 08/03/17 10:00 08/05/17 09:10 Flonase Nasal NS 09/02/17 09:59 16 gm DAILY ANDREW Administration Potassium Chloride/Sodium Chloride 1,000 mls @ 20 mls/hr 08/02/17 15:45 08/05 09:08 Sodium Chloride 0.9% W/ 20 Meq Kcl/Liter IV 09/01/17 15:44 100 mls/hr .Q24H ANDREW Administration Azithromycin 500 mg in 250 mls @ 250 mls/hr 08/03/17 10:00 08/05/17 09:08 Zithromax 500 Mg/ 250 Ml Nacl Premix IV 09/02/17 09:59 250 mls/hr Q24H10 ANDREW Administration Insulin Glargine 35 unit 08/02/17 22:30 08/04/17 22:00 Lantus Insulin SQ 09/01/17 22:29 Not Given HS ANDREW Levothyroxine Sodium 25 mcg 08/03/17 10:00 08/05/17 09:09 Synthroid 25 Mcg PO 09/02/17 09:59 25 mcg DAILY ANDREW Administration Lisinopril 10 mg 08/02/17 22:30 08/05/17 09:09 Zestril 10 Mg PO 09/01/17 22:29 10 mg BID ANDREW Administration Loratadine 10 mg 08/03/17 10:00 08/05/17 09:09 Claritin 10 Mg PO 09/02/17 09:59 10 mg DAILY ANDREW Administration Nitroglycerin 0.4 mg 08/02/17 22:23 Nitrostat 0.4 Mg Tablet SL 07/21/18 22:22 Q5MIN PRN MR X 3 PRN CHEST PAIN Ondansetron HCl 4 mg 08/02/17 22:11 08/04/17 11:00 Zofran 4 Mg/2 Ml Vial IV 09/01/17 22:10 4 mg Q6H PRN PRN Administration NAUSEA/VOMITING Ondansetron HCl 4 mg 08/02/17 22:23 Zofran Odt 4 Mg PO 09/01/17 22:22 Q6H PRN PRN NAUSEA/VOMITING Oxycodone/Acetaminophen 1 tab 08/02/17 22:02 08/05/17 03:50 Percocet Tablet 5/325mg PO 08/07/17 22:01 1 tab Q4H PRN PRN Administration PAIN Pantoprazole Sodium 40 mg 08/05/17 10:00 08/05/17 09:09 Protonix 40 Mg Iv IV 09/04/17 09:59 40 mg Q24H ANDREW Administration Polyethylene Glycol 17 gm 08/03/17 16:00 08/05/17 09:08 Miralax Powder 17gm Packet PO 09/02/17 15:59 17 gm DAILY ANDREW Administration Potassium Chloride 20 meq 08/02/17 22:30 08/05/17 09:10 Klor Con 10 Meq PO 09/01/17 22:29 20 meq BID ANDREW Administration Promethazine HCl 12.5 mg 08/02/17 23:53 08/04/17 07:51 Phenergan 25 Mg Inj IV 09/01/17 23:52 12.5 mg Q6H PRN PRN Administration NAUSEA/VOMITING Fluticasone/Salmeterol 2 puff 08/02/17 19:00 08/05/17 07:17 Advair Hfa 115/21 Common Canister* IH 09/01/17 18:59 2 puff BIDRT ANDREW Administration Discontinued Medications Generic Name Dose Route Start Last Admin Trade Name Freq PRN Reason Stop Dose Admin Acetaminophen 650 mg 08/02/17 15:02 08/02/17 15:10 Tylenol 325 Mg PO 08/02/17 15:03 650 mg STAT STA Administration Acetaminophen Confirm 08/02/17 15:03 Tylenol 325 Mg Administered 08/02/17 15:04 Dose 650 mg .ROUTE .STK-MED ONE Clindamycin HCl 150 mg 08/02/17 23:00 08/03/17 08:30 Cleocin 150 Mg Capsule PO 09/01/17 22:59 150 mg QID ANDREW Administration Famotidine 20 mg 08/04/17 22:00 Pepcid 20 Mg Vial IV 09/03/17 21:59 Q12HT [facility] Famotidine Confirm 08/04/17 18:02 Pepcid 20 Mg Vial Administered 08/04/17 18:03 Dose 20 mg IV .STK-MED ONE Sodium Chloride 1,000 mls @ 250 mls/hr 08/02/17 14:40 08/02/17 14:52 Sodium Chloride 0.9% 1000 Ml IV 08/02/17 18:39 250 mls/hr .Q4H STA Administration Sodium Chloride Confirm 08/02/17 14:50 Sodium Chloride 0.9% 1000 Ml Administered 08/02/17 14:51 Dose 1,000 mls @ ud .ROUTE .STK-MED ONE Potassium Chloride/Sodium Chloride Confirm 08/02/17 15:30 Sodium Chloride 0.9% W/ 20 Meq Kcl/Liter Administered 08/02/17 15:31 Dose 1,000 mls @ ud IV .STK-MED ONE Azithromycin 500 mg in 250 mls @ 250 mls/hr 08/02/17 16:25 08/02/17 17:11 Zithromax 500 Mg/ 250 Ml Nacl Premix IV 08/02/17 17:24 250 mls/hr STAT STA 250 mls/hr Administration Azithromycin Confirm 08/02/17 17:02 Zithromax 500 Mg/ 250 Ml Nacl Premix Administered 08/02/17 17:03 Dose 500 mg in 250 mls @ ud IV .STK-MED ONE Miscellaneous Information 1 each 08/03/17 07:15 Medication Intervention 09/02/17 07:14 .RN TO CHECK WITH MD MORALES Ondansetron HCl 4 mg 08/02/17 14:40 08/02/17 14:51 Zofran 4 Mg/2 Ml Vial IV 08/02/17 14:41 4 mg STAT ONE Administration Ondansetron HCl Confirm 08/02/17 14:50 Zofran 4 Mg/2 Ml Vial Administered 08/02/17 14:51 Dose 4 mg .ROUTE .STK-MED ONE Pantoprazole Sodium 40 mg 08/02/17 14:40 08/02/17 14:51 Protonix 40 Mg Iv IV 08/02/17 14:41 40 mg STAT ONE Administration Pantoprazole Sodium Confirm 08/02/17 14:50 Protonix 40 Mg Iv Administered 08/02/17 14:51 Dose 40 mg IV .STK-MED ONE Pantoprazole Sodium 40 mg 08/03/17 10:00 08/04/17 10:54 Protonix 40mg Tablet PO 09/02/17 09:59 40 mg DAILY ANDREW Administration Pantoprazole Sodium 40 mg 08/04/17 16:30 08/04/17 19:49 Protonix 40 Mg Iv IV 09/03/17 16:29 Not Given Q24H ANDREW Intake & Output (Last 24 hours) 08/02/17 08/03/17 08/04/17 08/05/17 11:59 11:59 11:59 11:59 Intake Total 1985 3826 919 Output Total 500 900 900 Balance 1485 2926 19 Weight 100 kg Microbiology Results (Last 24 hours) 08/02/17 15:29 Urine, Catheterized Urine Culture - Final NO GROWTH Laboratory Results (Last 24 hours) 08/04/17 08/04/17 10:34 10:34 WBC 15.7 H RBC 4.41 Hgb 13.2 Hct 38.9 MCV 88.2 MCH 29.9 MCHC 33.9 RDW 14.4 H Plt Count 275 MPV 10.7 H Sodium 136 L Potassium 4.0 Chloride 104 Carbon Dioxide 25 Anion Gap 10.1 BUN 9 Creatinine 0.75 Estimated GFR > 60.0 Glucose 152 H Calcium 7.5 L Total Bilirubin 0.80 AST 67 H ALT 46 H Alkaline Phosphatase 130 H Serum Total Protein 5.2 L Albumin 2.5 L Orders (Last 24 hours) Category Date Time Status CBC Urgent Lab 08/04/17 10:34 Completed CMP Urgent Lab 08/04/17 10:34 Completed Famotidine 20 mg Vial [Pepcid 20 MG VIAL] Med 08/04/17 18:02 Discontinued 20 mg IV .STK-MED ONE Famotidine 20 mg Vial [Pepcid 20 MG VIAL] Med 08/04/17 19:38 Active 20 mg IV Q12HT Famotidine 20 mg Vial [Pepcid 20 MG VIAL] Med 08/04/17 22:00 Discontinued 20 mg IV Q12HT Pantoprazole 40 mg [Protonix 40 mg IV] Med 08/04/17 16:30 Discontinued 40 mg IV Q24H Pantoprazole 40 mg [Protonix 40 mg IV] Med 08/05/17 10:00 Active 40 mg IV Q24H Patient Care Notes (Last 24 hours) 08/04/17 16:40 (created 08/04/17 19:47) Nursing Note by Nicole Diallo Dr. in house and made rounds earlier. New orders received. Pepcid 20mg IVP given at this time as ordered. Initialized on 08/04/17 19:47 - END OF NOTE - Vitals & Intake/Output Vital Signs: Vital Signs Temperature 98.7 F 08/05/17 07:04 Pulse Rate 86 08/05/17 07:15 Respiratory Rate 20 08/05/17 07:15 Blood Pressure 137/65 08/05/17 07:04 O2 Sat by Pulse Oximetry 95 08/05/17 07:15 Oxygen-Last Documented O2 Percentage 2 Liters = 28% Intake & Output: Intake & Output 08/02/17 08/03/17 08/04/17 08/05/17 11:59 11:59 11:59 11:59 Intake Total 1985 3826 919 Output Total 500 900 900 Balance 1485 2926 19 Weight 100 kg - Lab Result Diagrams: 08/04/17 10:34 08/04/17 10:34 Lab Results-Last 24 Hrs: Accuchecks Date 08/04/17 Date 08/04/17 Date 08/04/17 Time 22:33 Time 16:30 Time 11:30 Accucheck Value: 93 Accucheck Value: 111 Accucheck Value: 122 Accucheck Value: 131 Lab Results-Last 24 Hours 08/04/17 08/04/17 Range/Units 10:34 10:34 WBC 15.7 H (4.0-10.5) K/mm3 RBC 4.41 (4.1-5.4) M/mm3 Hgb 13.2 (12.0-16.0) gm/dl Hct 38.9 (35-47) % MCV 88.2 (78-100) fl MCH 29.9 (26-32) pg MCHC 33.9 (32-36) g/dl RDW 14.4 H (11.5-14.0) % Plt Count 275 (150-450) K/mm3 MPV 10.7 H (6-9.5) fl Sodium 136 L (137-145) mmol/L Potassium 4.0 (3.5-5.1) mmol/L Chloride 104 (98-107) mmol/L Carbon Dioxide 25 (22-30) mmol/L Anion Gap 10.1 (5-15) MEQ/L BUN 9 (7-17) mg/dL Creatinine 0.75 (0.52-1.04) mg/dL Estimated GFR > 60.0 ML/MIN Glucose 152 H (74-106) mg/dL Calcium 7.5 L (8.4-10.2) mg/dL Total Bilirubin 0.80 (0.2-1.3) mg/dL AST 67 H (14-36) U/L ALT 46 H (0-35) U/L Alkaline Phosphatase 130 H (38-126) U/L Serum Total Protein 5.2 L (6.3-8.2) g/dL Albumin 2.5 L (3.5-5.0) g/dL Micro Results-Entire Visit: Microbiology 08/02/17 15:29 Urine Culture - Final Urine, Catheterized NO GROWTH Accuchecks Date 08/04/17 Date 08/04/17 Date 08/04/17 Time 22:33 Time 16:30 Time 11:30 Accucheck Value: 93 Accucheck Value: 111 Accucheck Value: 122 Accucheck Value: 131 - Radiology Exams Ordered Rad Exams-Entire Visit: Radiology Procedures Category Date Time Status CHEST 1 VIEW (PORTABLE) Urgent Exams 08/03/17 10:11 Completed - Procedures and Test Procedures and Tests throughout Hospitalization: Therapy Orders & Screens 08/02/17 19:00 Respiratory MDI BID Comment: ADVAIR 115/21 2 PUFFS BID Diagnosis: abdominal pain, nausea vomiting Respiratory Nebulizer Q6H Comment: DUONEB Q6 HOURS Diagnosis: abdominal pain, nausea vomiting 08/02/17 19:37 Respiratory Therapy Consult ROUTINE Comment: Reason For Exam: Diagnosis: abdominal pain, nausea vomiting 08/02/17 20:00 Oxygen NASAL CANNULA 2 lpm Comment: Diagnosis: abdominal pain, nausea vomiting 08/02/17 21:14 RT Screen per Nursing Assess ONCE Comment: Protocol Order Physician Instructions: Greater than 3 points order RT Admission Screen Reason For Exam: Triggered on Admission Diagnosis: Pneumonia, hypokalemia, abd pain, vomiting, diarrhea Diagnosis: Pneumonia, hypokalemia, abd pain, vomiting, diarrhea Pneumonia: Yes Home O2: No Asthma: No CHF: Yes Home CPAP/BIPAP: No Home Nebs/MDI: No Total Points: 6 ST Screen per Nursing Assess Comment: Protocol Order Physician Instructions: Greater than [address] Admission Screening Reason For Exam: Triggered on Admission Diagnosis: Pneumonia, hypokalemia, abd pain, vomiting, diarrhea CVA/Dyshpagia/Aphasia: No Cognitive Deficits: No Dehydration/Nutrition Deficit: No Reflux: Yes Oral-Motor Difficulties: No Pneumonia: Yes Intermediate Resident: No Total Points: 8 Discharge Exam General Appearance: no apparent distress, alert Neurologic Exam: alert, oriented x 3, cooperative, normal mood/affect, nml cerebellar function, sensation nml, No motor deficits Skin Exam: normal color, warm, dry Eye Exam: PERRL, EOMI, eyes nml inspection Ears, Nose, Throat Exam: normal ENT inspection, pharynx normal, moist mucous membranes Neck Exam: normal inspection, non-tender, supple, full range of motion Respiratory Exam: normal breath sounds, lungs clear, No respiratory distress Cardiovascular Exam: regular rate/rhythm, normal heart sounds Gastrointestinal/Abdomen Exam: soft, No tenderness, No mass Extremity Exam: normal inspection, normal range of motion Back Exam: normal inspection, normal range of motion, No CVA tenderness, No vertebral tenderness Pelvic Exam: deferred Rectal Exam: deferred Final Diagnosis/Problem List - Final Discharge Diagnosis/Problem (1) Abdominal pain Current Visit: Yes Status: Resolved Onset Date: ~08/03/17 (2) Pneumonia Current Visit: Yes Status: Acute Onset Date: ~08/03/17 Assessment & Plan: improving, will keep her on abx for 2 more days (3) Hypokalemia Current Visit: Yes Status: Resolved Onset Date: ~08/03/17 (4) Vomiting and diarrhea Current Visit: Yes Status: Resolved Onset Date: ~08/03/17 (5) Diabetes mellitus type 2 Current Visit: Yes Status: Chronic (6) Hypertension Current Visit: Yes Status: Chronic (7) Lung cancer Current Visit: Yes Status: Acute - Discharge Discharge Date: 08/05/17 Disposition: DC TO [facility] Condition: Stable Prescriptions: New Albuterol/Ipratropium 3ml Neb* [DUONEB 0.5-3 MG/3 ml Neb] 3 ml IH Q6HRT ampul.neb Continue Fluoxetine HCl 20 mg [Prozac 20 MG] 20 mg PO DAILY Carvedilol 12.5 mg [Coreg 12.5 mg] 12.5 mg PO BID Levothyroxine Sodium 25 Mcg [Synthroid 25 Mcg] 25 mcg PO DAILY Lutein 10 mg PO DAILY Loratadine 10 mg [Claritin 10 mg] 10 mg PO DAILY Insulin Detemir [Levemir] 35 unit SQ HS Potassium Chloride 10 Meq Tab* [Klor Con 10 MEQ] 20 meq PO BID Omeprazole 20 MG [Prilosec 20 mg] 20 mg PO DAILY Amlodipine Besylate 5 mg [Norvasc 5 mg] 2.5 mg PO DAILY Nitroglycerin 0.4 mg Tablet [Nitrostat 0.4 MG Tablet] 0.4 mg SL UD Lisinopril 20 mg [Zestril 20 MG] 10 mg PO BID Fluticasone Propionate [Flonase Allergy Relief] 2 spray NS DAILY Ondansetron [Zofran Odt] 4 mg PO Q6-8HPRN PRN #10 tab.rapdis PRN Reason: Nausea/Vomiting Morphine Sulfate 5 mg PO Q2H/PRN PRN PRN Reason: Pain Clindamycin HCl [Cleocin HCl] 150 mg PO QID Oxycodone HCl/Acetaminophen [Oxycodone-Acetaminophen 5-325] 1 each PO Q4HPRN PRN 15 Days #60 PRN Reason: Pain Additional Instructions: [facility] ORDERS: PT/OT EVAL AND TREAT UP TO CHAIR WITH MEALS SEE ATTACHED MED LIST FOR CURRENT MED ORDERS REGULAR DIET TOLERATED Follow up with: RBEECCA GALVEZ MD [Primary Care Provider] - 1 Week
[2017-08-05] MEDS ORDERED: PROTONIX 40 MG IV IV SCH (10:00)
[2017-08-05 11:35] VITALS: BP 149/72
[2017-08-05 12:46] VITALS: PULSE 91
[2017-08-05 12:58] VITALS: O2SAT 90
== END 2017-08-05 12:55 | DRG 391 ==
LOC: ED 14:25 → MED SURG 18:00
PROVIDERS: ADMIT General Practice; ATTEND General Practice
DX: R10.9 Unspecified abdominal pain (principal); J18.9 Pneumonia, unspecified organism; C34.90 Malignant neoplasm of unspecified part of unspecified bronchus or lung; E87.6 Hypokalemia; E11.9 Type 2 diabetes mellitus without complications; R11.10 Vomiting, unspecified; R19.7 Diarrhea, unspecified; I50.9 Heart failure, unspecified; I10 Essential (primary) hypertension; J44.9 Chronic obstructive pulmonary disease, unspecified; J45.909 Unspecified asthma, uncomplicated; M19.90 Unspecified osteoarthritis, unspecified site; E03.9 Hypothyroidism, unspecified; K21.9 Gastro-esophageal reflux disease without esophagitis; F32.9 Major depressive disorder, single episode, unspecified; Z85.3 Personal history of malignant neoplasm of breast; Z85.41 Personal history of malignant neoplasm of cervix uteri; Z85.118 Personal history of other malignant neoplasm of bronchus and lung; Z79.899 Other long term (current) drug therapy
CPT/HCPCS: 36415; 71045; 74022; 80053; 81000; 82150; 82272; 85025; 85027; 87086; 94150; 94640; 94760; 96360; 96365; 96374; 96375; 99285; P9612; J0456; J1642; J2405; J2550; A9270-GY

== ENCOUNTER 2017-08-06 05:36 | Emergency (ER) | payer MEDICARE, OTHER ==
[2017-08-06] MEDS ORDERED: Dextrose 5%-NS IV Solution 1000 ML 1,000 ML IV ONE (05:50)
[2017-08-06] MEDS ORDERED: DEXTROSE 5%-NORMAL SALINE 500 ML 500 ML IV SCH (06:00)
--- NOTE | 2017-08-06 06:03 | ERPHSYRPT ---
- History of Present Illness Time Seen by Provider: 08/06/17 05:55 Source: patient, EMS Physician History: PATIENT WITH A HISTORY OF STAGE 4 PULMONARY CARCINOMA, FOUND UNRESPONSIVE AT CUSTODIAL WITH A GLUCOSE OF 27, EMS ADMINISTERED GLUCOGON, GLUCOSE IMPROVED TO 29, THEN INTRAVENOUS 1 AMP OF DEXTROSE 50, GLUCOSE OF 258. PATIENT IS A DNR AND WANTS TO BE LEFT ALONE. DENIES CHEST PAIN, DYSPNEA, NAUSEA OR EMESIS. ADMITS TO TAKING HER INSULIN WITHOUT EATING. Severity: moderate Character of Deficits: none Baseline/Normal Cognition: alert oriented x 3 Current Cognition: alert oriented x 3 Baseline Gait: uses walker Associated Symptoms: denies symptoms Allergies/Adverse Reactions: doxycycline Allergy (Intermediate, Verified 08/02/17 14:33) Swelling Iodinated Contrast- Oral and IV Dye Allergy (Intermediate, Verified 08/02/17 14: 33) Hives hives, rash, diff breathing belladonna alkaloids [From B & O 16-A Supprette] Allergy (Mild, Verified 14:33) CHILD ALLERGY cephalexin monohydrate [From Keflex] Allergy (Mild, Verified 08/02/17 14:33) Hives furosemide [From Lasix] Allergy (Mild, Verified 08/02/17 14:33) HEART ARTHYM prochlorperazine edisylate [From Compazine] Allergy (Mild, Verified 08/02/17 14: 33) HALLUCINATIONS prochlorperazine maleate [From Compazine] Allergy (Mild, Verified 08/02/17 14:33 ) HALLUCINATIONS Sulfa (Sulfonamide Antibiotics) [Sulfa(Sulfonamide Antibiotics)] Allergy (Mild, Verified 08/02/17 14:33) Hives codeine [Codeine] Adverse Reaction (Mild, Verified 08/02/17 14:33) Headache hydrocodone bitartrate [From Vicodin] Adverse Reaction (Mild, Verified 08/02/17 14:33) Headache ketorolac tromethamine [From Toradol] Adverse Reaction (Mild, Verified 08/02/17 14:33) Vomiting metformin HCl [From Glucophage] Adverse Reaction (Mild, Verified 08/02/17 14:33) Vomiting naproxen [From Naprosyn] Adverse Reaction (Mild, Verified 08/02/17 14:33) Headache opium *RETIRED-06/05/12 [From B & O 16-A Supprette] Adverse Reaction (Mild, Verified 08/02/17 14:33) DON'T LIKE THEM phenytoin sodium [From Dilantin] Adverse Reaction (Mild, Verified 08/02/17 14:33 ) FEEL DRUNK phenytoin sodium extended [From Dilantin] Adverse Reaction (Mild, Verified 08/02 14:33) FEEL DRUNK Lactobacillus acidophilus [From Acidophilus] Adverse Reaction (Verified 14:33) diuretics Allergy (Intermediate, Uncoded 08/02/17 14:33) HEART ARRHYTHMIAS pt states she is allergic to all diuretics. pt has cardiac arrhythmias influenza vaccine Adverse Reaction (Uncoded 08/02/17 14:33) Home Medications: Amlodipine Besylate 5 mg [Norvasc 5 mg] 2.5 mg PO DAILY 10/14/16 [History] Carvedilol 12.5 mg [Coreg 12.5 mg] 12.5 mg PO BID 10/14/16 [History] Fluoxetine HCl 20 mg [Prozac 20 MG] 20 mg PO DAILY 10/14/16 [History] Insulin Detemir [Levemir] 35 unit SQ HS 10/14/16 [History] Levothyroxine Sodium 25 Mcg [Synthroid 25 Mcg] 25 mcg PO DAILY 10/14/16 [ History] Loratadine 10 mg [Claritin 10 mg] 10 mg PO DAILY 10/14/16 [History] Lutein 10 mg PO DAILY 10/14/16 [History] Omeprazole 20 MG [Prilosec 20 mg] 20 mg PO DAILY 10/14/16 [History] Potassium Chloride 10 Meq Tab* [Klor Con 10 MEQ] 20 meq PO BID 10/14/16 [ History] Lisinopril 20 mg [Zestril 20 MG] 10 mg PO BID 03/26/17 [History] Nitroglycerin 0.4 mg Tablet [Nitrostat 0.4 MG Tablet] 0.4 mg SL UD [History] Fluticasone Propionate [Flonase Allergy Relief] 2 spray NS DAILY 06/06/17 [ History] Clindamycin HCl [Cleocin HCl] 150 mg PO QID 08/02/17 [History] Morphine Sulfate 5 mg PO Q2H/PRN PRN 08/02/17 [History] Hx Tetanus, Diphtheria Vaccination/Date Given: No Hx Influenza Vaccination/Date Given: No Hx Pneumococcal Vaccination/Date Given: Yes - Review of Systems Constitutional: No Fever, No Chills Eyes: No Symptoms Ears, Nose, & Throat: No Symptoms Respiratory: No Cough, No Dyspnea Cardiac: No Symptoms, No Chest Pain, No Edema, No Syncope Abdominal/Gastrointestinal: No Abdominal Pain, No Nausea, No Vomiting, No Diarrhea Genitourinary Symptoms: No Symptoms, No Dysuria Musculoskeletal: No Symptoms, No Back Pain, No Neck Pain Skin: No Rash Neurological: No Symptoms, Other (FOUND UNRESPONSIVE BY EMS), No Dizziness, No Focal Weakness, No Sensory Changes Psychological: No Symptoms Endocrine: No Symptoms All Other Systems: Reviewed and Negative - Past Medical History Pertinent Past Medical History: Yes Neurological History: No Pertinent History ENT History: Macular Degeneration Cardiac History: Congestive Heart Failure, Hypertension Respiratory History: Asthma, Bronchitis, COPD, Emphysema, Lung Cancer Endocrine Medical History: Diabetes Type II, Hypothyroidism Musculoskeletal History: Arthritis, Osteoarthritis GI Medical History: GERD History: No Pertinent History Psycho-Social History: Depression Female Reproductive Disorders: Breast Cancer, Cervical Cancer Other Medical History: CANCERS ALL IN REMISSION - Past Surgical History Past Surgical History: Yes Neuro Surgical History: No Pertinent History Cardiac: Cardiac Catheterization Respiratory: Lobectomy Gastrointestinal: Appendectomy, Cholecystectomy, Hemorrhoidectomy Genitourinary: No Pertinent History Musculoskeletal: Orthopedic Surgery Female Surgical History: Hysterectomy, Tubal Ligation, Other Other Surgical History: MASTECTOMY RT BREAST,BREAST CA,LUNG RT MIDDLE LOBE REMOVED,NISSON FLUNDOPLASTY,KNEE BACL SURG, shoulder surgery - Social History Smoking Status: Former smoker How long have you smoked: 5 Exposure to second hand smoke: No Drug Use: none Patient Lives Alone: Yes - Nursing Vital Signs Nursing Vital Signs: Initial Vital Signs Pulse Rate 76 08/06/17 05:38 Respiratory Rate 23 08/06/17 05:38 Blood Pressure 154/74 08/06/17 05:38 O2 Sat by Pulse Oximetry 92 L 08/06/17 05:38 Pain Scale Pain Intensity 0 - Avel Coma Scale Best Eye Response (Avel): (4) open spontaneously Best Verbal Response (Avel): (5) oriented Best Motor Response ([place]): (6) obeys commands Avel Total: 15 - Physical Exam General Appearance: no apparent distress, alert, other (ARRIVES TO EMERGENCY VIA EMS ALERT AND APPROPRIATE) Eye Exam: bilateral eye: PERRL, EOMI Ears, Nose, Throat Exam: normal ENT inspection, moist mucous membranes Neck Exam: normal inspection, non-tender, supple Respiratory: normal breath sounds, lungs clear, airway intact, No respiratory distress Cardiovascular: regular rate/rhythm, No edema Gastrointestinal: soft, No tenderness, No distention Back Exam: normal inspection Extremity Exam: normal inspection, No pedal edema Mental Status: alert, 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 Coordination/Gait: normal finger to nose, normal gait Skin Exam: normal color, warm, dry, No rash Ordered Tests: Active Orders 24 hr Category Date Time Status EKG-ER Only STAT Care 08/06/17 05:58 Active Oxygen-ED Only NASAL CANNULA 2 lpm Care 08/06/17 05:55 Active Medication Summary Generic Name Dose Route Start Last Admin Trade Name Freq PRN Reason Stop Dose Admin Dextrose/Sodium Chloride 500 mls @ 250 mls/hr 08/06/17 06:00 Dextrose 5%-Normal Saline 500 Ml IV 09/05/17 05:59 .Q2H ANDREW Discontinued Medications Generic Name Dose Route Start Last Admin Trade Name Freq PRN Reason Stop Dose Admin Dextrose/Sodium Chloride Confirm 08/06/17 05:50 Dextrose 5%-Ns Iv Solution 1000 Ml Administered 08/06/17 05:51 Dose 1,000 mls @ ud IV .STK-MED ONE - Progress Progress Note: 08/06/17 07:07 ACCUCHECK 107, PATIENT LETHARGIC GIVEN ADDITIONAL DOSE 1 AMP D-50, PATIENT ALERT AND REFUSES TREATMENT, REFUSES BLOOD DRAW. REFUSES ADDITIONAL DOSE OF D-50 , GIVEN IV D-5 NS AT 250ML/HR ACCUCHECK AT 1907 IS 150 Counseled pt/family regarding: lab results, diagnosis, need for follow-up - Departure Time of Disposition: 07:14 Departure Disposition: Home Clinical Impression: HYPOGLYCEMIA Condition: Stable Critical Care Time: No Referrals: REBECCA GALVEZ MD [Primary Care Provider] - Additional Instructions: GIVE INSULIN ONLY IF TAKING MEALS, AND FOLLOW FREQUENT GLUCOSE CHECKS. CONSULT YOUR PRIMARY CARE PROVIDER IN 3-5 DAYS
[2017-08-06] MEDS ORDERED: PROVENTIL 2.5 MG/3 ML NEB IH ONE ×2 (08:54→09:02)
[2017-08-06 09:01] VITALS: BP 141/86
[2017-08-06 09:09] VITALS: PULSE 77; O2SAT 95
== END 2017-08-06 09:29 ==
LOC: ED 05:36
DX: E11.649 Type 2 diabetes mellitus with hypoglycemia without coma (principal); Z79.4 Long term (current) use of insulin; Z85.118 Personal history of other malignant neoplasm of bronchus and lung
CPT/HCPCS: 94640; 99284; J7609; A9270-GY